=== PATIENT | female | born 1945 | race Caucasian/White ===

== ENCOUNTER → 2017-11-01 | Outpatient (CLI) | payer OTHER, SELFPAY ==
[~2017-11-01] MED LIST: ASPIRIN325 PO; CARBIDOPA-LEVO1 EAC3 PO; CARVEDILOL25 MG PO; DIABETA 5MG TABL5 MG PO; DIOVAN PO; DIOVAN40 MG PO; FLEXERIL PO; FUROSEMIDE 20 M20 M1 PO; GLUMETZA500 PO; GLYBURIDE 2.52.5 M1 PO; GLYBURIDE PO; HYDROCHLOROTHIA25 M1 PO; HYDROCODONE-AP1 EAC6 PO; JANUVIA25 MG PO; LIPITOR20 MG PO; OSTEO BI-FLEX1 EAC1 PO; POTASSIUM CHLO10 ME1 PO; PREDNISONE 2.52.5 M1 PO; PREDNISONE 20 M20 M1 PO; PREMARIN0.3 MG PO; PRILOSEC 20 MG20 MG PO; TRAMADOL 50 MG50 MG PO; TYLENOL EX-STR500 M2 PO; ULTRAM 50MG TAB50 MG PO
== END ==
LOC: M.RAD 09:48
DX: M47.894 Other spondylosis, thoracic region (principal); M47.896 Other spondylosis, lumbar region; M47.892 Other spondylosis, cervical region; M41.86 Other forms of scoliosis, lumbar region; M94.0 Chondrocostal junction syndrome [Tietze]

== ENCOUNTER → 2017-12-03 | Outpatient (CLI) | payer OTHER, SELFPAY ==
[2017-12-03 08:05] LABS: CREATININE 0.6 mg/dL (0.6-1.3)
== END ==
LOC: M.CT 07:40 → M.LAB 08:00 → M.CT 09:00
PROVIDERS: Family Medicine
DX: Z12.31 Encounter for screening mammogram for malignant neoplasm of breast (principal); K57.30 Diverticulosis of large intestine without perforation or abscess without bleeding; K44.9 Diaphragmatic hernia without obstruction or gangrene; M47.896 Other spondylosis, lumbar region

== ENCOUNTER → 2018-01-02 | Outpatient (CLI) | payer OTHER, SELFPAY | LOC: M.RAD 09:08 | DX: S80.02XA Contusion of left knee, initial encounter (principal); M17.12 Unilateral primary osteoarthritis, left knee; M19.072 Primary osteoarthritis, left ankle and foot; M25.462 Effusion, left knee; Z91.81 History of falling; X58.XXXA Exposure to other specified factors, initial encounter; Y93.89 Activity, other specified; Y92.89 Other specified places as the place of occurrence of the external cause; Y99.8 Other external cause status ==

== ENCOUNTER → 2018-04-14 | Outpatient (CLI) | payer OTHER, SELFPAY | LOC: M.CT 08:27 | DX: J32.0 Chronic maxillary sinusitis (principal) ==

== ENCOUNTER → 2018-06-11 | Outpatient (CLI) | payer OTHER, SELFPAY | LOC: M.MRI 06-02 11:03 | DX: S83.207A Unspecified tear of unspecified meniscus, current injury, left knee, initial encounter (principal); M71.22 Synovial cyst of popliteal space [Baker], left knee; M25.462 Effusion, left knee; M48.02 Spinal stenosis, cervical region; M50.323 Other cervical disc degeneration at C6-C7 level; X58.XXXA Exposure to other specified factors, initial encounter; Y93.89 Activity, other specified; Y92.89 Other specified places as the place of occurrence of the external cause; Y99.8 Other external cause status ==

== ENCOUNTER → 2019-02-11 | Outpatient (CLI) | payer OTHER ==
[~2019-02-11] MED LIST changes: +ESTRADIOL 1 MG T1 M1 PO; +PROTONIX 20 MG20 M1 PO
[2019-02-11 11:17] LABS: ABSOLUTE LYMPHOCYTES 1.8 thou/uL (0.8-5.3); ABSOLUTE MONOCYTES 0.6 thou/uL (0.0-1.2); ABSOLUTE NEUTROPHILS 4.3 thou/uL (1.6-8.1); BASOPHILS 0.7 %; EOSINOPHILS 0.4 %; HEMATOCRIT 32.3 % (37.0-47.0); HEMOGLOBIN 9.8 gm/dL (12.0-15.0); LYMPHOCYTES 26.8 %; MCH 20.2 pg (26.0-34.0); MCHC 30.4 g/dL (28.0-37.0); MCV 66.6 fL (80.0-100.0); MONOCYTES 8.2 %; MPV 8.6 fl. (7.2-11.1); NUCLEATED RBCS 0 /100WBC; PLATELET COUNT* 295 thou/uL (150-400); POLYS 63.9 %; RBC 4.85 mil/uL (4.20-5.00); WBC 6.7 thou/uL (4.0-11.0)
[2019-02-11 11:45] LABS: ALBUMIN 3.5 g/dL (3.4-5.0); CALCIUM 9.5 mg/dL (8.5-10.1); CREATININE 0.4 mg/dL (0.6-1.3); POTASSIUM 3.9 mmol/L (3.5-5.1); TOTAL BILIRUBIN 0.4 mg/dL (<0.1-1.0); TOTAL PROTEIN 6.7 g/dL (6.4-8.2)
[2019-02-11 11:56] LABS: HYPOCHROMASIA 2+
[2019-02-11 11:57] LABS: MICROCYTES 2+
[2019-02-11 11:58] LABS: ANISOCYTOSIS 2+
[2019-02-11 11:59] LABS: PLATELET ESTIMATE ADEQUATE
[2019-02-12 09:08] LABS: GLYCOHEMOGLOBIN (HGB A1C) 7.9 % (4.8-5.6)
== END ==
LOC: M.LAB 10:58
PROVIDERS: Nurse Practitioner Family
DX: I10 Essential (primary) hypertension (principal); E11.9 Type 2 diabetes mellitus without complications

== ENCOUNTER 2019-02-17 09:16 | Emergency (ER) | payer OTHER ==
[~2019-02-17] VITALS: Ht 162.6 cm; Wt 73.5 kg
[~2019-02-17 09:16] MED LIST changes: -DIABETA 5MG TABL5 MG PO; -ESTRADIOL 1 MG T1 M1 PO; +GLYBURIDE 3 MG M3 MG PO; -PROTONIX 20 MG20 M1 PO
[2019-02-17] MEDS ORDERED: TRAMADOL 50 MG50 MG PO (09:30)
[2019-02-17] MEDS ORDERED: PROTONIX 20 MG20 M1 PO (09:30)
[2019-02-17] MEDS ORDERED: ESTRADIOL 1 MG T1 M1 PO (09:31)
[2019-02-17 09:44] LABS: ABSOLUTE LYMPHOCYTES 1.3 thou/uL (0.8-5.3); ABSOLUTE MONOCYTES 0.6 thou/uL (0.0-1.2); ABSOLUTE NEUTROPHILS 3.2 thou/uL (1.6-8.1); BASOPHILS 0.7 %; EOSINOPHILS 0.4 %; HEMATOCRIT 29.7 % (37.0-47.0); HEMOGLOBIN 9.1 gm/dL (12.0-15.0); LYMPHOCYTES 25.3 %; MCH 20.4 pg (26.0-34.0); MCHC 30.5 g/dL (28.0-37.0); MCV 66.7 fL (80.0-100.0); MONOCYTES 11.5 %; MPV 7.7 fl. (7.2-11.1); NUCLEATED RBCS 0 /100WBC; PLATELET COUNT* 229 thou/uL (150-400); POLYS 62.1 %; RBC 4.45 mil/uL (4.20-5.00); RDW-CV 18.9 % (10.5-14.5); WBC 5.1 thou/uL (4.0-11.0)
[2019-02-17 09:54] LABS: CREATININE 0.5 mg/dL (0.6-1.3); POTASSIUM 3.7 mmol/L (3.5-5.1); PROTIME 10.7 Seconds (9.20-11.50)
[2019-02-17 09:59] LABS: ALBUMIN 3.2 g/dL (3.4-5.0); TOTAL BILIRUBIN 0.4 mg/dL (<0.1-1.0); TOTAL PROTEIN 6.5 g/dL (6.4-8.2)
[2019-02-17 10:50] VITALS: BP 151/54
[2019-02-17 11:08] LABS: HYPOCHROMASIA 2+
[2019-02-17 11:09] LABS: ANISOCYTOSIS 2+; MICROCYTES 1+
--- NOTE | 2019-02-17 16:27 | EKG ---
[place] [address] ELECTROCARDIOGRAM REPORT Name: KIERRA SHARP [id number] Admission: 02/17/19 Attend Phys: Discharge: 02/17/19 Date of : 47 Report #: [id number] THIS REPORT FOR: //name// [facility] ED Test Date: 2019-02-17 Test Time: 09:43:27 Pat Name: KIERRA SHARP Department: Room: Gender: F Side Guider: : 1945 Requested By: Hadley Houston Order Number: [id number] MD: Hugh Dempsey Measurements Intervals [place] Rate: 98 P: 54 FL: 135 QRS: -5 QRSD: 90 T: 104 QT: 345 QTc: 441 Interpretive Statements Sinus rhythm Ventricular premature complex Nonspecific repol abnormality, lateral leads Borderline ST elevation, anterior leads Compared to ECG 11/29/2016 11:43:53 Ventricular premature complex(es) now present Early repolarization now present ST (T wave) deviation now present Electronically Signed On 02-17-2019 16:27:00 CDT by Hugh Dempsey [email or web address] <ELECTRONICALLY SIGNED> By: Hugh Dempsey MD, [facility] 02/17/19 1627 0943 0943 Hugh Dempsey MD, [facility] /EPI
== END 2019-02-17 10:50 | disposition home or self-care (01) ==
LOC: M.ERS 09:16
PROVIDERS: Family Medicine
DX: R53.1 Weakness (principal); E11.9 Type 2 diabetes mellitus without complications; I10 Essential (primary) hypertension; M06.9 Rheumatoid arthritis, unspecified; Z90.710 Acquired absence of both cervix and uterus; Z98.890 Other specified postprocedural states; Z88.5 Allergy status to narcotic agent

== ENCOUNTER 2019-02-20 11:27 | Inpatient (IN) | payer OTHER ==
[~2019-02-20] VITALS: Ht 162.6 cm; Wt 73.5 kg
[~2019-02-20 11:27] MED LIST changes: +ESTRADIOL 1 MG T1 M1 PO; +PROTONIX 20 MG20 M1 PO
[2019-02-20 11:44] VITALS: BP 179/76
[2019-02-20 11:59] LABS: ABSOLUTE LYMPHOCYTES 1.9 thou/uL (0.8-5.3); ABSOLUTE MONOCYTES 0.7 thou/uL (0.0-1.2); ABSOLUTE NEUTROPHILS 3.4 thou/uL (1.6-8.1); BASOPHILS 0.5 %; EOSINOPHILS 0.4 %; HEMATOCRIT 31.2 % (37.0-47.0); HEMOGLOBIN 9.6 gm/dL (12.0-15.0); LYMPHOCYTES 30.9 %; MCH 20.6 pg (26.0-34.0); MCHC 30.8 g/dL (28.0-37.0); MCV 66.9 fL (80.0-100.0); MPV 8.8 fl. (7.2-11.1); NUCLEATED RBCS 0 /100WBC; PLATELET COUNT* 250 thou/uL (150-400); POLYS 56.2 %; RBC 4.66 mil/uL (4.20-5.00); RDW-CV 19.2 % (10.5-14.5); WBC 6.1 thou/uL (4.0-11.0)
[2019-02-20 12:04] LABS: CALCIUM 9.8 mg/dL (8.5-10.1); CREATININE 0.4 mg/dL (0.6-1.3); POTASSIUM 3.8 mmol/L (3.5-5.1)
[2019-02-20 12:09] LABS: ALBUMIN 3.5 g/dL (3.4-5.0); TOTAL BILIRUBIN 0.4 mg/dL (<0.1-1.0); TOTAL PROTEIN 7.1 g/dL (6.4-8.2)
[2019-02-20 12:30] LABS: PROTIME 10.6 Seconds (9.20-11.50)
[2019-02-20 12:52] LABS: PLATELET ESTIMATE ADEQUATE
[2019-02-20 12:53] LABS: HYPOCHROMASIA 1+; LARGE PLATELETS OCCASIONAL; MICROCYTES 2+
[2019-02-20 12:54] LABS: ANISOCYTOSIS 1+; POIKILOCYTOSIS 2+
[2019-02-20 14:14] LABS: URINE BILIRUBIN NEGATIVE (Negative); URINE BLOOD NEGATIVE (Negative); URINE CLARITY CLEAR; URINE COLOR YELLOW; URINE GLUCOSE-RANDOM NEGATIVE (Negative); URINE KETONES NEGATIVE (Negative); URINE LEUKOCYTES-REFLEX NEGATIVE (Negative); URINE NITRITE-REFLEX NEGATIVE (Negative); URINE PROTEIN NEGATIVE (Negative); URINE UROBILINOGEN 0.2 E.U./dl (0.2-1.0)
[2019-02-20] MEDS ORDERED: ADULT LOW DOSE81 MG PO (14:35)
[2019-02-20 16:28] VITALS: BP 138/59
--- NOTE | 2019-02-20 16:49 | EKG ---
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 : 1945 Requested By: Shelby Frederick Order Number: [id number] MD: Hugh Dempsey Measurements Intervals [place] Rate: 103 P: 45 MO: 139 QRS: 2 QRSD: 84 T: 83 QT: 342 QTc: 448 Interpretive Statements Sinus tachycardia Ventricular premature complex Borderline ST elevation, anterior leads Compared to ECG 02/17/2019 09:43:27 Sinus rhythm no longer present Early repolarization no longer present ST (T wave) deviation still present Electronically Signed On 02-20-2019 16:49:43 CDT by Hugh Dempsey [email or web address] <ELECTRONICALLY SIGNED> By: Hugh Dempsey MD, [facility] 02/20/19 1649 1147 1147 Hugh Dempsey MD, [facility] /EPI
[2019-02-20 17:00] VITALS: BP 141/62
[2019-02-20 20:00] VITALS: BP 160/61
[2019-02-21] VITALS (8 sets, daily range): BP systolic 89–162; BP diastolic 51–77
[2019-02-21 04:59] LABS: HEMATOCRIT 29.2 % (37.0-47.0); HEMOGLOBIN 8.7 gm/dL (12.0-15.0); MCH 20.1 pg (26.0-34.0); MPV 8.8 fl. (7.2-11.1); RBC 4.35 mil/uL (4.20-5.00); RDW-CV 19.5 % (10.5-14.5); WBC 5.4 thou/uL (4.0-11.0)
[2019-02-21 05:22] LABS: ALBUMIN 3.1 g/dL (3.4-5.0); ALKALINE PHOSPHATASE 86 U/L (46-116); ANION GAP 11 mmol/L (7-16); BUN 10 mg/dL (7-18); CALCIUM 9.4 mg/dL (8.5-10.1); CHLORIDE 110 mmol/L (98-107); CO2 24 mmol/L (21-32); CREATININE 0.3 mg/dL (0.6-1.3); GLUCOSE 121 mg/dL (70-99); SGOT 14 U/L (15-37); SGPT 24 U/L (30-65); SODIUM 145 mmol/L (136-145); TOTAL BILIRUBIN 0.4 mg/dL (<0.1-1.0); TOTAL PROTEIN 5.8 g/dL (6.4-8.2); TROPONIN-I LEVEL <0.06 ng/mL (<0.06)
[2019-02-22] VITALS (8 sets, daily range): BP systolic 144–171; BP diastolic 56–78
[2019-02-22 02:09] LABS: GLYCOHEMOGLOBIN (HGB A1C) 7.7 % (4.8-5.6)
[2019-02-22 05:28] LABS: CHOLESTEROL 89 mg/dL (<200); HDL CHOLESTEROL 34 mg/dL (>40); LDL CHOLESTEROL 39 mg/dL (<100); TC:HDL 2.6 Ratio (Not establshd); TRIGLYCERIDE 80 mg/dL (<150); VLDL 16 mg/dL (<40)
[2019-02-22 05:35] LABS: SERUM ASSESSMENT CLEAR
[2019-02-23] VITALS (8 sets, daily range): BP systolic 142–174; BP diastolic 58–74
[2019-02-23 04:22] LABS: ABSOLUTE EOSINOPHILS 0.1 thou/uL (0.0-0.7); ABSOLUTE LYMPHOCYTES 1.9 thou/uL (0.8-5.3); ABSOLUTE MONOCYTES 0.6 thou/uL (0.0-1.2); ABSOLUTE NEUTROPHILS 2.6 thou/uL (1.6-8.1); BASOPHILS 0.6 %; HEMATOCRIT 28.1 % (37.0-47.0); HEMOGLOBIN 8.5 gm/dL (12.0-15.0); LYMPHOCYTES 36.1 %; MCH 20.3 pg (26.0-34.0); MCHC 30.2 g/dL (28.0-37.0); MCV 67.2 fL (80.0-100.0); MPV 8.7 fl. (7.2-11.1); NUCLEATED RBCS 0 /100WBC; PLATELET COUNT* 194 thou/uL (150-400); POLYS 50.3 %; RBC 4.19 mil/uL (4.20-5.00); RDW-CV 19.2 % (10.5-14.5); WBC 5.2 thou/uL (4.0-11.0)
[2019-02-23 04:35] LABS: CALCIUM 9.5 mg/dL (8.5-10.1); CREATININE 0.3 mg/dL (0.6-1.3); POTASSIUM 3.8 mmol/L (3.5-5.1)
[2019-02-23 06:34] LABS: ANISOCYTOSIS 1+; HYPOCHROMASIA 2+; MICROCYTES 2+
[2019-02-23 06:35] LABS: PLATELET ESTIMATE ADEQUATE
[2019-02-23] MEDS ORDERED: COZAAR 25 MG TA25 M2 PO (10:06)
[2019-02-23] MEDS ORDERED: PLAVIX 75 MG TA75 M1 PO (10:07)
--- NOTE | 2019-02-23 12:29 | CON ---
[address] [address] CONSULTATION Name: KIERRA SHARP Room: [address] ADM IN M.R.#: [id number] Admission: 02/20/19 Attend Phys: Leander Snider, Discharge: Date of : 47 Report #: [id number] THIS REPORT FOR: //name// CC: Kaitlin Snider DATE OF SERVICE: 02/20/2019 DICTATED BY: Dr. Eckert. HISTORY OF PRESENT ILLNESS: This is a 73-year-old female patient who was discussed with Dr. Mckeon from Emergency Room multiple times today. I talked to the patient and I talked to the patient's daughter twice on the phone and then talked to the patient niece, they had multiple questions, which I discussed with them as good as I could discuss. The history is poorly defined. She indicates the symptoms started about 6 weeks ago. It was mostly in the right upper extremity then, the symptoms have progressed. It is not clear how much she has progressed. She was here 3 days ago. She was seen and apparently she had some weakness and she was told that she had some pinched nerve in the neck. It was noticed that time that she had some speech difficulty. Since then, she has become worse; when did she become worse is not clear. She thinks it was about 3 days ago. She had an MRI from the Emergency Room and I reviewed those films. I called Dr. Griffin who read that MRI and I discussed with him it is clearly showing up on the T2 weighted images and he agreed it is stroke of a few days' duration. The worrisome feature is the patient has unintentional weight loss and that is an excessive weight lost in the last few months. She does not know why she is losing her weight. She has a history of laminectomy, kidney infection, diabetes, hypertension. This was a relevant 14-point review of systems. PAST MEDICAL HISTORY: Positive for weight loss, which is recent. Past medical history is negative for stroke. FAMILY HISTORY: Unremarkable. SOCIAL HISTORY: She has multiple family members here and I discussed the situation with them in great detail as well as the patient in great detail. PHYSICAL EXAMINATION: Indicates she is markedly dysarthric and dysphasic. She can still understand, but she has a lot of time expressing herself. She has paraphasia. Cranial nerve examination 2-12 indicate right facial weakness as well as right upper extremity and right lower extremity weakness. There is no meningeal sign. I could not look at the patient's fundus. Cardiac examinations appear unremarkable. No respiratory difficulty was noticed. Blood pressure is 138/59, respirations 15, pulse [place] 107[place] [address] CONSULTATION Name: KIERRA SHARP Room: [address] IN M.R.#: [id number] Admission: 02/20/19 Attend Phys: Leander Snider, Discharge: Date of : 47 Report #: [id number] LABORATORY DATA: Indicates a white count of 6.1. I reviewed the MRI and they are summarized as above. 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 She does may have a thrombus there. There is nothing which can be done about it, the best I can tell. The history is very unclear and very difficult to be certain about it. She said she became worse at least 3 days ago, but she became worse even this morning. I think the worsening may be because the left middle cerebral artery is getting blocked further. I cannot rule out tumor, especially because of such profound weight loss. I discussed all the options with the patient. I discussed the situation with the radiologist. I discussed their options with her. I discussed with them one of the option is to do CT stroke protocol that will give us an angiogram and further evaluate how much stenosis is there. I will also go ahead and do perfusion at the same time to make sure the tissue is and not salvageable, that is just to make sure. I discussed with them that the complication can occur with a CT angiogram. I discussed all of them including allergic reaction, kidney failure extravasation of the dye and they understood all those. She wanted to proceed with CT stroke protocol. Dr. Griffin from Radiology recommended the same thing and it will also tell us whether the tissue is enhancing is not. That is what the patient's family and the patient wanted to do and we will set it up and see what it shows. Thank you very much for this referral and I have spent about 50 minutes taking care of this patient and I will review the CT angio. More than half of that time was spent counseling and coordinating the care of this patient. For some reason, the patient is also anemic and that also may have to be worked up, especially in light of the fact that she has pretty significant weight loss recently. This patient also has spinal stenosis that also needs to be addressed and I will discuss the MRI with neuroradiologist later on. <ELECTRONICALLY SIGNED> By: Sandro Luo MD 02/23/19 1229 1835 0532Sandro Luo MD /nt
--- NOTE | 2019-02-23 14:24 | 2DMMODE ---
[place] [address] 2 D/M-MODE ECHOCARDIOGRAM Name: KIERRA SHARP Room: [address] ADM IN M.R.#: [id number] Admission: 02/20/19 Attend Phys: Leander Rosario Discharge: Date of : 47 Date of Service: 02/23/19 1424 Report #: [id number] THIS REPORT FOR: //name// APPROVED REPORT Study performed: 02/23/2019 10:01:20 EXAM: Comprehensive 2D, Doppler, and color-flow Echocardiogram Patient Location: Bedside BSA: 1.77 HR: 158 bpm BP: 154/58 mmHg Other Information Study Quality: Good Indications CVA/TIA Echo Enhancing Agent Indication: Rule out Shunt Agent(s) / Amount(s) Used: Agitated Saline cc 2D Dimensions IVSd: 10.04 (7-11mm) LVOT Diam: 16.50 (18-24mm) LVDd: 48.59 mm PWd: 10.45 (7-11mm) Ascending Ao: 26.97 (22-36mm) LVDs: 28.27 (25-40mm) Aortic Root: 25.17 mm Volumes Left Atrial Volume (Systole) LA ESV Index: 30.60 mL/m2 Aortic Valve AoV Peak Roc.: 2.46 m/s AO Peak Gr.: 24.30 mmHg LVOT Max P.59 mmHg AO Mean Gr.: 12.87 mmHg LVOT Mean P.95 mmHg LVOT Max V: 1.28 m/s AO V2 VTI: 47.50 cm LVOT Mean V: 0.78 m/s BUZZ (VTI): 1.02 cm2 LVOT V1 VTI: 22.61 cm Mitral Valve E/A Ratio: 0.88 [place] [address] 2 D/M-MODE ECHOCARDIOGRAM Name: KIERRA SHARP Room: [address] IN .R.#: [id number] Admission: 02/20/19 Attend Phys: Leander Rosario Discharge: Date of : 47 Date of Service: 02/23/19 1424 Report #: [id number] MV Decel. Time: 337.73 ms MV E Max Roc.: 1.20 m/s MV PHT: 97.94 ms MVA (PHT): 2.25 cm2 TDI E/Lateral E': 13.33 E/Medial E': 12.00 Medial E' Roc.: 0.10 m/s Lateral E' Roc.: 0.09 m/s Pulmonary Valve PV Peak Roc.: 1.64 m/s PV Peak Gr.: 10.74 mmHg Tricuspid Valve RAP Estimate: 5.00 mmHg TR Peak Gr.: 47.52 mmHg RVSP: 52.52 mmHg PA Pressure: 52.52 mmHg Left Ventricle The left ventricle is normal size. There is normal LV segmental wall motion. There is normal left ventricular wall thickness. Left ventricular systolic function is normal. The left ventricular ejection fraction is within the normal range. LVEF is 60-65%. Grade I - abnormal relaxation pattern. Right Ventricle The right ventricle is normal size. The right ventricular systolic function is normal. Atria The left atrium size is normal. Injection of bubbles documented no interatrial shunt. The right atrium size is normal. Aortic Valve The Aortic valve is sclerotic. No aortic regurgitation is present. Mild aortic stenosis. Mitral Valve There is mitral annular calcification. Trace mitral regurgitation. No evidence of mitral valve stenosis. Tricuspid Valve The tricuspid valve is normal in structure. Trace tricuspid regurgitation[place] [address] 2 D/M-MODE ECHOCARDIOGRAM Name: KIERRA SHARP Room: [address] IN [facility]#: [id number] Admission: 02/20/19 Attend Phys: Leander Rosario Discharge: Date of : 47 Date of Service: 02/23/19 1424 Report #: [id number] The pulmonary valve is normal in structure. There is no pulmonic valvular regurgitation. Great Vessels The aortic root is normal in size. IVC is normal in size and collapses >50% with inspiration. Pericardium There is no pericardial effusion. <Conclusion> The left ventricle is normal size. There is normal left ventricular wall thickness. Left ventricular systolic function is normal. The left ventricular ejection fraction is within the normal range. LVEF is 60-65%. Grade I - abnormal relaxation pattern. The right ventricle is normal size. The left atrium size is normal. The Aortic valve is sclerotic. No aortic regurgitation is present. Mild aortic stenosis. There is mitral annular calcification. Trace mitral regurgitation. No evidence of mitral valve stenosis. The tricuspid valve is normal in structure. IVC is normal in size and collapses >50% with inspiration. There is normal LV segmental wall motion. Injection of bubbles documented no interatrial shunt. <ELECTRONICALLY SIGNED> By: Fermin Hoover MD, FACC 02/23/19 1424 1424 1424 Fermin Hoover MD, FACC /INF
== END 2019-02-23 16:45 | disposition home health service (06) | DRG 65 ==
LOC: M.ERS 11:27 → M.TBA-ER 15:38 → M.2W 15:38
PROVIDERS: Emergency Medicine; Internal Medicine; Physician Assistant; ADMIT Family Medicine
DX: I63.9 Cerebral infarction, unspecified (principal); E44.1 Mild protein-calorie malnutrition; E11.9 Type 2 diabetes mellitus without complications; I10 Essential (primary) hypertension; M19.90 Unspecified osteoarthritis, unspecified site; R29.704 NIHSS score 4; Z85.820 Personal history of malignant melanoma of skin; Z90.710 Acquired absence of both cervix and uterus; Z79.1 Long term (current) use of non-steroidal anti-inflammatories (NSAID); Z79.899 Other long term (current) drug therapy; Z88.0 Allergy status to penicillin; Z88.6 Allergy status to analgesic agent; Z88.8 Allergy status to other drugs, medicaments and biological substances; Z68.27 Body mass index [BMI] 27.0-27.9, adult

== ENCOUNTER 2019-03-12 19:05 | Inpatient (IN) | payer OTHER ==
[~2019-03-12] VITALS: Ht 165.1 cm; Wt 69.4 kg
[2019-03-12 19:05] VITALS: BP 149/68
[~2019-03-12 19:05] MED LIST changes: +ADULT LOW DOSE81 MG PO; +COZAAR 25 MG TA25 M2 PO; +PLAVIX 75 MG TA75 M1 PO
[2019-03-12] MEDS ORDERED: AMARYL2 MG PO (19:43)
[2019-03-12] MEDS ORDERED: KLOR-CON 1010 MEQ PO (19:43)
[2019-03-12] MEDS ORDERED: JANUVIA50 MG PO (19:43)
[2019-03-12] MEDS ORDERED: ULTRAM 50MG TAB50 MG PO (19:44)
[2019-03-12] MEDS ORDERED: PROTONIX40 M1 PO (19:44)
[2019-03-12 19:51] LABS: ABSOLUTE BASOPHILS 0.1 thou/uL (0.0-0.2); ABSOLUTE LYMPHOCYTES 2.3 thou/uL (0.8-5.3); ABSOLUTE MONOCYTES 0.9 thou/uL (0.0-1.2); ABSOLUTE NEUTROPHILS 4.6 thou/uL (1.6-8.1); BASOPHILS 1.5 %; EOSINOPHILS 0.5 %; HEMATOCRIT 29.5 % (37.0-47.0); HEMOGLOBIN 9.1 gm/dL (12.0-15.0); LYMPHOCYTES 29.3 %; MCH 20.5 pg (26.0-34.0); MCHC 30.9 g/dL (28.0-37.0); MCV 66.4 fL (80.0-100.0); MONOCYTES 10.8 %; MPV 8.9 fl. (7.2-11.1); NUCLEATED RBCS 0 /100WBC; PLATELET COUNT* 248 thou/uL (150-400); POLYS 57.9 %; RBC 4.43 mil/uL (4.20-5.00); WBC 7.9 thou/uL (4.0-11.0)
[2019-03-12 20:05] LABS: PROTIME 10.5 Seconds (9.20-11.50)
[2019-03-12 20:10] LABS: PLATELET ESTIMATE INCREASED
[2019-03-12 20:11] LABS: ANION GAP 8 mmol/L (7-16); BUN 10 mg/dL (7-18); CALCIUM 9.8 mg/dL (8.5-10.1); CHLORIDE 104 mmol/L (98-107); CO2 25 mmol/L (21-32); CREATININE 0.4 mg/dL (0.6-1.3); GLUCOSE 129 mg/dL (70-99); POTASSIUM 3.7 mmol/L (3.5-5.1); SODIUM 137 mmol/L (136-145)
[2019-03-12 20:21] LABS: ALBUMIN 3.2 g/dL (3.4-5.0); ALKALINE PHOSPHATASE 90 U/L (46-116); SGOT 15 U/L (15-37); SGPT 24 U/L (30-65); TOTAL BILIRUBIN 0.4 mg/dL (<0.1-1.0); TOTAL PROTEIN 6.8 g/dL (6.4-8.2); TROPONIN-I LEVEL <0.06 ng/mL (<0.06)
[2019-03-12 21:47] LABS: URINE BILIRUBIN NEGATIVE (Negative); URINE BLOOD NEGATIVE (Negative); URINE CLARITY CLEAR; URINE COLOR YELLOW; URINE GLUCOSE-RANDOM NEGATIVE (Negative); URINE KETONES NEGATIVE (Negative); URINE LEUKOCYTES-REFLEX NEGATIVE (Negative); URINE NITRITE-REFLEX NEGATIVE (Negative); URINE PROTEIN NEGATIVE (Negative); URINE SPECIFIC GRAVITY <= 1.005 (1.005-1.030); URINE UROBILINOGEN 0.2 E.U./dl (0.2-1.0)
[2019-03-12 22:17] VITALS: BP 147/95
[2019-03-13 04:20] VITALS: BP 139/62
--- NOTE | 2019-03-13 06:00 | NUR ---
PT ARRIVED TOP UNIT APROX 2230. A+O. ABLE TO RESPOND TO QUESTIONS APPROPRIATELY BUT HAS PARTIAL APHASIA @ TIMES. PT IS ABLE TO FINALLY SAY THE WORD SHE IS THINKING BUT STRUGGLES @ TIMES. SPEECH IS MORE CLEAR THIS AM. AMBULATES WITH STEADY GAIT. RIGHT ARM WEAKNESS- PT REPORTS THIS HAS BEEN GOING ON SINCE HER ADMISSION 10 DAYS AGO WITH A STROKE AND THAT SHE HAS NOT YET STARTED PT/OT FOR HER ARM. CAN LIFT HER ARM BUT UNABLE TO USE HER RIGHT HAND. NO PAIN OR DISCOMFORT REPORTED OR OBSERVED. CALL LIGHT IN REACH. HOURLY ROUNDING FOR SAFETY.
[2019-03-13 07:30] VITALS: BP 129/56
[2019-03-13 11:46] VITALS: BP 137/56
--- NOTE | 2019-03-13 14:08 | NUR ---
MET WITH PT, SON AND GF TO DISCUSS HOME SITUATION/DC PLANNING. PT LIVES WITH SON, HIS GF, NIECE AND GRANDCHILDREN. PT USES NO EQUIPMENT. HAD RECENT CVA AND IS CURRENTLY ON SERVICE WITH [facility]. WOULD LIKE TO CONTINUE WITH THEIR SERVICES AT [place]. CONTACTED [facility], FAXED CLINICAL. THEY WILL NEED CALLED AND ORDERS FAXED AT [place]. WILL FOLLOW [facility] [phone] FAX [phone]
[2019-03-13 14:10] VITALS: BP 137/56
[2019-03-13 16:00] VITALS: BP 147/55
--- NOTE | 2019-03-13 16:41 | EKG ---
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: MED STUDENT : 1945 Requested By: Enriqueta Holbrook Order Number: [id number] Reading MD: Fermin Hoover Measurements Intervals [place] Rate: 100 P: 59 ID: [id number] QRS: -3 QRSD: 91 T: 86 QT: 343 QTc: 443 Interpretive Statements Sinus tachycardia Probable left atrial enlargement Possible anteroseptal infarct old Compared to ECG 02/20/2019 11:47:29 Myocardial infarct finding now present Ventricular premature complex(es) no longer present ST (T wave) deviation no longer present Electronically Signed On 03-13-2019 16:41:33 CDT by Fermin Hoover [email or web address] <ELECTRONICALLY SIGNED> By: Fermin Hoover MD, FAC 03/13/19 1641 52 52 Fermin Hoover MD, FAC /EPI
--- NOTE | 2019-03-13 16:52 | NUR ---
VSS, ASSUMED CARE IN THE AM, ASSESSMENT PERFORMED AND CHARTED, FALL PRECAUTIONS IN PLACE AND CALL LIGHT IN REACH, PT IS A&O4 AND UP AD ECHO, PT IS TRACING SR ON THE MONITOR, SHE HAS WEAKNEES IN RIGHT HAND, PT STATS PAIN IN HER BACK, HE GOAL IS TO COMPLETE MRI AND TO WORK WITH PT/OT/SP, AT THIS TIME GOALS HAVE BEEN MET, WILL FOLLOW WITH PLAN OF CARE AND HOURLY ROUNDS,
[2019-03-14] VITALS: BP 131/63
[2019-03-14 04:30] VITALS: BP 165/65
[2019-03-14 05:15] LABS: HEMATOCRIT 26.6 % (37.0-47.0); HEMOGLOBIN 8.3 gm/dL (12.0-15.0); MCH 20.9 pg (26.0-34.0); MCHC 31.3 g/dL (28.0-37.0); MCV 66.9 fL (80.0-100.0); MPV 8.8 fl. (7.2-11.1); RBC 3.98 mil/uL (4.20-5.00); RDW-CV 18.7 % (10.5-14.5); WBC 4.9 thou/uL (4.0-11.0)
--- NOTE | 2019-03-14 07:05 | NUR ---
CHANGE OF SHIFT, BEDSIDE REPORT GIVEN PATIENT SEEN AT BEDSIDE, IN BED ASLEEP ASSUMED PATIENT CARE
[2019-03-14 08:00] VITALS: BP 143/54
[2019-03-14 11:50] VITALS: BP 136/57
--- NOTE | 2019-03-14 14:40 | CON ---
[address] [address] CONSULTATION Name: KIERRA SHARP Room: [address] ADM IN M.R.#: [id number] Admission: 03/12/19 Attend Phys: Calixto Ring MD Discharge: Date of : 47 Report #: [id number] THIS REPORT FOR: //name// CC: Alex Ring DATE OF SERVICE: 03/13/2019 HISTORY OF PRESENT ILLNESS: This is a 73-year-old female patient who was here for right-sided weakness and aphasia. According to the family, she became worse. She was recommended to go to rehab, but neither the patient's family nor the patient wanted to go to rehab and she went home. She was supposed to have a 30-day event monitor. I do not think it was ever put in. According to the family, the symptoms became worse and she came to the hospital again. REVIEW OF SYSTEMS: I had seen this patient in the past. This patient had a stroke in the left middle cerebral artery distribution. She came to Emergency Room and Dr. Holbrook worked her up with a CT angiogram and perfusion. She subsequently called me and I discussed the patient with her. She is on combination of aspirin and Plavix. She is on statin and she still had aggravation of the deficit. A 14-point review of system was carried out and is positive for the stroke. The patient had seen pain management in the past. The patient does have her own pretty firm ideas about the rehab, etc. and she really wanted to go home. She has a recent history of weight loss. There is some question of pain in the neck area. There was a relevant 14-point review of system. PAST MEDICAL HISTORY: Positive for stroke, which happened recently. FAMILY HISTORY: Negative for early age strokes. SOCIAL HISTORY: She has a pretty extended family and they are involved with the patient's care. PHYSICAL EXAMINATION: GENERAL: Indicates she is alert. She is responsive. NEUROLOGICAL: Her speech does look worse, but she is still able to express herself, but with difficulty. She can follow commands. Cranial nerve examination 2-12 was attempted, the best I can tell, it would appear noncontributory. She moves all 4 extremities. There is no meningeal sign. CARDIAC AND RESPIRATORY: Appears noncontributory. IMPRESSION: The patient may have extended the stroke. Limited thing can be done. She is already on dual antiplatelet therapy. She is already on statin. I have again reminded her that she needs a 30-day event monitor to look for atrial fibrillation. Rest of the workup was done. We will restart the PT, [place] [address] CONSULTATION Name: SHARPKIERRA Room: [address] IN M.R.#: [id number] Admission: 03/12/19 Attend Phys: Calixto Ring MD Discharge: Date of : 47 Report #: [id number] and I would like to do an MRI to see if she has extended her stroke and I ordered that and Dr. Wagoner will follow up this patient with you from tomorrow. <ELECTRONICALLY SIGNED> By: Sandro Luo MD 03/14/19 1440 1440 2219Sandro Luo MD /nt
--- NOTE | 2019-03-14 14:40 | EEG ---
[address] [address] EEG STUDY REPORT Name: KIERRA SHARP Room: [address] IN M.R.#: [id number] Admission: 03/12/19 Attend Phys: Calixto Ring MD Discharge: Date of : 47 Report #: [id number] THIS REPORT FOR: //name// CC: Alex Ring DATE OF SERVICE: 03/14/2019 This patient is admitted with weakness on the right side. EEG was done by placing the electrode by standard 10-20 system of electrode placement. Both referential and sequential montages were used for recording. Background activity in this patient's EEG is about 9 Hz and 30 microvolt. It is intermixed with theta range slowing on both sides. The patient became drowsy that is associated with bilateral slowing and vertex sharp waves. Throughout the record, no active epileptiform activity was noticed. IMPRESSION: This patient's EEG is slow on the left side. That may be consistent with the left-sided stroke. EEG is also slow in generalized fashion. There is a nonspecific abnormality, which could occur with dementia, encephalopathy, effect of psychotropic medication, etc. Clinical correlation is recommended. <ELECTRONICALLY SIGNED> By: Sandro Luo MD 03/14/19 1440 1426 1434Prafael Luo MD /nt
[2019-03-14 16:11] VITALS: BP 149/58
[2019-03-14 20:00] VITALS: BP 146/47
[2019-03-15 00:40] VITALS: BP 154/59
[2019-03-15 04:00] VITALS: BP 158/70
--- NOTE | 2019-03-15 07:15 | NUR ---
CHANGE OF SHIFT, BEDSIDE REPORT GIVEN PATIENT SEEN AT BEDSIDE, IN BED RESTING ASSUMED PATIENT CARE
[2019-03-15 08:00] VITALS: BP 150/48
[2019-03-15 12:23] VITALS: BP 154/57
[2019-03-15 15:47] VITALS: BP 145/60
[2019-03-15 20:00] VITALS: BP 158/78
[2019-03-16] VITALS: BP 159/62
--- NOTE | 2019-03-16 00:34 | NUR ---
TRANSFER OF CARE GIVEN TO MICHAELA LÓPEZ. ALLOWED FOR QUESTIONS.
--- NOTE | 2019-03-16 00:35 | NUR ---
PT SLEEPING QUIETLY, TELE MONITOR SR. NO S/SX OF DISTRESS NOTED. WILL CONTINUE TO MONITOR AND PROVIDE CARES NEEDED. CALL LITE IN EASY REACH.
[2019-03-16 04:00] VITALS: BP 158/59
--- NOTE | 2019-03-16 05:37 | NUR ---
PT HAS SLEPT WELL SINCE I ASSUMED CARE. UP WITH STEADY GAIT TO BR TO VOID. R HAND WEAKNESS. AOX4. RAC SL. NO LABS DRAWN THIS MORNING. ABLE TO USE CALL LITE AND MAKE NEEDS KNOWN. TELE SR. POSSIBLE DC TO REHAB TODAY.
[2019-03-16 07:50] VITALS: BP 146/52
[2019-03-16] MEDS ORDERED: HYDROCHLOROTH12.5 M1 PO (09:14)
[2019-03-16] MEDS ORDERED: COZAAR 25 MG TA25 M1 PO (09:14)
[2019-03-16] MEDS ORDERED: LIPITOR40 MG PO (09:41)
--- NOTE | 2019-03-16 10:47 | NUR ---
ASSUMED CARE OF PT AT 0730. PT RESTING IN CHAIR WAITING FOR BREAKFAST. PT A&0X4, EXPRESSIVE APHASIA NOTED. PT COMPLAINS OF GENERALIZED PAIN FROM ARTHRITIS. TREATED WITH PRN TYLENOL WITH RELIEF. PT TRACING SR ON THE SUPPLIER QUALITY SPECIALIST. ON RA SAT UPPER 90'S. PT UP WITH SBA TO BATHROOM. RIGHT UPPER EXTREMITY WEAKNESS, MOSTLY TO PT HAND NOTED. NIH COMPLETED. REFER TO CHARTING. REHAB CONSULT IN PLACE. PT GOAL FOR TODAY IS WORK WITH PT, OT AND ST AND DISCAHRGE TO REHAB VS HOME. AM ASSESSMENT CHARTED. MEDICATIONS PER OCT. PT REPOSITIONS SELF. HOURLY ROUNDING OBSERVED. BED IN LOW POSITION. CALL LIGHT WITHIN REACH. WILL CONTINUE PLAN OF CARE.
[2019-03-16 12:08] VITALS: BP 149/78
--- NOTE | 2019-03-16 13:01 | NUR ---
INDUSTRIAL ARTS TEACHER: MET WITH PATIEN TODAY REGARDING STROKE EXTENSION. WAITING FOR AUTHORIZATION FOR REHAB. NO QUESTIONS THIS TIME.
--- NOTE | 2019-03-16 13:36 | NUR ---
CONTINUE TO FOLLOW, ORDERS NOTED FOR DC TO INPT REHAB. MET WITH PT AND UPDATED SON/BEAU BY PHONE. AWAIT INSURANCE AUTH
[2019-03-16 15:40] VITALS: BP 144/57
[2019-03-16 16:10] VITALS: BP 133/49
--- NOTE | 2019-03-16 18:49 | NUR ---
NO ACUTE CHANGES THROUGHOUT SHIFT. REFER TO CHARTING. PT WORKED WITH PT, OT AND ST TODAY-TOLERATED WELL. AWAITING INSURANCE AUTH FOR REHAB DISCHARGE. PT COMPLAINED OF HEADACHE THIS AFTERNOON, TREATED WITH PRN TYLENOL WITH RELIEF. PT PROGRESSING TOWARDS GOALS. CONTINUES TO HAVE EXPRESSIVE APHASIA, CONTINUES TO TRACE SR/ ST ON THE MANAGER DATABASE. PT UP WITH 1 ASSIST AND WALKER TO BATHROOM. MEDICATIONS PER MAR. PT REPOSITIONS SELF. HOURLY ROUNDING OBSERVED. BED IN LOW POSITION. CALL LIGHT WITHIN REACH. WILL CONTINUE PLAN OF CARE.
[2019-03-17 00:49] VITALS: BP 144/59
[2019-03-17 04:00] VITALS: BP 157/47
--- NOTE | 2019-03-17 06:11 | NUR ---
PATIENT SLEPT MOST OF THE NIGHT. IV REMAINS SALINE LOCKED. PATIENT REMAINS SR-STACH ON THE MONITOR. PATIENT HAD NO COMPLAINTS OF PAIN. WILL CONTINUE TO MONITOR.
[2019-03-17 07:40] VITALS: BP 150/66
--- NOTE | 2019-03-17 09:22 | NUR ---
ASSUMED CARE OF PT AT 0730. PT RESTING IN CHAIR WAITING FOR BREAKFAST. PT A&0X4, EXPRESSIVE APHASIA NOTED. PT COMPLAINS OF GENERALIZED PAIN-TREATED WITH PRN TYLENOL WITH RELIEF. PT TRACING ST ON THE SMOKE EATER. RATE IN THE 110'S AT TIMES. PT ON RA SAT UPPER 90'S. PT UP SBA TO BATHROOM. RIGHT UPPER EXTREMITY WEAKNESS NOTED. NIH COMPLETED. NO CHANGES. REFER TO CHARTING. PT GOAL FOR TODAY IS AWAIT INSURANCE AUTH FOR REHAB DISCHARGE VS DISCHARGE HOME. AM ASSESSMENT CHARTED. MEDICATIONS PER MAR. PT REPOSITIONS SELF. HOURLY ROUNDING OBSERVED. BED IN LOW POSITION. CALL LIGHT WITHIN REACH. WILL CONTINUE PLAN OF CARE.
--- NOTE | 2019-03-17 14:45 | NUR ---
HEARD BACK FROM [facility], INS REQUESTED MORE INFO AND PT IS MOD I AND SUPERVISION TODAY. PER [facility], DOESN'T QUALIFY FOR INPT REHAB NOW. UPDATED DR PATEL. OK TO DC HOME WITH HH. MET WITH PT AND SPOKE WITH SON/BEAU OVER THE PHONE. IN AGREEMENT WITH DC HOME WITH HH, TO CONTINUE WITH [facility]. CALLED AND FAXED ORDERS TO [facility]. SON'S GF TO PICK PT UP AROUND 345PM, NURSE AWARE
--- NOTE | 2019-03-17 15:44 | 2DMMODE ---
[place] [address] 2 D/M-MODE ECHOCARDIOGRAM Name: KIERRA SHARP Room: [address] IN [facility]#: [id number] Admission: 03/12/19 Attend Phys: Calixto Ring, Discharge: Date of : 47 Date of Service: 03/17/19 1544 Report #: [id number] THIS REPORT FOR: //name// ADDENDUM APPROVED REPORT Study performed: 03/17/2019 10:33:16 EXAM: Comprehensive 2D, Doppler, and color-flow Echocardiogram Patient Location: In-Patient Room #: [facility] Status: routine BSA: 1.74 HR: 107 bpm BP: 150/66 mmHg Rhythm: NSR Other Information Study Quality: Good Indications CVA/TIA Echo Enhancing Agent Indication: Rule out Shunt Agent(s) / Amount(s) Used: Agitated Saline 10 cc 2D Dimensions IVSd: 10.29 (7-11mm) LVOT Diam: 19.95 (18-24mm) LVDd: 37.32 mm PWd: 10.73 (7-11mm) Ascending Ao: 25.61 (22-36mm) LVDs: 27.10 (25-40mm) Aortic Root: 28.87 mm Volumes Left Atrial Volume (Systole) LA ESV Index: 57.60 mL/m2 Aortic Valve AoV Peak Roc.: 2.86 m/s AO Peak Gr.: 32.79 mmHg LVOT Max P.43 mmHg AO Mean Gr.: 18.10 mmHg LVOT Mean P.93 mmHg LVOT Max V: 1.54 m/s AO V2 VTI: 44.76 cm LVOT Mean V: 1.03 m/s BUZZ (VTI): 1.75 cm2 LVOT V1 VTI: 25.07 [place] [address] 2 D/M-MODE ECHOCARDIOGRAM Name: KIERRA SHARP Room: [address] .R.#: [id number] Admission: 03/12/19 Attend Phys: Calixto Ring, Discharge: Date of : 47 Date of Service: 03/17/19 1544 Report #: [id number] Mitral Valve E/A Ratio: 0.66 MV Decel. Time: 159.54 ms MV E Max Roc.: 1.17 m/s MV PHT: 46.27 ms MVA (PHT): 4.76 cm2 TDI E/Lateral E': 11.70 E/Medial E': 14.63 Medial E' Roc.: 0.08 m/s Lateral E' Roc.: 0.10 m/s Pulmonary Valve PV Peak Roc.: 1.96 m/s PV Peak Gr.: 15.39 mmHg Tricuspid Valve RAP Estimate: 5.00 mmHg TR Peak Gr.: 34.42 mmHg RVSP: 39.00 mmHg PA Pressure: 39.00 mmHg Left Ventricle The left ventricle is normal size. There is normal LV segmental wall motion. There is normal left ventricular wall thickness. Left ventricular systolic function is normal. LVEF is 60-65%. Grade I - abnormal relaxation pattern. Right Ventricle The right ventricle is normal size. The right ventricular systolic function is normal. Atria Left atrium is severely dilated. Interatrial septum is intact without evidence of ASD or PFO. The right atrium size is normal. Aortic Valve Moderate aortic valve sclerosis. Trace aortic regurgitation. Mild aortic stenosis. Mitral Valve There is mitral annular calcification. Trace mitral regurgitation. No evidence of mitral valve stenosis. Tricuspid Valve The tricuspid valve is normal in structure. Mild tricuspid regurgitation. The RVSP is 35-[place] [address] 2 D/M-MODE ECHOCARDIOGRAM Name: KIERRA SHARP Room: [address] IN [facility]#: [id number] Admission: 03/12/19 Attend Phys: Calixto Ring, Discharge: Date of : 47 Date of Service: 03/17/19 1544 Report #: [id number] Pulmonic Valve The pulmonary valve is normal in structure. There is no pulmonic valvular regurgitation. Great Vessels The aortic root is normal in size. IVC is normal in size and collapses >50% with inspiration. Pericardium There is no pericardial effusion. <Conclusion> The left ventricle is normal size. There is normal left ventricular wall thickness. Left ventricular systolic function is normal. LVEF is 60-65%. There is normal LV segmental wall motion. Grade I - abnormal relaxation pattern. Moderate aortic valve sclerosis. Trace aortic regurgitation. Mild aortic stenosis. There is mitral annular calcification. Trace mitral regurgitation. Mild tricuspid regurgitation. IVC is normal in size and collapses >50% with inspiration. <ELECTRONICALLY SIGNED> By: Jabier Combs MD, FACC 03/17/19 1544 1544 1544 Jabier Combs MD, FACC /INF
--- NOTE | 2019-03-17 15:59 | NUR ---
DISCHARGE ORDERS RECEIVED FOR PT TO DISCHARGE HOME. DISCHARGE INSTRUCTIONS, CARE NOTES AND FOLLOW UP APPTS GIVEN TO PT. PT COMMUNICATES UNDERSTANDING OF DISCHARGE TEACHING. IV AND AUTOMOTIVE DESIGN DRAFTER REMOVED. LIPITOR CALLED TO PT PHARMACY. PT DISCHARGED WITH ALL BELONGINGS AND PAPERWORK VIA WHEELCHAIR WITH NURSING STAFF TO CHILD'S OWN PERSONAL VEHICLE.
== END 2019-03-17 16:12 | disposition home health service (06) | DRG 65 ==
LOC: M.ERS 19:05 → M.2W 21:29 → M.TBA-ER 21:29 → M.2W 22:25
PROVIDERS: Internal Medicine; Personal Emergency Response Attendant; ADMIT Internal Medicine
DX: I63.9 Cerebral infarction, unspecified (principal); E44.1 Mild protein-calorie malnutrition; I65.22 Occlusion and stenosis of left carotid artery; R47.01 Aphasia; G83.21 Monoplegia of upper limb affecting right dominant side; I65.01 Occlusion and stenosis of right vertebral artery; E11.9 Type 2 diabetes mellitus without complications; M06.9 Rheumatoid arthritis, unspecified; K21.9 Gastro-esophageal reflux disease without esophagitis; I35.0 Nonrheumatic aortic (valve) stenosis; I10 Essential (primary) hypertension; Z88.0 Allergy status to penicillin; Z88.8 Allergy status to other drugs, medicaments and biological substances; Z79.899 Other long term (current) drug therapy; Z68.25 Body mass index [BMI] 25.0-25.9, adult; Z79.82 Long term (current) use of aspirin; Z90.710 Acquired absence of both cervix and uterus; Z84.89 Family history of other specified conditions

== ENCOUNTER → 2019-04-30 | Outpatient (CLI) | payer OTHER ==
[~2019-04-30] MED LIST changes: +AMARYL2 MG PO; +COZAAR 25 MG TA25 M1 PO; +HYDROCHLOROTH12.5 M1 PO; +HYDROCODON-ACE1 EAC7 PO; +JANUVIA50 MG PO; +KLOR-CON 1010 MEQ PO; +LIPITOR40 MG PO; +LOSARTAN-HCTZ1 EACH PO; +MEDROLDOSEPACK PO; +PROTONIX40 M1 PO
--- NOTE | 2019-05-04 11:25 | PAINCON ---
[address] [address] PAIN MANAGEMENT CONSULTATION Name: ARONKIERRA CISNEROSS Room: [facility] B[facility] Rogers#: [id number] Admission: 04/30/19 Attend Phys: Rizwan Velazquez MD Discharge: Date of : 47 Report #: [id number] THIS REPORT FOR: //name// CC: Alex Velazquez DATE OF SERVICE: 04/30/2019 CHIEF COMPLAINT: Back and leg pain. HISTORY: The patient is a 73-year-old female who has been seen in the pain clinic in the past because of arthritis and chronic pain. She suffered a cerebrovascular accident and has been experiencing some weakness on the right side. She has lost the ability to write her name with her right hand. She is still able to use it. States that there is a numb feeling associated with it. The cerebrovascular incident was 03/17/2019. She has a history of polyarthritis as well as rheumatoid arthritis. She has a history of diabetes and has had some problems with ulcers in the past. She has noticed a recurrence of pain in her low back with pain in the sciatic area. She has come to the pain clinic with a desire to undergo treatment. She has a family history of malignant hyperthermia. She has lost some weight since November. She has lost about 30 pounds. Rates her pain as a 5 with movement. Has used hydrocodone in the past and found that medication helpful. Feels that the sciatic irritation and low back pain resulted as a result of prolonged bed rest while hospitalized at [facility]. She has returned today with desire for pain medications and possibility of an epidural injection to help control her pain. ALLERGIES: FLU VACCINE, PENICILLIN, NATHAN INHIBITORS. History of malignant hyperthermia. CURRENT MEDICATIONS: Tylenol Extra Strength 500 mg, aspirin 325 mg, Lasix 20 mg, glyburide 5 mg, hydrocodone 5/325 t.i.d., omeprazole 20 mg, potassium 10 mEq. PAIN CLINIC ASSESSMENT AND PQRS: 1. History of osteoarthritis. The patient has some arthritic changes to her hands. She has been treated for rheumatoid arthritis. 2. Height 5 feet 4 inches, weight 149 pounds, BMI is 25.6. 3. Vital Signs: Blood pressure 140/63, heart rate 106, respiratory rate 20, room air saturation 96%, temperature is 98.1. 4. Pain intensity 5/10. 5. Fall history: The patient has not fallen since, but has almost fallen. She associates it with trying to walk too rapidly. 6. Blood thinner. The patient is on a medication of Plavix. 7. Hypertension. The patient is [place] [address] PAIN MANAGEMENT CONSULTATION Name: ARONKIERRA CISNEROSS [id number] Admission: 04/30/19 Attend Phys: Rizwan Velazquez MD Discharge: Date of : 47 Report #: [id number] 8. Opioids greater than 6 weeks. 9. Low for opioid use. 10. Functional assessment tool. 11. Recreational drug use. The patient denies use of tobacco at this juncture. 12. Alcohol. The patient denies frequent use of alcoholic beverages. PHYSICAL EXAMINATION: GENERAL: The patient is a well-developed white female, appears her stated age. She is alert and oriented x 3. Her affect is appropriate. Speech is somewhat choppy. She is able to find her words, but does have somewhat of stuttering james. HEENT: The patient is wearing glasses. NECK: With bilateral bruits heard on the left and right side. The patient without adenopathy. HEART: Regular rate. ABDOMEN: Nontender. Bowel sounds are present. EXTREMITIES: Upper extremity muscle strength judged to be 4-/5 left and right side. The patient has somewhat of a kyphotic upper thoracic area without significant evidence of scoliosis. The patient has a well-healed scar in the lower portion of her back from previous surgery at L4-L5. Lower extremity muscle strength judged to be 4+/5 for the major muscle groups in the lower extremity. Right arm and left arm +2 deep tendon reflexes. The patient has a perception of numbness and tingling in the right arm. She is unable to close and make a tight fist with her right fingers. The fingers are not able to touch the palm of her hand. IMPRESSION: 1. Stroke, 03/17/2019 with right-sided weakness, some effect on the speech. 2. Polyarthritis. 3. Increased back pain with sciatica after prolonged bed rest during her hospitalization for the stroke. 4. Rheumatoid arthritis. 5. Hypertension. 6. Diabetes. 7. History of ulcers. RECOMMENDATIONS: We discussed treatment options with the patient. At this time, we will have the patient try a Medrol Dosepak. Hopefully, she will find that this medication would be enough to decrease the pain and discomfort that she is experiencing. Should her pain continue, we will consider an epidural injection. The risks and benefits of these were discussed with the patient. She will also try hydrocodone 5 mg 1 p.o. b.i.d. The patient finds that most of her pain and discomfort are primarily as the day wears on. [place] [address] [place] [address] PAIN MANAGEMENT CONSULTATION Name: KIERRA SHARP Room: [facility]#: [id number] Admission: 04/30/19 Attend Phys: Rizwan Velazquez MD Discharge: Date of : 47 Report #: [id number] We would like to thank you for letting us participate in her care. We hope she continues to improve. <ELECTRONICALLY SIGNED> By: Rizwan Velazquez MD 05/04/19 1125 1026 1213N. Simón Velazquez MD /nt
== END ==
LOC: M.PC 05:14
DX: M54.9 Dorsalgia, unspecified (principal); M79.606 Pain in leg, unspecified; I63.9 Cerebral infarction, unspecified; M13.0 Polyarthritis, unspecified; M06.9 Rheumatoid arthritis, unspecified; I10 Essential (primary) hypertension; E11.9 Type 2 diabetes mellitus without complications; Z88.8 Allergy status to other drugs, medicaments and biological substances; Z88.0 Allergy status to penicillin; Z79.899 Other long term (current) drug therapy; Z79.82 Long term (current) use of aspirin

== ENCOUNTER → 2019-05-26 | Outpatient (CLI) | payer OTHER ==
[~2019-05-26] MED LIST changes: +LOSARTAN POTASS50 MG PO
--- NOTE | 2019-06-17 09:09 | PAINCON ---
[address] [address] PAIN MANAGEMENT CONSULTATION Name: ARONKIERRA DAVID Room: [facility] BEREKET McgovernJosuéVivienneJosué#: [id number] Admission: 05/26/19 Attend Phys: Rizwan Velazquez MD Discharge: Date of : 47 Report #: [id number] THIS REPORT FOR: //name// CC: Alex Velazquez DATE OF SERVICE: 05/26/2019 CHIEF COMPLAINT: Pain in the right hand with weakness and pain in the right hip joint. HISTORY: The patient is a 73-year-old female who has been referred to the pain clinic for evaluation. The patient is having pain and discomfort in 2 areas. She is having pain and discomfort in her right hand with weakness. She is unable to make a concise fist with fingers touch in the palm of her hand. They remain somewhat open. She is unable to write with her right hand. She is a right-handed person. States that she did have some conversation with an occupational therapist. He did not provide much direction. She has had a cerebrovascular incident, this was on 03/17/2019. She continues to have some effects from the stroke. Speech is very intelligible, but she sometimes has to find the words. She has pain in her right hip. Left and right movement of her right foot while sitting can increase pain and discomfort and notes some pain in the hip area. This is noted in the area of her groin. Also, has some pain that radiates down the lateral portion of her leg. She has some pain in the upper back area and the back muscles. She is still taking her Plavix medication. She was using hydrocodone. She feels that tramadol 3 times daily has been providing the same amount of pain relief as she received from the hydrocodone. She would like to continue with that. She also takes Tylenol p.r.n. She had used gabapentin, but this did cause some dizziness. Notes that pain increases with activity and can be sometimes problematic, particularly in the morning and has some perception of some weakness in her right leg. ALLERGIES: FLU VACCINE, PENICILLIN, NATHAN INHIBITORS. PAST MEDICAL HISTORY: History of malignant hyperthermia. CURRENT MEDICATIONS: Tylenol Extra Strength, aspirin 325 mg, Lasix, glyburide, hydrocodone 5/325, omeprazole 20 mg, potassium 10 mEq. PAIN CLINIC ASSESSMENT/PQRS: 1. History of osteoarthritis. The patient has some arthritic changes in her hands. She has been treated for rheumatoid arthritis. 2. Height 5 feet 4 inches, weight 145 pounds, BMI is 25. 3. Vital Signs: Blood pressure 148/68, heart rate 112, respiratory rate 16, room air saturation 98%, temperature 98.3. 4. Pain intensity 6/10. [place] [address] PAIN MANAGEMENT CONSULTATION Name: KIERRA SHARP Room: [facility]#: [id number] Admission: 05/26/19 Attend Phys: Rizwan Velazquez MD Discharge: Date of : 47 Report #: [id number] 5. Fall history: The patient has not fallen, but does have some perceptions of weakness involving her right leg. 6. Blood thinner. The patient is on a blood thinning medication Plavix. 7. Hypertension. The patient is being treated for hypertension. 8. Opioids greater than 6 weeks. 9. Functional assessment low for opioid use. 10. Functional assessment tool. 11. Recreational drug use. The patient denies use of tobacco at this juncture. 12. Alcohol. The patient denies frequent use of alcoholic beverages. PHYSICAL EXAMINATION: GENERAL: The patient is a well-developed, well-nourished white female. Appears her stated age. She is alert and oriented x 3. Her affect is appropriate. Speech is somewhat choppy. She has some difficulty sometimes finding the appropriate word and slight amount of stuttering with her james. HEAD, EYES, EARS, NOSE, AND THROAT: The patient is wearing glasses. NECK: Without adenopathy or JVD. HEART: Regular rate. ABDOMEN: Nontender. Bowel sounds present. EXTREMITIES: Upper extremity muscle strength judged to be 4-/5 in the right hand and the patient has decreased barge master strength. She has some difficulty making of fist and squeezing her fist tight enough to have the fingertips touch the palm. The patient has somewhat kyphotic in the upper thoracic area without significant evidence of scoliosis. The patient has a well-healed scar in the lower portion of her back from previous surgery at the L4-L5 level. Lower extremity muscle strength judged to be 4+/5 for the major muscle groups in the lower extremity. The patient has some pain and discomfort in the right hip. Internal and external rotation of the right leg causes some increased pain in the hip as well as some pain in the groin area. IMPRESSION: 1. Stroke on 03/17/2019 with right-sided weakness and some effect on the speech. 2. Polyarthritis. 3. Increased back pain and sciatica after prolonged bedrest during her hospitalization from the stroke. 4. Rheumatoid arthritis. 5. Hypertension. 6. Diabetes. 7. History of ulcers. RECOMMENDATIONS: We discussed treatment options with the patient. At this juncture, we will have the patient try to increase her coordination with her hand. She has been given a script to go to a physical therapist for occupational therapy and training. She has also decided to undergo an injection in her right hip. It appears that there is most of her pain is radiating from [facility] [address] [place] [address] PAIN MANAGEMENT CONSULTATION Name: KIERRA SHARP Room: [facility]#: [id number] Admission: 05/26/19 Attend Phys: Rizwan Velazquez MD Discharge: Date of : 47 Report #: [id number] the hip socket itself. We will proceed with an injection with local anesthetic and steroid. After the patient stopped taking her Plavix for about 7 days. She will return to the Pain Clinic after the cessation of the Plavix. A script for Ultram for pain control, 120 tablets 1 p.o. t.i.d. 1 tablet a.m., one tablet midday and 2 tablets at bedtime have been written. We would like to thank you for letting us to participate in her care. We hope she continues to improve. <ELECTRONICALLY SIGNED> By: Rizwan Velazquez MD 06/17/19 0909 1402 1622N. Simón Velazquez MD /TYREE
== END ==
LOC: M.PC 04:48
DX: I63.9 Cerebral infarction, unspecified (principal); M13.0 Polyarthritis, unspecified; I10 Essential (primary) hypertension; E11.9 Type 2 diabetes mellitus without complications; M06.9 Rheumatoid arthritis, unspecified; Z88.0 Allergy status to penicillin; Z88.8 Allergy status to other drugs, medicaments and biological substances; Z79.899 Other long term (current) drug therapy

== ENCOUNTER → 2019-06-04 | Outpatient (CLI) | payer OTHER ==
--- NOTE | 2019-06-17 09:09 | PAINCON ---
[address] [address] PAIN MANAGEMENT CONSULTATION Name: KIERRA SHARP Room: [facility] BEREKET McgovernIam#: [id number] Admission: 06/04/19 Attend Phys: Rizwan Velazquez MD Discharge: Date of : 47 Report #: [id number] THIS REPORT FOR: //name// CC: Alex Velazquez DATE OF SERVICE: 06/04/2019 CHIEF COMPLAINT: Pain in the right hip. HISTORY: The patient is a 73-year-old female who has been followed in the pain clinic because of right hip pain. She had some pain in her right hand as well. The patient was provided a script to go to physical therapy regarding her right hand. I think helped by an occupational therapist might prove beneficial given that she is still having some weakness and difficulty using her hand since her stroke. The patient continues to have pain and discomfort involving the right leg and movement of the right leg and hip cause pain to radiate into the hip area. She has tried tramadol. She feels that this medication provided some benefit, but her pain still is quite problematic and rates it as a 7-8. She has some difficulty walking. States that when she walks down the steps, there is some weakness in her right leg. Feels that is giving way. She is continuing to have some problem selecting the words she would like to use. She states that she set off an insect balm in the house. There was a problem with fleas. She accidentally sprayed some into her face. She feels that that has been somewhat of a problem and that she is having some problems finding the correct word she would like to use. She has stopped taking her Plavix. She has returned to the pain clinic today with the hopes of undergoing an injection of the right hip. ALLERGIES: FLU VACCINE, PENICILLIN, AND NATHAN INHIBITORS. CURRENT MEDICATIONS: Tylenol Extra Strength, aspirin 325 mg, Lasix, glyburide, hydrocodone 5/325, omeprazole 20 mg, and potassium 10 mEq. PAIN CLINIC ASSESSMENT AND PQRS: 1. History of osteoarthritis. The patient has some osteoarthritic changes in her hand. She also has some problems with rheumatoid arthritis. 2. Height 5 feet 4 inches, weight 146 pounds, BMI is 25. 3. Vital signs: Blood pressure 147/53, heart rate 104, respiratory rate 16, room air saturation 97% and temperature is 98.1. 4. Pain intensity 7-8/10. 5. Fall history: The patient has not fallen in the last 3 months. Does have some perception of weakness in her right thigh. 6. Blood thinner. The patient is not on a blood thinning medication. She has stopped taking the Plavix and restarted after the injection. 7. History of hypertension. The patient is being treated for hypertension. 8. Opioids greater than 6 [place] [address] PAIN MANAGEMENT CONSULTATION Name: KIERRA SHARP Room: [facility] Rogers#: [id number] Admission: 06/04/19 Attend Phys: Rizwan Velazquez MD Discharge: Date of : 47 Report #: [id number] 9. Functional assessment tool, low for opioid use. 10. Functional assessment tool. 11. Recreational drug use. The patient denies use of recreational drugs. 12. Alcohol. The patient denies frequent use of alcoholic beverages. PHYSICAL EXAMINATION: GENERAL: The patient is a well-developed, well-nourished white female. Appears her stated age. She is alert and oriented x 3. She is having some difficulty with speech. It is intelligible, but somewhat choppy. She is having some difficulty finding the exact word she would like to use. HEENT: Normocephalic, atraumatic. Extraocular eye muscles intact. Sclerae nonicteric. Mucous membranes are moist. The patient is wearing glasses. NECK: Without adenopathy or JVD. HEART: Regular rate, somewhat tachypneic at 112. ABDOMEN: Nontender. Bowel sounds present. EXTREMITIES: Upper extremity muscle strength judged to be 4-/5 for the right upper extremity. 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 Has some difficulty making a tight fist. She is unable to touch her fingertips to her palm when she squeezes to make a fist. Has some kyphotic characteristics in her upper thoracic area without significant evidence of scoliosis. The patient has a well-healed scar in the lower portion of her back from previous surgery at the L4-L5 level. Lower extremity muscle strength judged to be 4+/5 for the major muscle groups. The patient has some pain and discomfort in the right hip. Inversion and eversion of the hip cause some increased pain in the hip area and into the groin with some pain that she states goes down into the lower portion of her buttocks area. IMPRESSION: 1. History of stroke, on 03/17/2019 with right-sided weakness and some effect on the speech. 2. Polyarteritis. 3. Increased back pain and sciatica after prolonged bed rest during her hospitalization from a stroke. 4. Rheumatoid arthritis. 5. Hypertension. 6. Diabetes. 7. History of ulcers. RECOMMENDATIONS: We discussed treatment options with the patient. At this juncture, she has returned to the pain clinic with the desire to undergo a right hip injection. Risks and benefits of the procedure were discussed. They include but are not limited to infection, worsening of pain, no improvement in pain, bleeding, nerve damage, muscle soreness and the patient elects to proceed. PROCEDURE NOTE: The patient was taken to the procedure area. She was then assisted in getting on the examination table. [place] [address] PAIN MANAGEMENT CONSULTATION Name: KIERRA SHARP Room: [facility]#: [id number] Admission: 06/04/19 Attend Phys: Rizwan Velazquez MD Discharge: Date of : 47 Report #: [id number] sterilely prepped with a Betadine solution. This was allowed to dry. Fluoroscopy using anterior, posterior as well as lateral viewing were implemented. A 25-gauge needle was then used to anesthetize the area over the right hip. After anesthetizing this area, a 20-gauge spinal needle was then advanced into the area of the hip socket/joint. Aspiration was negative. A total of 40 mg Depo-Medrol was injected. This was followed by 5 mL of 0.5% bupivacaine. The patient tolerated the procedure well. There were no complications. Her pain decreased to 0 at the time of discharge. She will follow up in the future as needed. We would like to thank you for letting us participate in her care. We hope she continues to improve. <ELECTRONICALLY SIGNED> By: Rizwan Velazquez MD 06/17/19 0909 1458 1723N. Simón Velazquez MD /petra
== END | disposition home or self-care (01) ==
LOC: M.PC 06:02
DX: M25.551 Pain in right hip (principal); M54.41 Lumbago with sciatica, right side; I10 Essential (primary) hypertension; E11.9 Type 2 diabetes mellitus without complications; M06.9 Rheumatoid arthritis, unspecified; M30.0 Polyarteritis nodosa; Z86.73 Personal history of transient ischemic attack (TIA), and cerebral infarction without residual deficits; Z98.890 Other specified postprocedural states; Z79.891 Long term (current) use of opiate analgesic; Z79.899 Other long term (current) drug therapy; Z88.0 Allergy status to penicillin; Z87.19 Personal history of other diseases of the digestive system; Z88.8 Allergy status to other drugs, medicaments and biological substances; Z79.82 Long term (current) use of aspirin

== ENCOUNTER → 2019-07-03 | Outpatient (CLI) | payer OTHER | LOC: M.RAD 09:49 | DX: M17.12 Unilateral primary osteoarthritis, left knee (principal); M85.88 Other specified disorders of bone density and structure, other site ==

== ENCOUNTER 2019-07-27 12:23 | Inpatient (IN) | payer OTHER ==
[~2019-07-27] VITALS: Ht 162.6 cm; Wt 63.4 kg
[~2019-07-27 12:23] MED LIST changes: -TYLENOL EX-STR500 M2 PO; +TYLENOL EXTRA500 MG PO
[2019-07-27 12:49] VITALS: BP 165/75
[2019-07-27 13:20] LABS: HEMATOCRIT 32.4 % (37.0-47.0); HEMOGLOBIN 10.2 gm/dL (12.0-15.0); MCH 22.1 pg (26.0-34.0); MCHC 31.7 g/dL (28.0-37.0); MCV 69.7 fL (80.0-100.0); MPV 7.9 fl. (7.2-11.1); NUCLEATED RBCS 0 /100WBC; PLATELET COUNT* 270 thou/uL (150-400); RBC 4.64 mil/uL (4.20-5.00); RDW-CV 19.9 % (10.5-14.5); WBC 5.2 thou/uL (4.0-11.0)
[2019-07-27 13:28] LABS: CALCIUM 8.8 mg/dL (8.5-10.1); CREATININE 0.5 mg/dL (0.6-1.3); POTASSIUM 3.7 mmol/L (3.5-5.1)
[2019-07-27 13:29] LABS: PROTIME 10.7 Seconds (9.20-11.50)
[2019-07-27 13:33] LABS: ALBUMIN 3.5 g/dL (3.4-5.0); TOTAL BILIRUBIN 0.3 mg/dL (<0.1-1.0); TOTAL PROTEIN 6.9 g/dL (6.4-8.2)
[2019-07-27 13:46] LABS: ABSOLUTE EOSINOPHILS 0.1 thou/uL (0.0-0.7); ABSOLUTE LYMPHOCYTES 1.9 thou/uL (0.8-5.3); ABSOLUTE MONOCYTES 0.5 thou/uL (0.0-1.2); ABSOLUTE NEUTROPHILS 2.7 thou/uL (1.6-8.1); ANISOCYTOSIS 2+; HYPOCHROMASIA 1+; PLATELET ESTIMATE ADEQUATE; POLYCHROMASIA Occasional
[2019-07-27 14:53] LABS: URINE BILIRUBIN NEGATIVE (Negative); URINE BLOOD NEGATIVE (Negative); URINE CLARITY CLEAR; URINE COLOR YELLOW; URINE GLUCOSE-RANDOM NEGATIVE (Negative); URINE KETONES NEGATIVE (Negative); URINE LEUKOCYTES-REFLEX NEGATIVE (Negative); URINE NITRITE-REFLEX NEGATIVE (Negative); URINE PROTEIN NEGATIVE (Negative); URINE SPECIFIC GRAVITY <= 1.005 (1.005-1.030); URINE UROBILINOGEN 0.2 E.U./dl (0.2-1.0)
[2019-07-27 19:50] VITALS: BP 130/68
[2019-07-27 20:14] VITALS: BP 124/61
[2019-07-27 20:45] VITALS: BP 130/68
[2019-07-28] VITALS: BP 143/83
[2019-07-28 04:00] VITALS: BP 136/48
[2019-07-28 06:11] LABS: ABSOLUTE EOSINOPHILS 0.1 thou/uL (0.0-0.7); ABSOLUTE LYMPHOCYTES 1.9 thou/uL (0.8-5.3); ABSOLUTE MONOCYTES 0.6 thou/uL (0.0-1.2); ABSOLUTE NEUTROPHILS 2.4 thou/uL (1.6-8.1); BASOPHILS 0.7 %; EOSINOPHILS 1.9 %; HEMATOCRIT 29.4 % (37.0-47.0); HEMOGLOBIN 9.4 gm/dL (12.0-15.0); LYMPHOCYTES 37.1 %; MCH 22.1 pg (26.0-34.0); MCHC 31.9 g/dL (28.0-37.0); MCV 69.4 fL (80.0-100.0); MONOCYTES 11.9 %; MPV 8.2 fl. (7.2-11.1); NUCLEATED RBCS 0 /100WBC; PLATELET COUNT* 229 thou/uL (150-400); POLYS 48.4 %; RBC 4.24 mil/uL (4.20-5.00); RDW-CV 19.5 % (10.5-14.5)
[2019-07-28 06:19] LABS: CHOLESTEROL 82 mg/dL (<200); HDL CHOLESTEROL 36 mg/dL (>40); LDL CHOLESTEROL 29 mg/dL (<100); TC:HDL 2.3 Ratio (Not establshd); TRIGLYCERIDE 88 mg/dL (<150); VLDL 18 mg/dL (<40)
[2019-07-28 06:22] LABS: ALBUMIN 2.9 g/dL (3.4-5.0); CREATININE 0.3 mg/dL (0.6-1.3); POTASSIUM 3.3 mmol/L (3.5-5.1); SERUM ASSESSMENT Clear; TOTAL BILIRUBIN 0.4 mg/dL (<0.1-1.0); TOTAL PROTEIN 5.8 g/dL (6.4-8.2)
[2019-07-28 07:12] LABS: GLYCOHEMOGLOBIN (HGB A1C) 6.6 % (4.8-5.6)
[2019-07-28 07:46] LABS: ESR (SEDRATE) 8 mm/hr (0-30)
[2019-07-28 08:00] VITALS: BP 125/39
[2019-07-28] MEDS ORDERED: CARVEDILOL12.5 MG PO (08:25)
--- NOTE | 2019-07-28 10:58 | EKG ---
[place] [address] ELECTROCARDIOGRAM REPORT Name: KIERRA SHARP Room: [address] ADM IN M.R.#: [id number] Admission: 07/27/19 Attend Phys: Calixto Ring MD Discharge: Date of : 47 Report #: [id number] THIS REPORT FOR: //name// [facility] ED Test Date: 2019-07-27 Test Time: 13:23:47 Pat Name: KIERRA SHARP Department: Room: [facility] Gender: F Penciller: YOSHI : 1945 Requested By: Vic Wells Order Number: [id number] MD: Jabier Combs Measurements Intervals [place] Rate: 91 P: 29 AL: 117 QRS: 7 QRSD: 91 T: 83 QT: 370 QTc: 456 Interpretive Statements Sinus rhythm Borderline short AL interval Minimal ST depression, lateral leads Borderline ST elevation, anterior leads Compared to ECG 03/12/2019 19:53:23 ST (T wave) deviation now present Sinus tachycardia no longer present Myocardial infarct finding no longer present Electronically Signed On 07-28-2019 10:58:39 [employer] by Jabier Combs [email or web address] <ELECTRONICALLY SIGNED> By: Jabeir Combs MD, FACC 07/28/19 1058 1323 1323 Jabier Combs MD, FAC /EPI
[2019-07-28 12:43] VITALS: BP 118/57
[2019-07-28 19:41] VITALS: BP 153/91
[2019-07-28 20:38] VITALS: BP 144/63
[2019-07-29] VITALS: BP 113/44
[2019-07-29 04:28] VITALS: BP 115/45
[2019-07-29 08:00] VITALS: BP 146/49
[2019-07-29 17:43] VITALS: BP 145/62
[2019-07-29 20:00] VITALS: BP 144/112
[2019-07-29 21:07] LABS: CALCIUM 9.6 mg/dL (8.5-10.1); CREATININE 0.4 mg/dL (0.6-1.3); MAGNESIUM 1.9 mg/dL (1.8-2.4); POTASSIUM 3.6 mmol/L (3.5-5.1)
[2019-07-30] VITALS: BP 135/60
[2019-07-30 04:00] VITALS: BP 126/45
[2019-07-30 08:00] VITALS: BP 133/48
[2019-07-30 12:00] VITALS: BP 129/34
[2019-07-30] MEDS ORDERED: FLECAINIDE ACET50 M1 PO (13:41)
[2019-07-30] MEDS ORDERED: ELIQUIS5 MG PO (13:43)
[2019-07-30 13:50] VITALS: BP 129/34
--- NOTE | 2019-07-30 15:51 | EKG ---
[place] [address] ELECTROCARDIOGRAM REPORT Name: KIERRA SHARP Room: [address] ADM IN M.R.#: [id number] Admission: 07/27/19 Attend Phys: Calixto Ring MD Discharge: Date of : 47 Report #: [id number] THIS REPORT FOR: //name// [facility] Test Date: 2019-07-29 Test Time: 20:21:16 Pat Name: KIERRA SHARP Department: Room: [address] Gender: F Training Facilitator: THEA : 1945 Requested By: Calixto Ring Order Number: [id number] Reading MD: Fermin Hoover Measurements Intervals [place] Rate: 190 P: 0 [place]: QRS: -11 QRSD: 90 T: 146 QT: 258 QTc: 459 Interpretive Statements Supraventricular tachycardia Probable LVH with secondary repol abnrm ST depression, probably rate related Baseline wander in lead(s) II,III,aVF Compared to ECG 07/27/2019 13:23:47 Sinus rhythm no longer present ST (T wave) deviation still present Electronically Signed On 07-30-2019 15:51:27 TRAILHEAD 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
--- NOTE | 2019-07-30 15:52 | EKG ---
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: THEA : 1945 Requested By: Calixto Ring Order Number: [id number] Reading MD: Fermin Hoover Measurements Intervals [place] Rate: 191 P: 0 [place]: QRS: -9 QRSD: 91 T: 144 QT: 258 QTc: 460 Interpretive Statements Supraventricular tachycardia Probable LVH with secondary repol abnrm Anterior Q waves, possibly due to LVH ST depression, probably rate related Compared to ECG 07/27/2019 13:23:47 Left ventricular hypertrophy now present Q waves now present Sinus rhythm no longer present ST (T wave) deviation still present Electronically Signed On 07-30-2019 15:52:00 CERTIFIED FIRST ASSISTANT by Fermin Hoover [email or web address] <ELECTRONICALLY SIGNED> By: Fermin Hoover MD, FACC 07/30/19 1552 21 21 Fermin Hoover MD, FAC /EPI
--- NOTE | 2019-07-30 15:54 | EKG ---
[place] [address] ELECTROCARDIOGRAM REPORT Name: KIERRA SHARP JOANN Room: [address] ADM IN M.R.#: [id number] Admission: 07/27/19 Attend Phys: Calixto Ring MD Discharge: Date of : 47 Report #: [id number] THIS REPORT FOR: //name// [facility] Test Date: 2019-07-29 Test Time: 21:02:52 Pat Name: KIERRA SHARP Department: Room: [address] Gender: F Radiology Transporter: [facility] : 1945 Requested By: Calixto Ring Order Number: [id number] Sonia MD: Fermin Hoover Measurements Intervals [place] Rate: 116 P: 17 [place]: 138 QRS: 7 QRSD: 90 T: 90 QT: 320 QTc: 445 Interpretive Statements Sinus tachycardia Minimal ST depression, anterolateral leads Compared to ECG 07/29/2019 svt is not longer noted Electronically Signed On 07-30-2019 15:54:36 LAW EXAMINER by Fermin Hoover [email or web address] <ELECTRONICALLY SIGNED> By: Fermni Hoover MD, [facility] 07/30/19 1554 01 01 Fermin Hoover MD, FAC /EPI
--- NOTE | 2019-07-31 13:36 | EEG ---
[address] [address] EEG STUDY REPORT Name: KIERRA SHARP Room: [address] IN M.R.#: [id number] Admission: 07/27/19 Attend Phys: Calixto Ring MD Discharge: 07/30/19 Date of : 47 Report #: [id number] THIS REPORT FOR: //name// CC: Ahlast Ring DATE OF SERVICE: 07/29/2019 This patient is being evaluated for altered mental status. EEG was done by placing the electrodes by standard 10-20 system of electrode placement. Both referential and sequential montages were used for recording. Background activity is asymmetrical. On the right side, it is about 8-9 Hz, but the left side, it is slow. Photic stimulation is unremarkable. The patient went to sleep and that is associated with bilateral slowing and vertex sharp waves. IMPRESSION: This is an abnormal EEG because it is asymmetrical. That may be consistent with the patient's history of stroke, but no epileptiform activity was noticed during this record. Thank you very much for this referral. <ELECTRONICALLY SIGNED> By: Sandro Luo MD 07/31/19 1336 190 14Paremanuel Luo MD /nt
--- NOTE | 2019-07-31 13:36 | CON ---
[address] [address] CONSULTATION Name: KIERRA SHARP Room: [address] IN M.R.#: [id number] Admission: 07/27/19 Attend Phys: Calixto Ring MD Discharge: 07/30/19 Date of : 47 Report #: [id number] THIS REPORT FOR: //name// CC: Alex Ring DATE OF SERVICE: 07/27/2019 HISTORY OF PRESENT ILLNESS: This is a 73-year-old female patient who was seen by me for a very unusual history. She said she is not feeling well for 2-3 weeks. She has speech difficulty. Family thinks it is worst. How long it is going on is not clear. It is definitely going on for several days. Her history is complicated. I had seen this patient in the past and she definitely had a stroke. Family declined rehab and went home. Now part of the time, she is by herself. She takes her medication by herself. It is not clear whether she is doing that properly or not. I am especially concerned with the pain medication. She does have a disease intracranially and she is on a combination of aspirin and Plavix. She is also on statin. REVIEW OF SYSTEMS: Positive for multiple problems they include prior laminectomy, history of osteo or rheumatoid arthritis, history of cerebrovascular accident, malignant hyperthermia, aortic stenosis, diastolic dysfunction, melanoma of the face long time ago, carpal tunnel syndrome, stapedectomy, hypertension, hysterectomy, tonsillectomy. This was her relevant 14-point review of system. PAST MEDICAL HISTORY: Positive for stroke and I had seen this patient for that in the past. FAMILY HISTORY: Negative for early age stroke. SOCIAL HISTORY: She has a very supportive family. She does not use any tobacco. PHYSICAL EXAMINATION: GENERAL: Her exam indicates she is alert. She is responsive. NEUROLOGIC: She can follow simple commands, but her speech is altered. She gets stuck on words. When I asked her what hospital she is in, she could not tell. When I asked her who the president is, she took a while, but finally able to figure the name out. She was unable to tell me what month it is. Cranial nerve examination IS 2-12. Neuromuscular examination as checked for strength, sensation, reflexes and tone is slightly asymmetrical, but that is actually better than the last time. There is no meningeal sign. There is no carotid bruit. I could not look at the patient's fundus. CARDIAC: Examination is positive [place] [address] CONSULTATION Name: ARONKIERRA DAVID Room: [address]#: [id number] Admission: 07/27/19 Attend Phys: Calixto Ring MD Discharge: 07/30/19 Date of : 47 Report #: [id number] LUNGS: No respiratory difficulty or rhonchi. EXTREMITIES: No edema, cyanosis or jaundice. VITAL SIGNS: Blood pressure is 141/63, respirations are 16, and pulse is 94. LABORATORY DATA: White count is 5.2 and GFR is 121. CT scan demonstrated old changes, but no new changes. IMPRESSION: Most likely, this patient is not taking her medications properly. That is most likely the etiology of the patient's altered mental status. However, she had strokes in the past and we would like to exclude any other pathology and I think it is reasonable to do an MRI and EEG, especially because she is on tramadol and that is a potentially epileptiform medication. We will await that workup and see if anything needs to be done differently. She may need a different living arrangement, but the patient has been very reluctant for that, but at least, the family should manage her medication by putting her on a pill box. They said they will do that. Thank you very much for this referral, and if you have any question, please feel free to contact me. <ELECTRONICALLY SIGNED> By: Sandro Luo MD 07/31/19 1336 1645 2316Sandro Luo MD /nt
== END 2019-07-30 16:30 | disposition home health service (06) | DRG 64 ==
LOC: M.ERS 12:23 → M.TBA-ER 14:51 → M.2W 14:51
PROVIDERS: Emergency Medicine Emergency Medical Services; Internal Medicine; ADMIT Internal Medicine
DX: I63.9 Cerebral infarction, unspecified (principal); G93.41 Metabolic encephalopathy; I47.1 Supraventricular tachycardia; E11.9 Type 2 diabetes mellitus without complications; I10 Essential (primary) hypertension; M06.9 Rheumatoid arthritis, unspecified; K21.9 Gastro-esophageal reflux disease without esophagitis; G89.29 Other chronic pain; R47.01 Aphasia; R47.1 Dysarthria and anarthria; E78.5 Hyperlipidemia, unspecified; I35.0 Nonrheumatic aortic (valve) stenosis; Z88.0 Allergy status to penicillin; Z88.8 Allergy status to other drugs, medicaments and biological substances; Z79.899 Other long term (current) drug therapy; Z79.82 Long term (current) use of aspirin; Z90.710 Acquired absence of both cervix and uterus; Z85.820 Personal history of malignant melanoma of skin; Z84.89 Family history of other specified conditions

== ENCOUNTER 2020-02-10 17:03 | Inpatient (IN) | payer OTHER ==
[~2020-02-10] VITALS: Ht 167.6 cm; Wt 76.2 kg
[~2020-02-10 17:03] MED LIST changes: +CARVEDILOL12.5 MG PO; +ELIQUIS5 MG PO; +FLECAINIDE ACET50 M1 PO
[2020-02-10 17:09] VITALS: BP 132/68
[2020-02-10 17:26] LABS: ABSOLUTE LYMPHOCYTES 1.9 thou/uL (0.8-5.3); ABSOLUTE MONOCYTES 2.4 thou/uL (0.0-1.2); ABSOLUTE NEUTROPHILS 12.2 thou/uL (1.6-8.1); BASOPHILS 0.2 %; HEMATOCRIT 28.6 % (37.0-47.0); HEMOGLOBIN 8.7 gm/dL (12.0-15.0); LYMPHOCYTES 11.6 %; MCH 21.3 pg (26.0-34.0); MCHC 30.6 g/dL (28.0-37.0); MCV 69.6 fL (80.0-100.0); MONOCYTES 14.5 %; NUCLEATED RBCS 0 /100WBC; PLATELET COUNT* 313 thou/uL (150-400); POLYS 73.7 %; RDW-CV 20.8 % (10.5-14.5); WBC 16.6 thou/uL (4.0-11.0)
[2020-02-10 17:40] LABS: APTT 27.3 Seconds (25.0-31.3); CALCIUM 8.5 mg/dL (8.5-10.1); CREATININE 0.9 mg/dL (0.6-1.3); INR 1.8; POTASSIUM 4.1 mmol/L (3.5-5.1); PROTIME 17.6 Seconds (9.20-11.50)
[2020-02-10 17:53] LABS: ALBUMIN 3.1 g/dL (3.4-5.0); CK-MB MASS 1.5 ng/mL (<0.5-3.6); MAGNESIUM 2.1 mg/dL (1.8-2.4); TOTAL BILIRUBIN 2.2 mg/dL (<0.1-1.0); TOTAL PROTEIN 6.4 g/dL (6.4-8.2)
[2020-02-10 18:40] LABS: POLYCHROMASIA 1+
[2020-02-10 18:41] LABS: ANISOCYTOSIS 2+; LARGE PLATELETS OCCASIONAL; OVALOCYTES Occasional; PLATELET ESTIMATE ADEQUATE
[2020-02-10] MEDS ORDERED: HYDROCHLOROTHIA25 M2 PO (18:41)
[2020-02-10] MEDS ORDERED: COZAAR 25 MG TA25 M1 PO (18:41)
[2020-02-10 18:42] LABS: HYPOCHROMASIA 1+; MICROCYTES 2+
--- NOTE | 2020-02-10 19:52 | NUR ---
AND ARLYN SWANSON AT BEDSIDE CRASH CART AND EKG MACHINE N PT. ADENOSINE PUSHED CONTINUOS EKG CAPTURED NO CHANGES NOTED. HR 152
[2020-02-10 20:20] LABS: BE -5.3 mmol/L (-2 to +3); PCO2 28.8 mmHg (35.0-45.0); PO2 118.8 mmHg (75.0-100.0); pH 7.421 (7.340-7.450)
[2020-02-10 23:30] VITALS: BP 128/68
[2020-02-11] VITALS (11 sets, daily range): BP systolic 117–138; BP diastolic 61–73
--- NOTE | 2020-02-11 08:00 | NUR ---
ASSUMED CARE OF PT FROM NIGHT NURSE. PT IS CONFUSED AND SPEECH IS DISORGANIZED. PT DID PICK AT RIGHT AC SL AND THIS WAS REPLACED. SHE WAS EDUCATED ON POC, FALL SAFETY AND USING THE CALL LIGHT FOR ASSISTANCE. BED IN LOWEST POSITION AND CALL LIGHT IN REACH. BED ALARM IS ON , WILL CONTINUE TO MONITOR.
--- NOTE | 2020-02-11 10:17 | EKG ---
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 : 1945 Requested By: Hadley Houston Order Number: [id number] MD: King Morales Measurements Intervals [place] Rate: 162 P: 33 [place]: 100 QRS: 5 QRSD: 80 T: -55 QT: 268 QTc: 441 Interpretive Statements Supraventricular tachycardia Probable anterior infarct, age indeterminate Compared to ECG 07/29/2019 21:02:52 Sinus tachycardia no longer present Electronically Signed On 02-11-2020 10:16:37 CDT by King Morales [email or web address] <ELECTRONICALLY SIGNED> By: King Morales MD, FACC 02/11/20 1016 1709 1709 King Morales MD, [facility] /EPI
--- NOTE | 2020-02-11 10:20 | EKG ---
[place] [address] ELECTROCARDIOGRAM REPORT Name: ARONKIERRA DAVID Room: [address] ADM IN M.R.#: [id number] Admission: 02/10/20 Attend Phys: Meche Marie, Discharge: Date of : 47 Date of Service: 02/10/202319 Report #: [id number] THIS REPORT FOR: //name// [facility] Test Date: 2020-02-10 Test Time: 23:20:28 Pat Name: KIERRA SHARP Department: Room: [address] Gender: F Machine Crater: UNKNOWN : 1945 Requested By: Meche Marie Order Number: [id number] Sonia MD: King Morales Measurements Intervals [place] Rate: 155 P: 98 [place]: 86 QRS: 3 QRSD: 109 T: -80 QT: 338 QTc: 543 Interpretive Statements Supraventricular tachycardia Probable anteroseptal infarct Baseline wander in lead(s) I,II,aVR,V1 Electronically Signed On 02-11-2020 10:19:55 CDT by King Morales [email or web address] <ELECTRONICALLY SIGNED> By: King Morales MD, FAC 02/11/20 1019 2320 2320 King Morales MD, [facility] /EPI
[2020-02-11 12:21] LABS: ABSOLUTE BASOPHILS 0.1 thou/uL (0.0-0.2); ABSOLUTE LYMPHOCYTES 1.3 thou/uL (0.8-5.3); ABSOLUTE MONOCYTES 2.1 thou/uL (0.0-1.2); BASOPHILS 0.6 %; EOSINOPHILS 0.1 %; HEMOGLOBIN 8.3 gm/dL (12.0-15.0); LYMPHOCYTES 11.2 %; MCH 21.3 pg (26.0-34.0); MCHC 29.4 g/dL (28.0-37.0); MCV 72.2 fL (80.0-100.0); MONOCYTES 18.1 %; MPV 9.5 fl. (7.2-11.1); NUCLEATED RBCS 1 /100WBC; PLATELET COUNT* 240 thou/uL (150-400); RBC 3.88 mil/uL (4.20-5.00); RDW-CV 20.9 % (10.5-14.5); WBC 11.5 thou/uL (4.0-11.0)
[2020-02-11 12:29] LABS: CREATININE 0.7 mg/dL (0.6-1.3); TOTAL BILIRUBIN 1.9 mg/dL (<0.1-1.0); TOTAL PROTEIN 5.5 g/dL (6.4-8.2)
[2020-02-11 13:06] LABS: HYPOCHROMASIA 2+; PLATELET ESTIMATE ADEQUATE
[2020-02-11 13:07] LABS: MICROCYTES 2+; OVALOCYTES Occasional
[2020-02-11 13:08] LABS: MACROCYTES Occasional
[2020-02-11 13:10] LABS: BURR CELLS 1+; POLYCHROMASIA Occasional
[2020-02-11 13:11] LABS: ANISOCYTOSIS 3+
--- NOTE | 2020-02-11 15:53 | EKG ---
[place] [address] ELECTROCARDIOGRAM REPORT Name: ARONKIERRA DAVID Room: [address] ADM IN M.R.#: [id number] Admission: 02/10/20 Attend Phys: Meche Marie, Discharge: Date of : 47 Date of Service: 02/10/201945 Report #: [id number] THIS REPORT FOR: //name// [facility] ED Test Date: 2020-02-10 Test Time: 19:46:09 Pat Name: KIERRA SHARP Department: Room: [address] Gender: F Semi Driver: UNKNOWN : 1945 Requested By: Meche Marie Order Number: [id number] Reading MD: King Morales Measurements Intervals [place] Rate: 153 P: -15 ID: 141 QRS: 7 QRSD: 97 T: -66 QT: 281 QTc: 449 Interpretive Statements Supraventricular tachycardia Abnormal R-wave progression, late transition Repolarization abnormality, prob rate related Baseline wander in lead(s) II,aVR Compared to ECG 02/10/2020 17:09:00 no change Electronically Signed On 02-11-2020 15:52:12 CDT by King Morales [email or web address] <ELECTRONICALLY SIGNED> By: King Morales MD, FAC 02/11/20 1552 45 45 King Morales MD, FAC /EPI
--- NOTE | 2020-02-11 15:54 | EKG ---
[place] [address] ELECTROCARDIOGRAM REPORT Name: SHARPKIERRA JOANN Room: [address] ADM IN M.R.#: [id number] Admission: 02/10/20 Attend Phys: Meche Marie, Discharge: Date of : 47 Date of Service: 02/10/201953 Report #: [id number] THIS REPORT FOR: //name// [facility] ED Test Date: 2020-02-10 Test Time: 19:54:46 Pat Name: KIERRA SHARP Department: Room: [address] Gender: F Cloud Developer: UNKNOWN : 1945 Requested By: Meche Marie Order Number: [id number] Reading MD: King Morales Measurements Intervals [place] Rate: 153 P: 105 [place]: 43 QRS: 1 QRSD: 134 T: -63 QT: 290 QTc: 463 Interpretive Statements supraventricular tachycardia poor r wave progression Nonspecific intraventricular conduction delay Compared to ECG 02/10/2020 17:09:00 no change Electronically Signed On 02-11-2020 15:53:08 CDT by King Morales [email or web address] <ELECTRONICALLY SIGNED> By: King Morales MD, FAC 02/11/20 1553 53 53 King Morales MD, [facility] /EPI
--- NOTE | 2020-02-11 16:58 | CON ---
[address] [address] CONSULTATION Name: KIERRA SHARP Room: [address] ADM IN M.R.#: [id number] Admission: 02/10/20 Attend Phys: Meche Marie MD Discharge: Date of : 47 Report #: [id number] THIS REPORT FOR: //name// cc: Alex Lainez Ahmad W. DO ~ THIS REPORT FOR: //name// CC: Alex Marie DATE OF SERVICE: 02/11/2020 CARDIOLOGY CONSULTATION HISTORY OF PRESENT ILLNESS: The patient is a 74-year-old white female, who I was asked to see in the hospital today after she was noted to have a narrow complex tachycardia. There are no family members available at this time. The patient is confused at this time. She was actually seen by my partner, Dr. Combs, back in 2009 for chest pain. She has a long history of diabetes. He performed a cardiac catheterization in 2009 that showed normal coronary arteries and normal left ventricular function. She has had several hospitalizations since that time. She was discharged in 02/2019 with a stroke. She had right arm weakness. She has a long history of arthritis with multiple visits to the [facility] in the past. She was actually seen by my nurse practitioner, Vivian Callahan, last July. She was found to have a recurrent stroke last July. She was brought to the Emergency Room yesterday by family members complaining of abdominal pain, diarrhea, nausea, vomiting and poor appetite. She was noted to be in a narrow complex tachycardia. She was started on intravenous diltiazem, but the tachycardia persisted. I was asked to see her for further evaluation and treatment. PAST MEDICAL HISTORY: She has had previous hysterectomy, tonsillectomy, carpal tunnel surgery, removal of melanoma, back surgery, previous stroke, hypertension, mild aortic stenosis. MEDICATIONS: On admission included tramadol, flecainide, Eliquis, Lipitor, Protonix, glimepiride, carvedilol, losartan, hydrochlorothiazide. ALLERGIES: SHE HAS ALLERGY TO CODEINE AND PENICILLIN. SOCIAL HISTORY: No smoking or alcohol abuse. PHYSICAL EXAMINATION: GENERAL: Revealed an elderly female lying in bed. She appeared in no distress. VITAL SIGNS: Blood pressure 130/70; pulse of 140 and regular; she was afebrile; [place] [address] CONSULTATION Name: KIERRA SHARP Room: [address]#: [id number] Admission: 02/10/20 Attend Phys: Meche Marie MD Discharge: Date of : 47 Report #: [id number] HEENT: She is anicteric. Conjunctivae are pink. Mucous membranes appear dry. NECK: Veins do not appear distended. CHEST: Clear to auscultation. CARDIAC: Regular, tachycardia. ABDOMEN: Soft. EXTREMITIES: Had no edema. SKIN: Cool and dry. RADIOLOGICAL DATA: Her ECG on admission showed a narrow complex tachycardia, suggestive of paroxysmal supraventricular tachycardia; nonspecific T-wave changes. Her last echocardiogram a year ago in 02/2019 showed ejection fraction of 60%; there was evidence of mild aortic stenosis with a peak gradient across the aortic valve of 33 mmHg. Her x-rays, she had a portable chest x-ray that showed cardiomegaly, mild vascular congestion, small effusions. She had a CT scan of the abdomen because of abdominal pain that showed no evidence of bowel obstruction. CT scan of the chest using a PE protocol showed no pulmonary embolus, small effusions. CT scan of the head without contrast showed evidence of previous infarction, no acute abnormalities. Previous MRA of the carotids done last summer showed no high-grade stenosis. LABORATORY DATA: Revealed sodium 132, potassium 4.1, creatinine 0.9, glucose 263. SGOT 214, SGPT 297, bilirubin 2.2, alkaline phosphate is 119. Troponin 0.06. BNP 6308. Her white blood cell count 16.6, hematocrit 28.6, which is unchanged from a year ago. IMPRESSION AND RECOMMENDATIONS: 1. Paroxysmal supraventricular tachycardia. The patient previously on flecainide. Unresponsive to adenosine. Suspect cardioversion. I would recommend starting amiodarone. 2. Previous stroke. The patient on Eliquis. 3. Hypertension. 4. Diabetes. 5. Anemia. No history of bleeding. <ELECTRONICALLY SIGNED> By: King Morales MD, [facility] 02/11/20 1658 0804 1042David Enma Morales MD, FAC /nt
--- NOTE | 2020-02-11 16:58 | CARD ---
[address] [address] CARDIAC CATH REPORT Name: KIERRA SHARP Room: [address] IN M.R.#: [id number] Admission: 02/10/20 Attend Phys: Meche Marie MD Discharge: Date of : 47 Report #: [id number] THIS REPORT FOR: //name// cc: Alex Lainez Ahmad W. DO ~ CC: Alex Marie DATE OF SERVICE: 02/11/2020 TITLE OF PROCEDURE: Direct current cardioversion. INDICATIONS: Direct current cardioversion was requested in this patient with a history of atrial fibrillation. The patient had been on Eliquis at the time procedure. PROCEDURE: Informed consent was discussed indications, alternatives, risks of the procedure with the patient and she agreed to proceed. The procedure was also discussed with the patient's son by telephone after he was called by the nurse. The patient was brought to the cardiac catheterization lab holding area in a fasting state. Hands free patches were applied in anterior and posterior location. Moderate sedation was accomplished by administering a Versed 2 mg and fentanyl 25 mg intravenously in divided doses. After achieving moderate sedation, the patient was cardioverted from what appeared to represent atrial flutter to normal sinus rhythm. The patient tolerated the procedure well. IMPRESSION: Successful direct current cardioversion of atrial flutter to normal sinus rhythm. <ELECTRONICALLY SIGNED> By: King Morales MD, [facility] 02/11/20 1658 1242 1419David Enma Morales MD, [facility] /nt
--- NOTE | 2020-02-11 17:15 | NUR ---
SPOKE WITH PT. SHE WAS ALERT. HAS SPEECH DIFFICULTY. HARD TO UNDERSTAND AT TIMES. CM CALLED SON,BEAU TO CONFIRM HER ANSWERS AND THEY WERE APPROPRIATE. SHE LIVES WITH BEAU AND HIS GIRLFRIEND. HAS MOTHER IN LAW QUARTERS BUT SHE HAS FREE REIGN OF THE HOUSE DURING THE DAY WHILE THEY ARE AT WORK. SHE IS INDEPENDENT. CAN FIX HER SELF BREAKFAST AND LUNCH. IS ABLE TO BE LEFT ALONE,SAFELY. BEAU FIXES SUPPER. SHE BATHES AND DRESSES BY HERSELF. HAS HAD [facility] IN THE PAST FOR ST AND PT. NO DME EXCEPT FOR SHOWER CHAIR. CM WILL FOLLOW.
[2020-02-12] VITALS: BP 99/59
[2020-02-12 04:00] VITALS: BP 107/55
[2020-02-12 05:34] LABS: ABSOLUTE LYMPHOCYTES 1.8 thou/uL (0.8-5.3); ABSOLUTE MONOCYTES 1.7 thou/uL (0.0-1.2); ABSOLUTE NEUTROPHILS 8.2 thou/uL (1.6-8.1); BASOPHILS 0.2 %; EOSINOPHILS 0.1 %; HEMATOCRIT 25.4 % (37.0-47.0); HEMOGLOBIN 7.6 gm/dL (12.0-15.0); LYMPHOCYTES 15.6 %; MCH 21.1 pg (26.0-34.0); MCHC 29.9 g/dL (28.0-37.0); MCV 70.8 fL (80.0-100.0); MONOCYTES 14.2 %; MPV 8.6 fl. (7.2-11.1); NUCLEATED RBCS 0 /100WBC; PLATELET COUNT* 179 thou/uL (150-400); POLYS 69.9 %; RBC 3.58 mil/uL (4.20-5.00); WBC 11.7 thou/uL (4.0-11.0)
--- NOTE | 2020-02-12 05:41 | NUR ---
PATIENT PROGRESSING TOWARDS GOALS: PATIENT IS MORE ALERT AND SPEECH MORE INTELLIGLE, ALTHOUGH PATIENT REMAINS WITH EXPRESSIVE APHASIA. PATIENT DENIES PAIN AND DISCOMFORT THROUGHOUT SHIFT. HR CONTROLLED <120 MAJORITY OF SHIFT, HAD ONE SHORT EPISODE OF SVT RESOLVED WITHOUT INTERVENTION. CALL LIGHT WITHIN REACH
[2020-02-12 05:51] LABS: ALBUMIN 2.3 g/dL (3.4-5.0); CREATININE 0.7 mg/dL (0.6-1.3); POTASSIUM 3.5 mmol/L (3.5-5.1); TOTAL BILIRUBIN 1.3 mg/dL (<0.1-1.0)
[2020-02-12 07:29] LABS: PLATELET ESTIMATE ADEQUATE
[2020-02-12 07:30] LABS: ANISOCYTOSIS 2+; HYPOCHROMASIA 2+; MICROCYTES 2+; OVALOCYTES 1+; POIKILOCYTOSIS 1+
--- NOTE | 2020-02-12 10:26 | EKG ---
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: : 1945 Requested By: King Morales Order Number: [id number] Sonia MD: King Morales Measurements Intervals [place] Rate: 102 P: 58 [place]: 144 QRS: 5 QRSD: 97 T: 176 QT: 386 QTc: 503 Interpretive Statements Sinus tachycardia poor r wave progression Low voltage, extremity leads Nonspecific T abnormalities, lateral leads Prolonged QT interval Compared to ECG 02/10/2020 23:20:28 Low QRS voltage now present Prolonged QT interval now present Supraventricular tachycardia no longer present Electronically Signed On 02-12-2020 10:25:15 CDT by King Morales [email or web address] <ELECTRONICALLY SIGNED> By: King Morales MD, [facility] 02/12/20 1025 King Morales MD, FAC /EPI
[2020-02-12 13:22] VITALS: BP 96/42
[2020-02-12 17:39] VITALS: BP 120/73
--- NOTE | 2020-02-12 18:30 | NUR ---
RECEIVED REPORT AND PT. ARRIVED FROM ER AT APPROX. 1610. PT. IS A/OX4, VSS, MONITOR PLACED TRACING SR. PT. DENIES CURRENT PAIN/NAUSEA/SOB. FULL ASSESSMENT AND ADMISSION PROCESS COMPLETED, REFER TO CHARTING. PT. DAUGHTER AT BEDSIDE AND REPORTS THAT HER MOTHER WAS SLURRING HER WORDS THIS MORNING LIKE SHE HAD "A FAT TONGUE". CURRENTLY PT. AND DAUGHTER BOTH AGREE PT. IS BACK TO BASELINE. NIH 0. PT. ORIENTED TO ROOM/PROCEDURE. CALL LIGHT IN REACH, WILL CONTINUE WITH PLAN OF CARE.
[2020-02-12 19:40] VITALS: BP 118/49
[2020-02-13] VITALS: BP 91/52
[2020-02-13 04:00] VITALS: BP 100/52
--- NOTE | 2020-02-13 05:49 | NUR ---
PATIENT PROGRESSING TOWARDS GOALS: NO N/V THIS SHIFT. PATIENT HAD ONE INCONTINENT EPISODE OF DIARRHEA, IN WHICH PATIENT GOT VERY FRUSTRATED THAT SHE COULD NOT CONTROL HER BOWELS. REASSURED PATIENT AND PROVIDED EILEEN CARE. DENIES PAIN AND DISCOMFORT. PATIENT NPO THIS MORNING FOR ABDOMINAL ULTRASOUND. MOUTH SWABS PROVIDED. CARDIAC RHYTHM REMAINS SR/ST, NO EPISODES OF SVT NOTED. CALL LIGHT WITHIN REACH
[2020-02-13 05:51] LABS: ABSOLUTE LYMPHOCYTES 1.3 thou/uL (0.8-5.3); ABSOLUTE MONOCYTES 1.4 thou/uL (0.0-1.2); BASOPHILS 0.4 %; EOSINOPHILS 0.2 %; HEMATOCRIT 26.1 % (37.0-47.0); HEMOGLOBIN 8.1 gm/dL (12.0-15.0); LYMPHOCYTES 13.6 %; MCH 21.8 pg (26.0-34.0); MCHC 31.1 g/dL (28.0-37.0); MCV 69.9 fL (80.0-100.0); MONOCYTES 14.1 %; MPV 8.6 fl. (7.2-11.1); NUCLEATED RBCS 0 /100WBC; PLATELET COUNT* 171 thou/uL (150-400); POLYS 71.7 %; RBC 3.73 mil/uL (4.20-5.00); RDW-CV 20.8 % (10.5-14.5); WBC 9.8 thou/uL (4.0-11.0)
[2020-02-13 06:02] LABS: ALBUMIN 2.3 g/dL (3.4-5.0); CALCIUM 7.8 mg/dL (8.5-10.1); CREATININE 0.6 mg/dL (0.6-1.3); POTASSIUM 3.1 mmol/L (3.5-5.1); TOTAL PROTEIN 4.9 g/dL (6.4-8.2)
[2020-02-13 07:04] LABS: PLATELET ESTIMATE ADEQUATE
[2020-02-13 07:51] LABS: ESR (SEDRATE) 9 mm/hr (0-30)
[2020-02-13 08:35] VITALS: BP 120/47
[2020-02-13 12:00] VITALS: BP 106/52
[2020-02-13 15:48] VITALS: BP 114/63
--- NOTE | 2020-02-13 19:44 | NUR ---
ASSUMED PT CARE AT 0730, FULL ASSESSMENT DONE CHARTED. PT A/O X4, IS QAWALANGIN AND HAS EXPRESSIVE APHASIA. PATIENT SR ON THE HEART MONITOR. UP WITH 1 ASSIST, TO RECLINER TODAY. SHE HAD 2 EPISODES OF LOOSE WATERY STOOL THIS EVENING AND WAS UPSET BY THIS. BOWEL PREP STARTED BUT SHE WAS UNABLE TO DRINK ALL MAG CITRATE. THIS WAS COMMUNICATED TO DR YEPEZ. PATIENT CALLS APPROPRIALTY FOR NEEDS. FALL PRECAUTIONS IN PLACE. REPORT GIVEN TO NADEEM LÓPEZ.
[2020-02-13 20:00] VITALS: BP 133/58
[2020-02-14] VITALS: BP 115/65
[2020-02-14 00:57] LABS: URINE BILIRUBIN NEGATIVE (Negative); URINE BLOOD TRACE (Negative); URINE CLARITY CLEAR; URINE COLOR YELLOW; URINE GLUCOSE-RANDOM NEGATIVE (Negative); URINE KETONES NEGATIVE (Negative); URINE LEUKOCYTES NEGATIVE (Negative); URINE NITRITE NEGATIVE (Negative); URINE PROTEIN NEGATIVE (Negative); URINE SPECIFIC GRAVITY <= 1.005 (1.005-1.030); URINE UROBILINOGEN 0.2 E.U./dl (0.2-1.0)
[2020-02-14 03:06] LABS: HEPATITIS B SURFACE AG Negative (Negative)
--- NOTE | 2020-02-14 03:06 | NUR ---
PT ALERT ORIENTATION IS DIFFICULT TO TELL. PT WITH SOME INAPPROPRIATE BEHAVIOUR. WHEN ATTEMPTING TO GIVE INSULIN EXPLAINED WHAT I WAS DOING. PT GRABED HAND WHEN GIVING INSULIN. EXPRESIVE APHASIA. ABLE TO UNDERSTAND WHAT PT WANTS WITH MANY QUESTIONS BACK AND FORTH. TELEMETRY SHOWS SR. TURN Q 2 HRS. ISIDRO WITH YELLOW. LIQUID STOOLS. WCTM
[2020-02-14 04:00] VITALS: BP 129/60
[2020-02-14 06:00] LABS: ABSOLUTE BASOPHILS 0.1 thou/uL (0.0-0.2); ABSOLUTE LYMPHOCYTES 1.2 thou/uL (0.8-5.3); ABSOLUTE MONOCYTES 1.3 thou/uL (0.0-1.2); ABSOLUTE NEUTROPHILS 5.9 thou/uL (1.6-8.1); BASOPHILS 0.7 %; EOSINOPHILS 0.2 %; HEMATOCRIT 26.2 % (37.0-47.0); LYMPHOCYTES 14.5 %; MCH 21.4 pg (26.0-34.0); MCHC 30.6 g/dL (28.0-37.0); MCV 69.8 fL (80.0-100.0); MONOCYTES 15.3 %; MPV 8.6 fl. (7.2-11.1); NUCLEATED RBCS 0 /100WBC; PLATELET COUNT* 166 thou/uL (150-400); POLYS 69.3 %; RBC 3.76 mil/uL (4.20-5.00); RDW-CV 20.6 % (10.5-14.5); WBC 8.5 thou/uL (4.0-11.0)
[2020-02-14 06:25] LABS: ALBUMIN 2.4 g/dL (3.4-5.0); CALCIUM 7.9 mg/dL (8.5-10.1); CREATININE 0.4 mg/dL (0.6-1.3); POTASSIUM 3.3 mmol/L (3.5-5.1); TOTAL BILIRUBIN 0.9 mg/dL (<0.1-1.0); TOTAL PROTEIN 5.1 g/dL (6.4-8.2)
[2020-02-14 07:46] LABS: PLATELET ESTIMATE ADEQUATE
[2020-02-14 07:47] LABS: OVALOCYTES 1+; TEARDROPS Occasional
[2020-02-14 07:48] LABS: ANISOCYTOSIS 2+; MICROCYTES 3+
[2020-02-14 07:49] LABS: HYPOCHROMASIA 1+
[2020-02-14 08:30] VITALS: BP 121/48
[2020-02-14 13:47] VITALS: BP 118/48
[2020-02-14 17:34] VITALS: BP 120/48
[2020-02-14 20:00] VITALS: BP 135/71
--- NOTE | 2020-02-14 20:12 | NUR ---
ASSUMED PT CARE AT 0730, FULL ASSESSMENT DONE CHARTED. PT A/O X4, FORGETFUL AT TIMES, HAS EXPRESSIVE EPHAGIA MAKING IT HARD TO COMMUNITCATE, WHITE BOARD USED. PT FRUSTRAIATED WITH HAVING SO MANY LOOSE STOOLS. SHE IS ON CLEAR LIQUID DIET AND DOES NOT EAT MUCH. IS DRINKING WATER. ISIDRO IN PLACE DRAINING YELLOW URNINE. EILEEN AREA RED FROM ALL THE STOOLS. BARRIER CREAM APPLIED. RIGHT ARM 2+ EDEMA THIS AFTERNOON, IV REMOVED, NEW IV STARTED IN LEFT AC. VSS, SR ON THE MONITOR. FALL PRECAUTONS IN PLACE, PT USES CALL LIGHT AT TIMES. ROOM ACROSS FROM THE NURSES STATION, CHECKED ON FREQUENTLY. REPORT GIVEN TO NADEEM LÓPEZ.
[2020-02-15 00:11] VITALS: BP 125/57
--- NOTE | 2020-02-15 02:15 | NUR ---
PT ALERT ORIENTED TO SELF AND WHAT SHE WANTS. EXPRESIVE APHASIA. LIQUID STOOL BROWN. NPO AT MN. FOELY WITH CLEAR YELLOW. TELEMETRY SHOWS SR.
[2020-02-15 04:00] VITALS: BP 132/63
[2020-02-15 05:16] LABS: ABSOLUTE LYMPHOCYTES 1.2 thou/uL (0.8-5.3); ABSOLUTE MONOCYTES 1.2 thou/uL (0.0-1.2); ABSOLUTE NEUTROPHILS 5.2 thou/uL (1.6-8.1); BASOPHILS 0.5 %; EOSINOPHILS 0.3 %; HEMATOCRIT 25.3 % (37.0-47.0); HEMOGLOBIN 7.9 gm/dL (12.0-15.0); LYMPHOCYTES 15.9 %; MCH 21.6 pg (26.0-34.0); MCHC 31.1 g/dL (28.0-37.0); MCV 69.3 fL (80.0-100.0); MONOCYTES 15.4 %; MPV 8.7 fl. (7.2-11.1); NUCLEATED RBCS 0 /100WBC; PLATELET COUNT* 163 thou/uL (150-400); POLYS 67.9 %; RBC 3.65 mil/uL (4.20-5.00); RDW-CV 20.8 % (10.5-14.5); WBC 7.6 thou/uL (4.0-11.0)
[2020-02-15 05:32] LABS: ALBUMIN 2.3 g/dL (3.4-5.0); CREATININE 0.4 mg/dL (0.6-1.3); POTASSIUM 3.3 mmol/L (3.5-5.1); TOTAL PROTEIN 4.8 g/dL (6.4-8.2)
[2020-02-15 06:48] LABS: ANISOCYTOSIS 2+; HYPOCHROMASIA 2+; MICROCYTES 3+
[2020-02-15 06:49] LABS: PLATELET ESTIMATE ADEQUATE
[2020-02-15 08:00] VITALS: BP 150/67
[2020-02-15 11:30] VITALS: BP 129/53
--- NOTE | 2020-02-15 15:42 | EKG ---
[place] [address] ELECTROCARDIOGRAM REPORT Name: KIERRA SHARP Room: [address] ADM IN M.R.#: [id number] Admission: 02/10/20 Attend Phys: Meche Marie, Discharge: Date of : 47 Date of Service: 02/15/20 1410 Report #: [id number] THIS REPORT FOR: //name// [facility] Test Date: 2020-02-15 Test Time: 14:10:26 Pat Name: KIERRA SHARP Department: Room: [address] Gender: F Measurer Machine: : 1945 Requested By: Jacques Toth Order Number: [id number] Sonia MD: Fermin Hoover Measurements Intervals [place] Rate: 87 P: 10 WV: 173 QRS: 3 QRSD: 111 T: -25 QT: 394 QTc: 474 Interpretive Statements Sinus rhythm Probable left atrial enlargement Anterior infarct, old Compared to ECG 02/12/2020 08:28:39 Myocardial infarct finding now present Sinus tachycardia no longer present T-wave abnormality no longer present Prolonged QT interval no longer present Electronically Signed On 02-15-2020 15:41:52 CDT by Fermin Hoover [email or web address] <ELECTRONICALLY SIGNED> By: Fermin Hoover MD, [facility] 02/15/20 1541 1410 1410 Fermin Hoover MD, [facility] /EPI
--- NOTE | 2020-02-15 15:52 | NUR ---
PT.WAS OFF THE FLOOR THIS AFTERNOON FOR EGD AND COLONOSCOPY. WILL F/U AFTER NEXT P.T. SESSION TO DETERMINE IF PT.WILL BE ABLE TO RETURN HOME AT DISCHARGE WITH HH OR NEED SNF.
[2020-02-15 16:00] VITALS: BP 116/61
[2020-02-15 19:30] VITALS: BP 134/61
[2020-02-16 00:26] VITALS: BP 133/67
[2020-02-16 04:00] VITALS: BP 122/60
[2020-02-16 05:27] LABS: ABSOLUTE EOSINOPHILS 0.1 thou/uL (0.0-0.7); ABSOLUTE LYMPHOCYTES 1.5 thou/uL (0.8-5.3); ABSOLUTE MONOCYTES 1.2 thou/uL (0.0-1.2); ABSOLUTE NEUTROPHILS 4.7 thou/uL (1.6-8.1); BASOPHILS 0.4 %; EOSINOPHILS 0.8 %; HEMATOCRIT 25.5 % (37.0-47.0); HEMOGLOBIN 7.8 gm/dL (12.0-15.0); LYMPHOCYTES 19.8 %; MCH 21.1 pg (26.0-34.0); MCHC 30.6 g/dL (28.0-37.0); MCV 68.8 fL (80.0-100.0); MONOCYTES 16.2 %; MPV 8.8 fl. (7.2-11.1); NUCLEATED RBCS 0 /100WBC; PLATELET COUNT* 160 thou/uL (150-400); POLYS 62.8 %; RDW-CV 21.1 % (10.5-14.5); WBC 7.5 thou/uL (4.0-11.0)
[2020-02-16 05:51] LABS: PREALBUMIN 6.8 mg/dL (18.0-35.7)
--- NOTE | 2020-02-16 05:56 | NUR ---
PT SLEPT WELL THIS SHIFT. PT WAS INCONTINENT OF BOWEL X2 THIS SHIFT. PT HAD 2 LOOSE STOOLS. EXPRESSIVE APHASIA. ISIDRO IN PLACE. LAC IV SL. FALL PRECAUTION IN PLACE. MEDS GIVEN PER EMAR. CALL LIGHT WITHIN REACH. HOURLY ROUNDINGS MADE. WILL CONTINUE TO MONITOR.
[2020-02-16 05:58] LABS: ALBUMIN 2.3 g/dL (3.4-5.0); CALCIUM 7.7 mg/dL (8.5-10.1); CREATININE 0.4 mg/dL (0.6-1.3); POTASSIUM 3.4 mmol/L (3.5-5.1); TOTAL BILIRUBIN 0.8 mg/dL (<0.1-1.0); TOTAL PROTEIN 4.8 g/dL (6.4-8.2)
[2020-02-16 08:00] VITALS: BP 132/62
[2020-02-16 09:06] VITALS: BP 132/62
[2020-02-16] MEDS ORDERED: TAPAZOLE10 MG PO (10:09)
[2020-02-16] MEDS ORDERED: COREG6.25 MG PO (10:09)
[2020-02-16] MEDS ORDERED: COZAAR 25 MG TA25 M1 PO (10:09)
[2020-02-16] MEDS ORDERED: IRON325 PO (10:09)
[2020-02-16] MEDS ORDERED: FLECAINIDE ACET50 M1 PO (10:09)
--- NOTE | 2020-02-16 11:30 | NUR ---
PT TO ROOM 226 VIA CART. PT DENIES PAIN. REPORTS IMPROVED SOA.MOTHER AT BS
--- NOTE | 2020-02-16 15:00 | NUR ---
PT.TO DISCHARGE TODAY WITH HOME HEALTH. SHE HAD USED [facility] PREVIOUSLY AND WANTED TO USE THEM AGAIN. FAXED ORDERS TO HOME HEALTH AT [phone]. SON'S GIRLFRIEND TO BE HERE ABOUT 3-4 TO PICK PT.UP PER RN. DETERMINED AT THIS ITME THAT PT.WOULD NEED A FRONT WHEEL WALKER PER THERAPYS RECOMMENDATIONS. HAD TO ORDER THROUGH [facility] PTS INSURANCE CONTRACTS WITH THEM. ORDER OBTAINED. FAXED NEEDED INFORMATION AND ORDER TO [facility]. SHE SAID WALKER COULD NOT BE DELIVERED TO HOSPITAL UNTIL ABOUT 4:30. PTS SON,BEAU CALLED CM AND SAID THEY WOULD GO BUY ONE AT DRUG STORE INSTEAD OF WAITING ON WALKER. CM CANCELLED ORDER THROUGH [facility]. SON THEN CALLED STATING THEY COULD NOT FIND ONE WITH FRONT WHEELS AT DRUG STORE. HE FELT THEY COULD ASSIST PT.WALK WITHOUT RECEIVING WALKER UNTIL AM. HE SAID GF WAS GOING TO BE HOME WITH PT. TOMORROW. REORDERED THROUGH [facility].
--- NOTE | 2020-02-16 16:00 | NUR ---
PT SITTING IN CHAIR THIS AFTERNOON. FOLLOWS COMMANDS. PARTICIPATES IN ALL THERAPIES. VOIDING WELL SINCE ISIDRO DC. AWAITING DC THIS PM
--- NOTE | 2020-02-16 19:07 | PATH ---
[address] [address] PATHOLOGY RPT PROCEDURE Name: MELODY SHARP Room: [address] IN M.R.#: [id number] Admission: 02/10/20 Date of : 47 Discharge: 02/16/20 Report #: [id number] Path Case #: [id number] [facility] Accession Number: [id number] . 01 Material submitted: . PART A: small bowel - SMALL BOWEL BIOPSY TO R/O IRON DEF ANEMIA PART B: rectum - RECTAL POLYP . 01 Clinician provided ICD-10: A41.9 J96.00 . 02 Diagnosis: A. "Small bowel biopsy to R/O iron def anemia", biopsy: - Small bowel mucosa with mild reactive changes; no evidence of celiac sprue. - Scant admixed benign squamous mucosa. (See comment). . B. "Rectal polyp", biopsy: - Tubular adenoma; no high grade dysplasia. . (CLW:jaxson; 02/16/2020) [facility] 02/16/2020 1418 Local . 02 Comment: The scant benign admixed squamous mucosa may represent esophageal and/or oral carryover. Clinical and endoscopic correlation is recommended. . (CLW:jaxson; 02/16/2020) . 02 Electronically signed: . Hannah Jolley MD, Pathologist NPI- [id number] . 01 Gross description: . . A. The specimen is received in formalin labeled "Melody Sharp, small bowel biopsy to rule out iron deficiency anemia" and consists of multiple fragments of hines tissue measuring 0.8 x 0.4 x 0.2 cm in aggregate which are entirely submitted in A1. . B. The specimen is received in formalin labeled "Melody Sharp, rectal polyp" and consists of multiple fragments of hines tissue measuring 0.6 x 0.2 x 0.1 cm in aggregate which are entirely submitted in B1. ([facility]; 02/15/2020) JFQ/DEBI 02/15/2020 [facility] [place] Local . 02 Pathologist provided ICD-10: [place] [address] PATHOLOGY RPT PROCEDURE Name: MELODY SHARP Room: [address] IN M.R.#: [id number] Admission: 02/10/20 Date of : 47 Discharge: 02/16/20 Report #: [id number] Path Case #: [id number] D12.8, A41.9, J96.00 . 02 CPT . [id number], [id number] Specimen Comment: A courtesy copy of this report has been sent to [phone] Specimen Comment: [phone], Specimen Comment: Report sent to ,DR TRACEY / DR ALEJO Performed at: [address] [facility] [address], [place], [place] [address] MD Ghulam Kay MD Phone: [phone] Performed at: 02 [facility] [place] [address] [address], [place], [place] [id number] MD Juan Carlos Harper MD Phone: [phone]
--- NOTE | 2020-02-17 15:12 | NUR ---
CALL FROM ANA LAURA/[facility] STATING SHE RECEIVED CALL FROM PTS SONS GIRLFRIEND, STATING THEY ARE HAVING DIFFICULTY TAKING CARE OF PT. CALLED ALISSA/[phone]. SHE SAID PT.IS HAVING QUITE A BIT OF TROUBLE/DIFFICULTY AMBULATING. SHE IS HAVING TO ALMOST CARRY HER TO THE BATHROOM. SHE IS REQUESTING PT.GO TO SNF FOR SHORT TIME. DISCUSSED FACILITIES THAT TAKE PTS INS. [facility] TAKS HER INS AND IS CLOSE TO WHERE THEY LIVE. SHE AND PTS SON WOOULD LIKE REFERRAL MADE THERE. FAXED INFORMATIOM TO [facility] [phone] AND LEFT MESSAGE FO [phone]
--- NOTE | 2020-02-22 11:06 | CON ---
[address] [address] CONSULTATION Name: KIERRA SHARP Room: [address] IN M.R.#: [id number] Admission: 02/10/20 Attend Phys: Meche Marie MD Discharge: 02/16/20 Date of : 47 Report #: [id number] THIS REPORT FOR: //name// cc: Alex Lainez Ahmad W. DO ~ THIS REPORT FOR: //name// CC: Alex Schneider MD [facility] Meche Marie MD DATE OF SERVICE: 02/12/2020 REFERRING PHYSICIAN: Meche Marie MD. REASON FOR CONSULTATION: Anemia. IMPRESSION: 1. Iron deficiency anemia. 2. Lower abdominal pain of uncertain significance. 3. Abnormal CAT scan suggestive of bowel wall thickening within the cecum. 4. Hypothyroidism, currently under treatment and newly diagnosed. 5. Paroxysmal supraventricular tachycardia secondary to #1, treated with cardioversion. 6. History of multiple strokes, requiring chronic Eliquis. RECOMMENDATIONS: 1. We will proceed with upper and lower endoscopy on Saturday and have the patient hold her Eliquis starting tomorrow. 2. We will give the patient a bowel preparation over 2 days to make it easier on her. 3. We will avoid all iron supplements at this time to begin until after her upper and lower endoscopies have been performed. 4. Contact the patient's son, Kareem by phone, these recommendations with both he and his mother are agreeable to the same. 5. In addition to these issues, the patient had elevated LFTs, it is likely related to shock liver with her paroxysmal supraventricular tachycardia, but we will schedule the patient for an abdominal ultrasound. Depending on the results of the same, the patient may need to have an MRI of the liver or triple phase CT of the liver due to evaluate suspected liver lesions. HISTORY OF PRESENT ILLNESS: The patient is a very pleasant 74-year-old white female with severe expressive aphasia secondary to previous strokes in the past, who presented to the hospital with complaints of severe [place] [address] CONSULTATION Name: ARONKIERRA JOANN Room: [address]#: [id number] Admission: 02/10/20 Attend Phys: Meche Marie MD Discharge: 02/16/20 Date of : 47 Report #: [id number] breath. She came in on the because of problems with nausea, vomiting as well as loose stools. She has just been losing weight. She is found to have hyperthyroidism and thyrotoxicosis and developed PSVT, for which she undergo cardioversion. She did have some hypotension. She denies any major complaints, referable to upper or lower GI tract other than tendency towards constipation. She has undergone endoscopic studies of her GI tract in the past, but it has been a number of years. She is admitted to the hospital for further evaluation and treatment. ALLERGIES: CODEINE, PENICILLIN, PREGABALIN. CURRENT MEDICATIONS: Tramadol, Tambocor, Eliquis, Lipitor. PAST MEDICAL HISTORY: Remarkable for hypertension, hyperlipidemia, chronic atrial fibrillation. She had previous strokes with expressive aphasia. She has history of malignant hyperthermia, mild aortic stenosis, diastolic dysfunction, history of melanoma many years ago, carpal tunnel surgery, hysterectomy, tonsillectomy, stapedectomy. SOCIAL HISTORY: The patient does not smoke or drink. FAMILY HISTORY: Negative. PHYSICAL EXAMINATION: GENERAL: Revealed a 74-year-old white female who has got severe expressive aphasia. She is awake and alert. CARDIOPULMONARY: Revealed a regular rate and rhythm. LUNGS: Clear. ABDOMEN: Soft and nontender. No rebound or guarding noted. LABORATORY DATA: Laboratory tests from the revealed a white count of 11.7, hemoglobin 7.6, platelet count of 179,000, MCV is 70.8 and RDW 21.0. In 07/2019, her white count was 5.4, hemoglobin 9.4, platelet count 229,000 with an MCV of 69.4 and RDW of 19.5. Here in further back in 2016, her white count was 12.1, hemoglobin 10.9, platelet count 269,000, MCV was 73.7, RDW is 24.1. Her sodium 134, potassium 3.5, chloride 100, bicarbonate is 27, BUN 24, creatinine 0.7, total bilirubin is 1.3. Alkaline phosphatase 94, AST is 124, ALT 289. In 07/2019, her bilirubin was 0.4, alkaline phosphatase 91, AST 15, ALT 22. Her free T4 is 3.78 and her TSH is less than 0.007. Ferritin is 24. CT scan of the abdomen and pelvis from 02/10/2020 revealed suboptimal visualization of the liver secondary to ____. There was some questionable masses that was not clear, circumferential wall thickening suspected to the cecum. She has 3.5 stable left adrenal mass. DISCUSSION: At the present time, the patient has anemia[place] [address] CONSULTATION Name: KIERRA SHARP Room: [address] IN .R.#: [id number] Admission: 02/10/20 Attend Phys: Meche Marie MD Discharge: 02/16/20 Date of : 47 Report #: [id number] upper and lower endoscopy in a couple of days' time and hold her Eliquis. I have discussed the plans with the patient and will likely just give her Dulcolax tabs for prep depending upon what she can tolerate. <ELECTRONICALLY SIGNED> By: Tello Hughes DO 02/22/20 1106 1339 [id number] Hughes DO /nt
== END 2020-02-16 17:15 | disposition home health service (06) | DRG 871 ==
LOC: M.ERS 17:03 → M.2W 18:52 → M.TBA-ER 18:52 → M.2W 23:40
PROVIDERS: Emergency Medicine; Family Medicine; Internal Medicine; Internal Medicine Gastroenterology; ADMIT Internal Medicine; ATTEND Internal Medicine
PROC: 5A2204Z Restoration of Cardiac Rhythm, Single (ICD-10-PCS; 2020-02-11)
PROC: 0DBP8ZZ Excision of Rectum, Via Natural or Artificial Opening Endoscopic (ICD-10-PCS; principal; 2020-02-15)
PROC: 0DB88ZX Excision of Small Intestine, Via Natural or Artificial Opening Endoscopic, Diagnostic (ICD-10-PCS; principal; 2020-02-15)
DX: A41.9 Sepsis, unspecified organism (principal); J96.00 Acute respiratory failure, unspecified whether with hypoxia or hypercapnia; I50.33 Acute on chronic diastolic (congestive) heart failure; I47.1 Supraventricular tachycardia; I69.351 Hemiplegia and hemiparesis following cerebral infarction affecting right dominant side; E44.0 Moderate protein-calorie malnutrition; R47.01 Aphasia; I48.92 Unspecified atrial flutter; K52.9 Noninfective gastroenteritis and colitis, unspecified; E11.9 Type 2 diabetes mellitus without complications; K21.9 Gastro-esophageal reflux disease without esophagitis; M06.9 Rheumatoid arthritis, unspecified; E05.90 Thyrotoxicosis, unspecified without thyrotoxic crisis or storm; R16.0 Hepatomegaly, not elsewhere classified; D50.9 Iron deficiency anemia, unspecified; I11.0 Hypertensive heart disease with heart failure; K44.9 Diaphragmatic hernia without obstruction or gangrene; K57.30 Diverticulosis of large intestine without perforation or abscess without bleeding; K64.4 Residual hemorrhoidal skin tags; K62.1 Rectal polyp; Z90.710 Acquired absence of both cervix and uterus; Z88.6 Allergy status to analgesic agent; Z88.0 Allergy status to penicillin; Z88.8 Allergy status to other drugs, medicaments and biological substances; Z68.27 Body mass index [BMI] 27.0-27.9, adult; Z79.899 Other long term (current) drug therapy

== ENCOUNTER 2020-04-01 19:16 | Inpatient (IN) | payer OTHER ==
[~2020-04-01] VITALS: Ht 165.1 cm; Wt 65.3 kg
[~2020-04-01 19:16] MED LIST changes: +COREG6.25 MG PO; +HYDROCHLOROTHIA25 M2 PO; +IRON325 PO; +TAPAZOLE10 MG PO
[2020-04-01 19:25] VITALS: BP 177/100
[2020-04-01 19:49] LABS: ABSOLUTE BASOPHILS 0.1 thou/uL (0.0-0.2); ABSOLUTE LYMPHOCYTES 1.1 thou/uL (0.8-5.3); ABSOLUTE MONOCYTES 0.5 thou/uL (0.0-1.2); BASOPHILS 0.7 %; EOSINOPHILS 0.2 %; HEMATOCRIT 35.5 % (37.0-47.0); HEMOGLOBIN 11.2 gm/dL (12.0-15.0); LYMPHOCYTES 11.1 %; MCHC 31.5 g/dL (28.0-37.0); MCV 85.9 fL (80.0-100.0); MONOCYTES 5.6 %; MPV 8.2 fl. (7.2-11.1); NUCLEATED RBCS 0 /100WBC; PLATELET COUNT* 221 thou/uL (150-400); POLYS 82.4 %; RBC 4.13 mil/uL (4.20-5.00); RDW-CV 29.2 % (10.5-14.5); WBC 9.7 thou/uL (4.0-11.0)
[2020-04-01 20:01] LABS: CALCIUM 8.4 mg/dL (8.5-10.1); CREATININE 0.8 mg/dL (0.6-1.3)
[2020-04-01 20:03] LABS: APTT 26.5 Seconds (25.0-31.3); INR 1.2
[2020-04-01 20:12] LABS: ALBUMIN 3.2 g/dL (3.4-5.0); TOTAL BILIRUBIN 1.7 mg/dL (<0.1-1.0); TOTAL PROTEIN 6.9 g/dL (6.4-8.2)
[2020-04-01 20:21] LABS: PLATELET ESTIMATE ADEQUATE
[2020-04-01 20:22] LABS: ANISOCYTOSIS 3+; POIKILOCYTOSIS 2+; POLYCHROMASIA Occasional
[2020-04-01 21:16] LABS: URINE BILIRUBIN NEGATIVE (Negative); URINE BLOOD TRACE (Negative); URINE CLARITY SL CLOUDY; URINE COLOR YELLOW; URINE GLUCOSE-RANDOM 2+ (Negative); URINE KETONES NEGATIVE (Negative); URINE LEUKOCYTES-REFLEX NEGATIVE (Negative); URINE PROTEIN 1+ (Negative); URINE SPECIFIC GRAVITY >= 1.030 (1.005-1.030); URINE UROBILINOGEN 0.2 E.U./dl (0.2-1.0)
[2020-04-01 21:17] LABS: URINE NITRITE-REFLEX POSITIVE (Negative)
[2020-04-01 21:27] LABS: BACTERIA-REFLEX >30 Many /HPF (None Seen); CASTS None Seen /LPF (None Seen); CRYSTALS None Seen /LPF (None Seen); SQUAMOUS 0-3 Few /LPF (0-3); URINE RBC 3-10 Few /HPF (0-2); URINE WBC-REFLEX >25 Many /HPF (0-5)
[2020-04-02 02:33] VITALS: BP 150/84
[2020-04-02 06:28] VITALS: BP 144/99
[2020-04-02 11:02] VITALS: BP 127/71
[2020-04-02 11:30] VITALS: BP 139/71
--- NOTE | 2020-04-02 13:38 | EKG ---
[place] [address] ELECTROCARDIOGRAM REPORT Name: KIERRA SHARP Room: [address] ADM IN M.R.#: [id number] Admission: 04/01/20 Attend Phys: Samuel Wang, Discharge: Date of : 47 Date of Service: 04/01/201921 Report #: [id number] THIS REPORT FOR: //name// [facility] ED Test Date: 2020-04-01 Test Time: 19:22:13 Pat Name: KIERRA SHARP Department: Room: [facility] Gender: F Dolly Driver: KIARA : 1945 Requested By: Hadley Houston Order Number: [id number] MD: King Morales Measurements Intervals [place] Rate: 137 P: 42 [place]: 138 QRS: 15 QRSD: 93 T: 119 QT: 288 QTc: 435 Interpretive Statements Sinus tachycardia Probable left atrial enlargement Anterior infarct, old Repolarization abnormality, prob rate related Baseline wander in lead(s) I,II,III,aVL,aVF,V1,V2,V4,V5 Compared to ECG 02/15/2020 14:10:26 Sinus rhythm no longer present Myocardial infarct finding still present Electronically Signed On 04-02-2020 13:38:03 CDT by King Morales [email or web address] <ELECTRONICALLY SIGNED> By: King Morales MD, [facility] 04/02/20 1338 21 21 King Morales MD, [facility] /EPI
--- NOTE | 2020-04-02 13:47 | NUR ---
PT ADMITTED TO ROOM 221 FROM ED WITH CHF EXACERBATION, UTI AND DYSPNEA. PT HAS SEVERE EXPRESSIVE APHASIA AND WILL REQUIRE HX REVIEW WITH SON. PT IS OX4. O2 SAT 97% ON 3L NC. PT DOES NOT WEAR O2 AT HOME. ST ON MONITOR. PT ORIENTED TO ROOM, EDUCATED TO TREATMENTS, PLAN OF CARE AND FALL PRECAUTIONS. CLWR.
[2020-04-02] MEDS ORDERED: CARVEDILOL12.5 MG PO (14:17)
[2020-04-02] MEDS ORDERED: COZAAR 25 MG TA25 M1 PO (14:19)
[2020-04-02] MEDS ORDERED: CALCIUM500 MG PO (14:20)
[2020-04-02] MEDS ORDERED: KLOR-CON M2020 MEQ PO (14:20)
[2020-04-02 17:29] VITALS: BP 121/79
[2020-04-02 19:50] VITALS: BP 129/67
[2020-04-03] VITALS: BP 130/61
[2020-04-03 04:00] VITALS: BP 104/56
[2020-04-03 04:57] LABS: HEMATOCRIT 33.4 % (37.0-47.0); HEMOGLOBIN 10.5 gm/dL (12.0-15.0); MCHC 31.5 g/dL (28.0-37.0); MCV 85.8 fL (80.0-100.0); MPV 8.3 fl. (7.2-11.1); RBC 3.89 mil/uL (4.20-5.00); RDW-CV 28.9 % (10.5-14.5); WBC 8.2 thou/uL (4.0-11.0)
[2020-04-03 05:23] LABS: ALBUMIN 2.8 g/dL (3.4-5.0); CALCIUM 8.7 mg/dL (8.5-10.1); CREATININE 0.6 mg/dL (0.6-1.3); MAGNESIUM 1.9 mg/dL (1.8-2.4); TOTAL BILIRUBIN 1.2 mg/dL (<0.1-1.0); TOTAL PROTEIN 6.2 g/dL (6.4-8.2)
[2020-04-03 05:25] LABS: POTASSIUM 2.8 mmol/L (3.5-5.1)
--- NOTE | 2020-04-03 06:57 | NUR ---
PT ALERT AND ORIENTED. PT CAN GET EASILY FRUSTRATED DUE TO EXPRESSIVE APHASIA. PT SLEPT WELL THIS SHIFT. VSS ON 2L. PT STB TO VSC. PT DENIES PAIN THIS SHIFT. WILL CONTINUE TO MONITOR.
[2020-04-03 12:00] VITALS: BP 106/50
[2020-04-03 16:12] VITALS: BP 105/51
--- NOTE | 2020-04-03 19:05 | NUR ---
PT HAS RESTED T/O DAY WITHOUT COMPLAINTS. PT TO BE NPO AFTER 0000 FOR ABD US. MAY DC TOMORROW. CLWR
[2020-04-03 20:00] VITALS: BP 117/70
[2020-04-04] VITALS: BP 107/62
[2020-04-04 04:00] VITALS: BP 114/73
[2020-04-04 04:50] LABS: HEMATOCRIT 34.3 % (37.0-47.0); HEMOGLOBIN 10.9 gm/dL (12.0-15.0); MCH 27.3 pg (26.0-34.0); MCHC 31.8 g/dL (28.0-37.0); MCV 86.1 fL (80.0-100.0); MPV 8.5 fl. (7.2-11.1); RBC 3.98 mil/uL (4.20-5.00); RDW-CV 28.4 % (10.5-14.5); WBC 8.8 thou/uL (4.0-11.0)
[2020-04-04 05:13] LABS: ALBUMIN 2.9 g/dL (3.4-5.0); CALCIUM 8.7 mg/dL (8.5-10.1); CREATININE 0.5 mg/dL (0.6-1.3); POTASSIUM 4.1 mmol/L (3.5-5.1); TOTAL PROTEIN 6.4 g/dL (6.4-8.2)
--- NOTE | 2020-04-04 05:19 | NUR ---
ASSUMED PATIENT CARE AT 1900. ASSESSMENT COMPLETED CHARTED. CARDIAC MONITORING IN PLACE. HOURLY ROUNDING IN PLACE FOR PATIENT SAFETY. FALL PRECAUTIONS IN PLACE FOR PATIENT SAFETY. BED LOCKED AND IN LOWEST POSITION. CLWR.
[2020-04-04 08:00] VITALS: BP 133/64
[2020-04-04 12:37] VITALS: BP 125/77
--- NOTE | 2020-04-04 14:20 | NUR ---
CM SPOKE TO THE PT TO DISCUSS HER HOME SITUATION, DISCHARGE PLANNING, AND TO INFORM OF THE ROLE OF CM. PT HAS EXPRESSIVE APHASIA, AND IS EASILY FRUSTRATED WITH WORD FINDING DIFFICULY. PT ACCEPTS CM OFFER TO SPEAK TO HER SON TO COMPLETE CM ASSESSMENT. PT'S SON INFORMS THAT THE PT IS NORMALLY A&O. PRIOR RO ADMIT PT INDEPENDENT WITH ADL'S. PT USES A WALKER FOR MOBILITY. PT RESIDES AT HOME WITH HER SON AND HIS SIGNIFICANT OTHER. PT CURRENTLY ON-SERVICE WITH [facility]. PT HAD RECENTLY D/C FROM SNF AT [facility]. PT'S PCP IS JERILYN ALEJO. PT'S SON REQUEST THAT [facility]. CM WILL REMAIN AVAILABLE TO ASSIST AND FOLLOW NEEDED. [facility] PHONE: [phone] FAX: [phone]
--- NOTE | 2020-04-04 15:01 | 2DMMODE ---
[place] [address] 2 D/M-MODE ECHOCARDIOGRAM Name: ARONKIERRA DAVID Room: [address] IN .Vivienne.#: [id number] Admission: 04/01/20 Attend Phys: Samuel Wang, Discharge: Date of : 47 Date of Service: 04/04/20 1500 Report #: [id number] THIS REPORT FOR: cc: FAM - No family physician/PCP FAM - No family physician/PCP King Morales MD [facility] ~ APPROVED REPORT Study performed: 04/04/2020 10:05:20 EXAM: Comprehensive 2D, Doppler, and color-flow Echocardiogram Patient Location: In-Patient Room #: 228 Status: routine BSA: 1.72 HR: 99 bpm BP: 114/73 mmHg Rhythm: NSR Other Information Study Quality: Good Indications Abnormal ECG Congestive Heart Failure Dyspnea 2D Dimensions IVSd: 10.05 (7-11mm) LVOT Diam: 20.37 (18-24mm) LVDd: 44.11 mm PWd: 9.62 (7-11mm) Ascending Ao: 27.16 (22-36mm) LVDs: 38.28 (25-40mm) Aortic Root: 29.32 mm Volumes Left Atrial Volume (Systole) LA ESV Index: 73.30 mL/m2 Aortic Valve AoV Peak Roc.: 2.01 m/s AO Peak Gr.: 16.20 mmHg LVOT Max P.84 mmHg AO Mean Gr.: 10.24 mmHg LVOT Mean P.95 mmHg LVOT Max V: 0.68 m/s AO V2 VTI: 32.39 cm LVOT Mean V: 0.45 m/[place] [address] 2 D/M-MODE ECHOCARDIOGRAM Name: KIERRA SHARP Room: [address] IN ..#: [id number] Admission: 04/01/20 Attend Phys: Samuel Wang, Discharge: Date of : 47 Date of Service: 04/04/20 1500 Report #: [id number] BUZZ (VTI): 1.10 cm2 LVOT V1 VTI: 10.95 cm AI Archer: 3.51 m/s2 AI PHT: 285.87 ms Mitral Valve MV Mean Gr.: 3.57 mmHg E/A Ratio: 4.50 MV Decel. Time: 127.45 ms MV E Max Roc.: 1.60 m/s MV PHT: 36.96 ms MVA (PHT): 5.95 cm2 TDI E/Lateral E': 14.55 E/Medial E': 26.67 Medial E' Roc.: 0.06 m/s Lateral E' Roc.: 0.11 m/s Pulmonary Valve PV Peak Roc.: 0.86 m/s PV Peak Gr.: 2.95 mmHg Tricuspid Valve RAP Estimate: 5.00 mmHg TR Peak Gr.: 40.55 mmHg RVSP: 45.00 mmHg PA Pressure: 45.00 mmHg Left Ventricle The left ventricle is normal size. There is global hypokinesis of the left ventricle. There is normal left ventricular wall thickness. Left ventricular systolic function is severely decreased. LVEF is 20-25%. Grade IV - fixed restrictive diastolic dysfunction. Right Ventricle The right ventricle is normal size. The right ventricular systolic function is normal. Atria Left atrium is severely dilated. The right atrium size is normal. Aortic Valve Aortic valve is calcified. Mild aortic regurgitation. Mild aortic stenosis. Mitral Valve There is mitral annular calcification. The mitral valve is normal in structure. Moderate mitral regurgitation. [place] [address] 2 D/M-MODE ECHOCARDIOGRAM Name: KIERRA SHARP Room: [address] IN [facility]#: [id number] Admission: 04/01/20 Attend Phys: Samuel Wang, Discharge: Date of : 47 Date of Service: 04/04/20 1500 Report #: [id number] Tricuspid Valve The tricuspid valve is normal in structure. Moderate tricuspid regurgitation. estimated pa pressure 50 mm Hg Pulmonic Valve The pulmonary valve is normal in structure. Mild pulmonic regurgitation. Great Vessels The aortic root is normal in size. IVC is normal in size and collapses >50% with inspiration. Pericardium There is no pericardial effusion. <Conclusion> Left ventricular systolic function is severely decreased. LVEF is 20-25%. Left atrium is severely dilated. Mild aortic stenosis. Mild aortic regurgitation. Moderate mitral regurgitation. Moderate tricuspid regurgitation. estimated pa pressure 50 mm Hg <ELECTRONICALLY SIGNED> By: King Morales MD, FACC 04/04/201499 1500 99 King Morales MD, FACC /INF
[2020-04-04 16:46] VITALS: BP 106/72
--- NOTE | 2020-04-04 19:02 | NUR ---
PT A&OX4, VSS. PT SON UPDATED BY PHONE THIS AM, SPOKE W/CASE MGMNT WELL. PT HAS EXPRESSIVE APHASIA R/T PREVIOUS STROKE. PT ABLE TO MAKE NEEDS KNOWN. PT REMAINS CONTINENT OF B/B. UP TO BS, GAIT STEADY. IV TO RFA PATENT, DRSSING C/D/I. PT ON 2L BY NASAL CANNULA. PT SINUS/SINUS TACH ON MONITOR. PT IS ACCUCHECK, INSULIN ADMINISTERED INDICATED. PT NPO FOR BREAKFAST FOR SCHEDULED TESTS. ECHO AND ABD U/S THIS SHIFT. PT RESTING IN BED WITH CALL LIGHT IN REACH. WILL CONTINUE TO MONITOR.
[2020-04-04 20:00] VITALS: BP 106/60
--- NOTE | 2020-04-04 20:00 | NUR ---
RECEIVED REPORT AND ASSUMED CARE OF PT, ASSESSMENT COMPLETED. PT HAVING EXPRESSIVE APHASIA BUT ABLE TO UNDERSTAND WHAT SHE IS TRYING TO COMMUNICATE. INDEPENDENT TO BSC, VOIDING WITHOUT DIFFICULTY. TELEMETRY ON SHOWING SR WITH OCC PAC.
[2020-04-05] VITALS: BP 105/55
[2020-04-05 04:20] VITALS: BP 109/69
--- NOTE | 2020-04-05 07:30 | NUR ---
SLEPT WELL TONIGHT. UP TO BSC WITH STEADY GAIT. NO CHANGE IN ASSESSMENT OR COMPLAINTS VOICED. GOALS OF REST AND SAFETY ACHIEVED. HOURLY ROUNDING OBSERVED.
[2020-04-05 08:30] VITALS: BP 130/86
[2020-04-05 12:45] VITALS: BP 120/75
--- NOTE | 2020-04-05 14:44 | CON ---
[address] [address] CONSULTATION Name: ARONKIERRA DAVID Room: [address] ADM IN M.R.#: [id number] Admission: 04/01/20 Attend Phys: Samuel Wang MD Discharge: Date of : 47 Report #: [id number] THIS REPORT FOR: //name// cc: STEFANO Morse family physician/PCP STEFANO - Mini family physician/PCP ~ THIS REPORT FOR: //name// CC: Alex Lainez DO [facility] physician/PCP Samuel Wang DATE OF SERVICE: 04/02/2020 CARDIOLOGY CONSULTATION HISTORY OF PRESENT ILLNESS: The patient is a 74-year-old single white female who I was asked to see in the hospital today after she complained of being short of breath. The patient has an extensive and complicated past medical history. She has had a previous stroke in the past with residual aphasia. Previous echocardiogram showed normal ejection fraction, mild aortic stenosis, but no intracardiac shunt. She was placed on Plavix. I actually saw her in Cardiology Clinic a year ago. She was admitted here in January with a narrow complex tachycardia and had to be cardioverted. She was then placed on flecainide and Eliquis. She was found to have a liver mass. She was eventually discharged. She was brought back to the Emergency Room yesterday after being discharged from rehabilitation. She complained of being short of breath. However, she apparently had learned yesterday that her sister been placed on hospice and she became very upset. When she came to the Emergency Room, she was noted to be tachycardic. She is admitted for further evaluation and treatment. She did notice a cough, but denied chest pain, syncope. PAST MEDICAL HISTORY: Otherwise, significant for hysterectomy, tonsillectomy, carpal tunnel surgery, removal of melanoma, back surgery, previous stroke, hypertension, mild aortic stenosis. MEDICATIONS: Include flecainide, Eliquis, Lipitor, Protonix, glimepiride, carvedilol, losartan, hydrochlorothiazide. ALLERGIES: SHE HAS AN ALLERGY TO PENICILLIN. SOCIAL HISTORY: No smoking or alcohol abuse. REVIEW OF SYSTEMS: She has had a previous stroke. No history of asthma, liver disease, kidney disease, cancer, psychiatric illness. PHYSICAL EXAMINATION: [place] [address] CONSULTATION Name: KIERRA SHARP Room: [address]#: [id number] Admission: 04/01/20 Attend Phys: Samuel Wang MD Discharge: Date of : 47 Report #: [id number] VITAL SIGNS: On admission, her blood pressure of 120/70, pulse is 100. She is afebrile. HEENT: She is anicteric. Conjunctivae pink. Mucous membranes dry. NECK: Veins do not appear distended. CHEST: Clear to auscultation. CARDIOVASCULAR: Regular rate and rhythm. ABDOMEN: Soft. EXTREMITIES: Had trace edema. SKIN: Cool and dry. NEUROLOGIC: Nonfocal. DIAGNOSTIC STUDIES: Her ECG on admission showed a sinus tachycardia, nonspecific T-wave changes. Her echocardiogram a year ago showed ejection fraction 60%. There was trace mitral regurgitation noted. There was calcified aortic valve, peak gradient across the aortic valve was 30 mmHg consistent with mild aortic stenosis. Her workup in the Emergency Room yesterday showed cardiomegaly, mild vascular congestion. CT scan of the chest using a PE protocol showed no pulmonary embolus, pulmonary edema, cardiomegaly, small effusions. CT scan of the head showed no acute abnormality. Previous infarction. LABORATORY DATA: Sodium 136, BUN 14, creatinine 0.8. Liver function studies were normal. Her T4 1.3. Her white blood cell count 9.7, hematocrit 35.3. IMPRESSION AND RECOMMENDATIONS: 1. History of supraventricular tachycardia. The patient is currently on flecainide. 2. Previous stroke. The patient is on Eliquis. 3. Hyperlipidemia. 4. Hypertension. The patient is on a beta jacque. 5. Diastolic heart failure. Recommend Lasix. 6. Mild aortic stenosis. <ELECTRONICALLY SIGNED> By: King Morales MD, FACC 04/05/20 1444 1219 [id number] Morales MD, FACC /nt
[2020-04-05 15:12] LABS: ABSOLUTE BASOPHILS 0.1 thou/uL (0.0-0.2); ABSOLUTE LYMPHOCYTES 1.3 thou/uL (0.8-5.3); ABSOLUTE MONOCYTES 0.7 thou/uL (0.0-1.2); ABSOLUTE NEUTROPHILS 5.2 thou/uL (1.6-8.1); BASOPHILS 1.1 %; EOSINOPHILS 0.3 %; HEMATOCRIT 36.2 % (37.0-47.0); HEMOGLOBIN 11.4 gm/dL (12.0-15.0); LYMPHOCYTES 17.7 %; MCH 27.3 pg (26.0-34.0); MCHC 31.4 g/dL (28.0-37.0); MONOCYTES 9.2 %; MPV 8.8 fl. (7.2-11.1); NUCLEATED RBCS 0 /100WBC; PLATELET COUNT* 228 thou/uL (150-400); POLYS 71.7 %; RBC 4.16 mil/uL (4.20-5.00); RDW-CV 27.6 % (10.5-14.5); WBC 7.3 thou/uL (4.0-11.0)
--- NOTE | 2020-04-05 15:19 | NUR ---
RE: CHF Medication Teaching Saw pt today at bedside for CHF Medication teaching. Covered topics include what the medications do, how/when to take, possible side effects to watch for, etc. The patient indicates they have no questions at this time. Pharmacy is available for further needs, thank you.
[2020-04-05 15:26] LABS: ALBUMIN 3.3 g/dL (3.4-5.0); CALCIUM 8.6 mg/dL (8.5-10.1); CREATININE 0.9 mg/dL (0.6-1.3); POTASSIUM 4.1 mmol/L (3.5-5.1); TOTAL PROTEIN 7.2 g/dL (6.4-8.2)
[2020-04-05 15:50] LABS: PLATELET ESTIMATE ADEQUATE
[2020-04-05 15:51] LABS: ANISOCYTOSIS 3+; POIKILOCYTOSIS 1+; POLYCHROMASIA 1+
[2020-04-05 20:00] VITALS: BP 122/61
[2020-04-06] VITALS: BP 103/57
--- NOTE | 2020-04-06 03:20 | NUR ---
PT ALERT ORIENTED. PT HAS EXPRESSIVE APHASIA. INAPPROPRIATE AT TIMES. SHYAM HEARING AIDS. TELEMTRY SHOWS SR. O2 AT 2 LITERS NC. WCTM
[2020-04-06 04:00] VITALS: BP 106/53
--- NOTE | 2020-04-06 07:50 | NUR ---
ASSUMED CARE OF PATIENT THIS MORNING FROM NIGHT NURSE. PT IS DOING WELL AND HAS NO CO OF PAIN OR NAUSEA. SHE WAS EDUCATED ON POC, DISEASE PROCESS AND USING THE CALL LIGHT FOR ASSISTANCE. WILL CONTINUE TO MONITOR.
[2020-04-06 08:00] VITALS: BP 110/60
[2020-04-06 08:10] LABS: ABSOLUTE BASOPHILS 0.1 thou/uL (0.0-0.2); ABSOLUTE EOSINOPHILS 0.1 thou/uL (0.0-0.7); ABSOLUTE LYMPHOCYTES 1.4 thou/uL (0.8-5.3); ABSOLUTE MONOCYTES 0.6 thou/uL (0.0-1.2); ABSOLUTE NEUTROPHILS 4.8 thou/uL (1.6-8.1); BASOPHILS 0.9 %; HEMATOCRIT 36.9 % (37.0-47.0); HEMOGLOBIN 11.6 gm/dL (12.0-15.0); MCH 27.5 pg (26.0-34.0); MCHC 31.4 g/dL (28.0-37.0); MCV 87.6 fL (80.0-100.0); MONOCYTES 8.4 %; MPV 8.3 fl. (7.2-11.1); NUCLEATED RBCS 0 /100WBC; PLATELET COUNT* 190 thou/uL (150-400); POLYS 69.7 %; RBC 4.21 mil/uL (4.20-5.00); RDW-CV 27.6 % (10.5-14.5); WBC 6.9 thou/uL (4.0-11.0)
[2020-04-06 08:26] LABS: ALBUMIN 3.1 g/dL (3.4-5.0); CALCIUM 8.8 mg/dL (8.5-10.1); CREATININE 0.6 mg/dL (0.6-1.3); POTASSIUM 4.8 mmol/L (3.5-5.1); TOTAL BILIRUBIN 1.2 mg/dL (<0.1-1.0); TOTAL PROTEIN 6.7 g/dL (6.4-8.2)
[2020-04-06 11:30] VITALS: BP 116/47
[2020-04-06] MEDS ORDERED: HUMALOG100 UNIT/1 SUBQ (11:59)
[2020-04-06] MEDS ORDERED: SPIRONOLACTONE25 MG PO (11:59)
[2020-04-06] MEDS ORDERED: COREG6.25 MG PO (11:59)
[2020-04-06] MEDS ORDERED: LIPITOR 40 MG T40 M1 PO (11:59)
[2020-04-06] MEDS ORDERED: CIPRO250 M2 PO (14:11)
--- NOTE | 2020-04-06 15:17 | NUR ---
PT [place] DISCHARGED WITH HER DAUGHTER IN LAW. SHE WAS GIVEN A LIST OF DISCHARGE INSTRUCITONS.
--- NOTE | 2020-04-06 16:23 | NUR ---
CM INFORMED THAT THE PT IS READY TO D/C [place] TODAY WITH HH, AN DID NOT QUALIFY FOR HOME O2 PER R.T. TESTING. CM SPOKE TO [facility] TO INFORM OF THE PT'S D/C AND FAXED HER D/C ORDERS. [facility] TO CONTACT THE PT'S SON TO ARRANGE A TIME TO VISIT. CM WILL REMAIN AVAILABLE TO ASSIST AND FOLLOW NEEDED.
== END 2020-04-06 15:00 | disposition home health service (06) | DRG 177 ==
LOC: M.ERS 19:16 → M.TBA-ER 22:23 → M.2W 22:23
PROVIDERS: Family Medicine; Internal Medicine; Internal Medicine Cardiovascular Disease; ADMIT Internal Medicine; ATTEND Internal Medicine
DX: J69.0 Pneumonitis due to inhalation of food and vomit (principal); J96.00 Acute respiratory failure, unspecified whether with hypoxia or hypercapnia; I50.43 Acute on chronic combined systolic (congestive) and diastolic (congestive) heart failure; N39.0 Urinary tract infection, site not specified; I69.351 Hemiplegia and hemiparesis following cerebral infarction affecting right dominant side; I43 Cardiomyopathy in diseases classified elsewhere; E11.65 Type 2 diabetes mellitus with hyperglycemia; I11.0 Hypertensive heart disease with heart failure; K21.9 Gastro-esophageal reflux disease without esophagitis; B96.1 Klebsiella pneumoniae [K. pneumoniae] as the cause of diseases classified elsewhere; M19.90 Unspecified osteoarthritis, unspecified site; M06.9 Rheumatoid arthritis, unspecified; I35.0 Nonrheumatic aortic (valve) stenosis; E78.5 Hyperlipidemia, unspecified; D64.9 Anemia, unspecified; J44.9 Chronic obstructive pulmonary disease, unspecified; E03.9 Hypothyroidism, unspecified; E05.90 Thyrotoxicosis, unspecified without thyrotoxic crisis or storm; Z20.828 Contact with and (suspected) exposure to other viral communicable diseases; Z90.49 Acquired absence of other specified parts of digestive tract; Z90.710 Acquired absence of both cervix and uterus; Z85.89 Personal history of malignant neoplasm of other organs and systems; I69.820 Aphasia following other cerebrovascular disease; Z79.01 Long term (current) use of anticoagulants; Z79.84 Long term (current) use of oral hypoglycemic drugs; Z79.899 Other long term (current) drug therapy; Z88.5 Allergy status to narcotic agent; Z88.0 Allergy status to penicillin; Z88.8 Allergy status to other drugs, medicaments and biological substances

== ENCOUNTER 2020-04-14 13:00 | Inpatient (IN) | payer OTHER ==
[~2020-04-14] VITALS: Ht 152.4 cm; Wt 70.3 kg
[~2020-04-14 13:00] MED LIST changes: +CALCIUM500 MG PO; +CIPRO250 M2 PO; +HUMALOG100 UNIT/1 SUBQ; +KLOR-CON M2020 MEQ PO; +LIPITOR 40 MG T40 M1 PO; +SPIRONOLACTONE25 MG PO
[2020-04-14 13:08] VITALS: BP 141/73
[2020-04-14 13:24] LABS: ABSOLUTE BASOPHILS 0.1 thou/uL (0.0-0.2); ABSOLUTE LYMPHOCYTES 1.6 thou/uL (0.8-5.3); ABSOLUTE MONOCYTES 0.7 thou/uL (0.0-1.2); ABSOLUTE NEUTROPHILS 6.9 thou/uL (1.6-8.1); BASOPHILS 0.9 %; EOSINOPHILS 0.1 %; HEMATOCRIT 34.8 % (37.0-47.0); HEMOGLOBIN 11.3 gm/dL (12.0-15.0); LYMPHOCYTES 17.3 %; MCH 28.6 pg (26.0-34.0); MCHC 32.4 g/dL (28.0-37.0); MCV 88.2 fL (80.0-100.0); MONOCYTES 7.5 %; MPV 8.7 fl. (7.2-11.1); NUCLEATED RBCS 0 /100WBC; PLATELET COUNT* 238 thou/uL (150-400); POLYS 74.2 %; RBC 3.95 mil/uL (4.20-5.00); RDW-CV 24.8 % (10.5-14.5); WBC 9.3 thou/uL (4.0-11.0)
[2020-04-14 13:25] LABS: CALCIUM 8.5 mg/dL (8.5-10.1); CREATININE 0.8 mg/dL (0.6-1.3); POTASSIUM 4.8 mmol/L (3.5-5.1)
[2020-04-14 13:36] LABS: ALBUMIN 3.3 g/dL (3.4-5.0); TOTAL BILIRUBIN 1.5 mg/dL (<0.1-1.0); TOTAL PROTEIN 6.6 g/dL (6.4-8.2)
--- NOTE | 2020-04-14 16:08 | EKG ---
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1945 Requested By: Vic Wells Order Number: [id number] MD: Jabier Combs Measurements Intervals [place] Rate: 138 P: 116 MD: 101 QRS: -36 QRSD: 95 T: -85 QT: 355 QTc: 538 Interpretive Statements Sinus tachycardia with irregular rate Left axis deviation Probable anterior infarct, age indeterminate Prolonged QT interval Baseline wander in lead(s) I,III,aVL,V3 Compared to ECG 04/01/2020 19:22:13 Left-axis deviation now present Prolonged QT interval now present Early repolarization no longer present Myocardial infarct finding still present Electronically Signed On 04-14-2020 16:08:05 CDT by Jabier Combs [email or web address] <ELECTRONICALLY SIGNED> By: Jabier Combs MD, FAC 04/14/20 1608 20 132 Jabier Combs MD, [facility] /EPI
[2020-04-14 17:02] VITALS: BP 128/98
[2020-04-14 17:45] VITALS: BP 130/87
[2020-04-14 19:45] VITALS: BP 147/77
[2020-04-15] VITALS (28 sets, daily range): BP systolic 64–172; BP diastolic 24–93
[2020-04-15 05:02] LABS: CHOLESTEROL 119 mg/dL (<200); HDL CHOLESTEROL 38 mg/dL (>40); LDL CHOLESTEROL 73 mg/dL (<100); TC:HDL 3.1 Ratio (Not establshd); TRIGLYCERIDE 44 mg/dL (<150); VLDL 9 mg/dL (<40)
[2020-04-15 05:03] LABS: SERUM ASSESSMENT CLEAR
--- NOTE | 2020-04-15 14:06 | EKG ---
[place] [address] ELECTROCARDIOGRAM REPORT Name: KIERRA SHARP Room: [address] ADM IN M.R.#: [id number] Admission: 04/14/20 Attend Phys: Hebert Rodriges Discharge: Date of : 47 Date of Service: 04/15/20 [facility] Report #: [id number] THIS REPORT FOR: //name// 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: : 1945 Requested By: Hebert Rodriges Order Number: [id number] Sonia MD: Fermin Hoover Measurements Intervals [place] Rate: 98 P: 248 [place]: 182 QRS: -32 QRSD: 120 T: 94 QT: 386 QTc: 493 Interpretive Statements Consider slow atrial flutter with 2-1 atrial ventricular conduction block Incomplete left bundle branch block Consider anterior infarct Compared to ECG 04/14/2020 13:21:59 Atrial flutter no noted Sinus tachycardia no longer present Left-axis deviation no longer present Prolonged QT interval no longer present Myocardial infarct finding still present Electronically Signed On 04-15-2020 14:06:04 CDT by Fermin Hoover [email or web address] <ELECTRONICALLY SIGNED> By: Fermin Hoover MD, [facility] 04/15/20 1406 1300 1300 Fermin Hoover MD, [facility] /EPI
[2020-04-15 17:36] LABS: CALCIUM 9.5 mg/dL (8.5-10.1); CREATININE 2.2 mg/dL (0.6-1.3)
[2020-04-15 17:39] LABS: POTASSIUM 6.7 mmol/L (3.5-5.1)
[2020-04-15 18:37] LABS: BE -18.3 mmol/L (-2 to +3); PO2 121.5 mmHg (75.0-100.0)
[2020-04-15 18:41] LABS: PCO2 < 17.0 mmHg (35.0-45.0); pH 7.278 (7.340-7.450)
[2020-04-15 20:07] LABS: CALCIUM 9.1 mg/dL (8.5-10.1); CREATININE 1.9 mg/dL (0.6-1.3)
[2020-04-15 20:08] LABS: POTASSIUM 7.1 mmol/L (3.5-5.1)
[2020-04-16] VITALS (46 sets, daily range): BP systolic 87–162; BP diastolic 34–129
[2020-04-16 00:12] LABS: CALCIUM 8.7 mg/dL (8.5-10.1); CREATININE 2.4 mg/dL (0.6-1.3)
[2020-04-16 00:13] LABS: POTASSIUM 5.2 mmol/L (3.5-5.1)
[2020-04-16 02:06] LABS: GLYCOHEMOGLOBIN (HGB A1C) 6.7 % (4.8-5.6)
[2020-04-16 05:42] LABS: HEMATOCRIT 31.3 % (37.0-47.0); HEMOGLOBIN 9.8 gm/dL (12.0-15.0); MCH 28.2 pg (26.0-34.0); MCHC 31.4 g/dL (28.0-37.0); NUCLEATED RBCS 0 /100WBC; RBC 3.48 mil/uL (4.20-5.00); RDW-CV 23.9 % (10.5-14.5)
[2020-04-16 06:05] LABS: PLATELET COUNT* 142 thou/uL (150-400); WBC 30.7 thou/uL (4.0-11.0)
[2020-04-16 06:07] LABS: ALBUMIN 2.9 g/dL (3.4-5.0); CALCIUM 7.8 mg/dL (8.5-10.1); CREATININE 2.3 mg/dL (0.6-1.3); POTASSIUM 4.9 mmol/L (3.5-5.1); TOTAL BILIRUBIN 3.4 mg/dL (<0.1-1.0); TOTAL PROTEIN 5.6 g/dL (6.4-8.2)
[2020-04-16 06:44] LABS: ABSOLUTE LYMPHOCYTES 0.9 thou/uL (0.8-5.3); ABSOLUTE MONOCYTES 0.6 thou/uL (0.0-1.2); ABSOLUTE NEUTROPHILS 29.2 thou/uL (1.6-8.1); PLATELET ESTIMATE ADEQUATE
[2020-04-16 09:37] LABS: URINE BLOOD 3+ (Negative); URINE CLARITY SL CLOUDY; URINE COLOR DARK YELLOW; URINE GLUCOSE-RANDOM 2+ (Negative); URINE KETONES NEGATIVE (Negative); URINE LEUKOCYTES-REFLEX NEGATIVE (Negative); URINE NITRITE-REFLEX NEGATIVE (Negative); URINE PROTEIN 3+ (Negative); URINE SPECIFIC GRAVITY >= 1.030 (1.005-1.030)
[2020-04-16 09:41] LABS: ICTOTEST (BILI CONFIRMATORY) Negative (Negative); URINE BILIRUBIN 1+ (Negative)
[2020-04-16 09:45] LABS: BACTERIA-REFLEX >30 Many /HPF (None Seen); CASTS None Seen /LPF (None Seen); CRYSTALS None Seen /LPF (None Seen); MUCUS 4-6 Moderate strn/LPF (None Seen); SQUAMOUS 0-3 Few /LPF (0-3); URINE RBC 3-10 Few /HPF (0-2); URINE WBC-REFLEX 6-15 Few /HPF (0-5)
[2020-04-16 14:31] LABS: POTASSIUM 5.4 mmol/L (3.5-5.1)
[2020-04-17] VITALS (35 sets, daily range): BP systolic 90–140; BP diastolic 33–83
[2020-04-17 04:05] LABS: ABSOLUTE BASOPHILS 0.1 thou/uL (0.0-0.2); ABSOLUTE LYMPHOCYTES 1.5 thou/uL (0.8-5.3); ABSOLUTE MONOCYTES 1.5 thou/uL (0.0-1.2); ABSOLUTE NEUTROPHILS 19.9 thou/uL (1.6-8.1); BASOPHILS 0.5 %; EOSINOPHILS 0.1 %; HEMATOCRIT 33.8 % (37.0-47.0); HEMOGLOBIN 10.9 gm/dL (12.0-15.0); LYMPHOCYTES 6.6 %; MCH 28.4 pg (26.0-34.0); MCHC 32.3 g/dL (28.0-37.0); MONOCYTES 6.5 %; MPV 9.6 fl. (7.2-11.1); NUCLEATED RBCS 0 /100WBC; PLATELET COUNT* 149 thou/uL (150-400); POLYS 86.3 %; RBC 3.84 mil/uL (4.20-5.00)
[2020-04-17 04:55] LABS: ALBUMIN 2.4 g/dL (3.4-5.0); CALCIUM 6.9 mg/dL (8.5-10.1); CREATININE 2.7 mg/dL (0.6-1.3); MAGNESIUM 1.8 mg/dL (1.8-2.4); PHOSPHORUS* 3.9 mg/dL (2.5-4.9); TOTAL BILIRUBIN 3.2 mg/dL (<0.1-1.0); TOTAL PROTEIN 4.6 g/dL (6.4-8.2)
[2020-04-17 05:46] LABS: POTASSIUM 4.2 mmol/L (3.5-5.1)
[2020-04-18] VITALS (13 sets, daily range): BP systolic 107–148; BP diastolic 39–76
[2020-04-18 05:41] LABS: HEMATOCRIT 33.8 % (37.0-47.0); MCH 28.4 pg (26.0-34.0); MCHC 32.4 g/dL (28.0-37.0); MCV 87.7 fL (80.0-100.0); MPV 8.8 fl. (7.2-11.1); RBC 3.86 mil/uL (4.20-5.00); RDW-CV 23.6 % (10.5-14.5); WBC 12.6 thou/uL (4.0-11.0)
[2020-04-18 05:57] LABS: ALBUMIN 2.3 g/dL (3.4-5.0); CALCIUM 7.5 mg/dL (8.5-10.1); MAGNESIUM 1.8 mg/dL (1.8-2.4); PHOSPHORUS* 2.9 mg/dL (2.5-4.9); POTASSIUM 3.5 mmol/L (3.5-5.1)
--- NOTE | 2020-04-18 09:28 | EKG ---
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: MALI : 1945 Requested By: King Morales Order Number: [id number] Reading MD: King Morales Measurements Intervals [place] Rate: 78 P: 59 [place]: 157 QRS: -13 QRSD: 110 T: 208 QT: 361 QTc: 412 Interpretive Statements Sinus rhythm nonspecific t wave changes poor r wave progression Baseline wander in lead(s) I,II,aVR Compared to ECG 04/15/2020 13:00:59 no change Electronically Signed On 04-18-2020 9:28:43 CDT by King Morales [email or web address] <ELECTRONICALLY SIGNED> By: King Morales MD, [facility] 04/18/20 0928 2 King Morales MD, [facility] /EPI
--- NOTE | 2020-04-18 10:56 | EKG ---
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: JOANN : 1945 Requested By: Hebert Rodriges Order Number: [id number] Sonia MD: King Morales Measurements Intervals [place] Rate: 92 P: [place]: QRS: -38 QRSD: 122 T: 30 QT: 424 QTc: 525 Interpretive Statements Atrial fibrillation Nonspecific IVCD with LAD Anterior infarct, old Compared to ECG 04/15/2020 13:00:59 atrial flutter no longer noted Myocardial infarct finding still present Electronically Signed On 04-18-2020 10:56:47 CDT by King Morales [email or web address] <ELECTRONICALLY SIGNED> By: King Morales MD, [facility] 04/18/20 1056 1655 1655 King Morales MD, [facility] /EPI
--- NOTE | 2020-04-18 12:36 | CON ---
[address] [address] CONSULTATION Name: KIERRA SHARP Room: [address] ADM IN M.R.#: [id number] Admission: 04/14/20 Attend Phys: Juli Argueta Discharge: Date of : 47 Report #: [id number] THIS REPORT FOR: //name// cc: Alex Lainez Ahmad W. DO ~ THIS REPORT FOR: //name// CC: Alex Rodriges CONSULTING PHYSICIAN: Hebert Rodriges DO REASON FOR CONSULTATION: Acute kidney injury. HISTORY OF PRESENT ILLNESS: The patient is a 74-year-old female who is admitted with shortness of breath and atrial fibrillation with rapid ventricular response. She has been seen by Cardiology. We were consulted to see her because of elevated creatinine and hyperkalemia with severe metabolic acidosis. Her potassium was medically managed and improved with insulin and bicarbonate drip. She is awake, alert. Has a Alexander catheter in and seems to be comfortable at present time. She does not offer any complaints. REVIEW OF SYSTEMS: Constitutional, psych, heme, eyes, ENT, respiratory, cardiac, GI, , endocrine, all negative except as documented above. PAST MEDICAL HISTORY: Diabetes, hypertension, aortic stenosis, combined systolic and diastolic heart failure, history of stroke, expressive aphasia. FAMILY HISTORY: Not pertinent in this 74-year-old female. SOCIAL HISTORY: No tobacco. CURRENT MEDICATIONS: Reviewed. PHYSICAL EXAMINATION: VITAL SIGNS: Blood pressure 93/55, pulse 86, respirations 25, temperature 35.9. GENERAL: No acute distress. EYES: Open. EARS: Externally normal. CARDIOVASCULAR: Regular rate. LUNGS: Diminished breath sounds. ABDOMEN: Soft. MUSCULOSKELETAL: Nontender. PSYCHIATRIC: Awake, alert. LABORATORY DATA: White cell count 31, hemoglobin 9.8, platelets 142. Sodium 131, potassium 4.9, chloride 97, bicarbonate 23, BUN 51, creatinine 2.3, [place] [address] CONSULTATION Name: KIERRA SHARP Room: [address] IN [facility].#: [id number] Admission: 04/14/20 Attend Phys: Juli Argueta Discharge: Date of : 47 Report #: [id number] 137, calcium 7.8, ALT 6820, AST 13,021. Albumin is 2.9. ASSESSMENT: 1. Acute kidney injury in the setting of hypotension. Also on Lasix and losartan at home in the setting of reduced ejection fraction of 20-25% with diastolic dysfunction and mild aortic stenosis. Admission creatinine 2.3, creatinine was 0.8 on 04/14/2020. 2. Hypoalbuminemia. Albumin of 2.9. 3. Elevated liver functions, suspected shock liver. 4. Metabolic acidosis with lactic acidosis. Initial bicarbonate was 6 with a pH of 7.28. 5. Hematuria, noted on urinalysis. 6. Proteinuria, noted on urinalysis. 7. Atrial fibrillation/flutter. 8. Combined systolic and diastolic heart failure with 04/01/2020 echocardiogram showing an ejection fraction of 20-25% with mild aortic stenosis, moderate mitral stenosis, moderate tricuspid regurgitation and pulmonary artery pressure of 50. 9. History of cerebrovascular accident, left MCA territory. 10. Diabetes type 2. 11. Thyrotoxicosis, on methimazole. PLAN: 1. Hyponatremia. We will monitor. 2. On bicarbonate drip. We will continue. 3. On bicarbonate drip. We will continue. 4. Check CK. 5. Recheck potassium to ensure stability. 6. She is oliguric, but we will monitor. There are no acute indications for dialysis at this time, pending review of above potassium result. 7. Check renal ultrasound. 8. Check lab again in the a.m. Case was discussed with ICU nurse. Thank you for requesting my opinion in the care and management of this patient. <ELECTRONICALLY SIGNED> By: Roxane Velez MD 04/18/20 1236 1338 1456Abeata Velez MD /nt
--- NOTE | 2020-04-18 16:00 | CON ---
[address] [address] CONSULTATION Name: KIERRA SHARP Room: [address] ADM IN M.R.#: [id number] Admission: 04/14/20 Attend Phys: Juli Argueta Discharge: Date of : 47 Report #: [id number] THIS REPORT FOR: //name// cc: Alex Lainez Ahmad W. DO ~ THIS REPORT FOR: //name// CC: Alex Schneider MD [facility] Hebert Rodriges CARDIOLOGY CONSULTATION INDICATION: Atrial flutter with rapid ventricular response rate. HISTORY OF PRESENT ILLNESS: The patient is a very pleasant 74-year-old white female with a history of paroxysmal supraventricular tachycardia. She had a recently diagnosed cardiomyopathy with an ejection fraction of 30%. She has a history of a stroke approximately 1 year ago. At that time, her ejection fraction was 60%. Her flecainide was recently discontinued due to left ventricular systolic dysfunction. She returns to the hospital with complaints of shortness of breath. She is moderately aphasic from her stroke making a full history difficult. She denies chest pain. She is without other cardiac complaint at this time. PAST MEDICAL HISTORY: 1. Recently diagnosed cardiomyopathy. 2. Combined systolic and diastolic heart failure. 3. Paroxysmal supraventricular tachycardia and now atrial flutter. 4. Hypercoagulable due to atrial arrhythmias. 5. History of stroke approximately 1 year ago with resultant aphasia. 6. Hyperthyroidism. 7. Moderate aortic stenosis. 8. Hypertension. PAST SURGICAL HISTORY: 1. Hysterectomy. 2. Tonsillectomy. 3. Carpal tunnel surgery. 4. History of melanoma, status post resection. 5. Back surgery. 6. Hyperlipidemia. 7. Type 2 diabetes mellitus. ALLERGIES: [place] [address] CONSULTATION Name: KIERRA SHARP Room: [address] IN [facility]#: [id number] Admission: 04/14/20 Attend Phys: Juli Argueta Discharge: Date of : 47 Report #: [id number] HOME MEDICATIONS: Tylenol 500 mg every 6 hours p.r.n., Eliquis 5 mg p.o. b.i.d., Lipitor 40 mg at bedtime, calcium carbonate 500 mg b.i.d., carvedilol 6.25 mg b.i.d., iron sulfate 325 mg daily, glimepiride mg daily, losartan 25 mg daily, methimazole 20 mg b.i.d., Januvia 50 mg daily, spironolactone 25 mg daily, tramadol 50 mg t.i.d. p.r.n. SOCIAL HISTORY: The patient does not drink alcohol. She is a nonsmoker. FAMILY HISTORY: Noncontributory. REVIEW OF SYSTEMS: As per HPI, otherwise, unremarkable. PHYSICAL EXAMINATION: VITAL SIGNS: Stable. Blood pressure 124/69, pulse presently 144. GENERAL: This is a thin elderly white female, in no distress. Mood and affect appropriate. HEENT: Extraocular muscles intact. Mucous membranes are moist. NECK: Shows no jugular venous distention. There are no carotid bruits. CHEST: Reveals diminished breath sounds without wheezes or rales. CARDIAC: Reveals a tachycardic rhythm that is regular, without gallop. There is a 2/6 systolic ejection murmur. ABDOMEN: Reveals normal bowel sounds. The abdomen is soft, nontender. EXTREMITIES: Shows trace ankle and tibial edema. SKIN: Dry. RADIOLOGICAL DATA: A 12-lead EKG shows tachycardia at a rate of 144. With carotid massage, underlying atrial flutter can be seen. LABORATORY DATA: Reviewed. Sodium 132, potassium 4.8, chloride 100, bicarbonate 18, BUN 26, creatinine 0.8, serum glucose 283. EGFR 70. Troponins less than 0.06. NT-proBNP 3728. TSH less than 0.007. Free T4 of 1.55. Coags are within normal limits. White blood cell count 9.3, hemoglobin 11.3, platelet count 238,000. Chest x-ray shows mild cardiomegaly with vascular congestion. IMPRESSION AND RECOMMENDATIONS: 1. Atrial flutter with rapid ventricular response rate. We will start amiodarone drip with amiodarone bolus in an attempt to restore normal sinus rhythm. Continue chronic anticoagulation with Eliquis. 2. Acute on chronic combined heart failure. Give IV Lasix for diuresis. Continue home medications as outlined above including carvedilol, losartan and spironolactone. We will adjust heart failure medications as tolerated. 3. Cardiomyopathy, etiology not clear. Obtain stress testing in a.m. 4. Hypertension. Blood pressure normal at present. We will follow. 5. History of dyslipidemia. [place] [address] CONSULTATION Name: KIERRA SHARP Room: [address] IN M.R.#: [id number] Admission: 04/14/20 Attend Phys: Juli Argueta Discharge: Date of : 47 Report #: [id number] 6. Moderate aortic stenosis by echocardiogram 10 days ago. Recommend repeat study in 6 months. 7. Diabetes per hospitalist. 8. History of cerebrovascular accident with ongoing aphasia. She is now anticoagulated. <ELECTRONICALLY SIGNED> By: Jabier Combs MD, FACC 04/18/20 1600 1645 1731Micsuresh Combs MD, FACC /nt
--- NOTE | 2020-04-18 18:07 | CARDNUC ---
[place] [address] CARDIAC NUCLEAR IMAGING REPORT Name: ARONKIERRA DAVID Room: [address] IN [facility]#: [id number] Admission: 04/14/20 Attend Phys: Hebert Rodriges Discharge: Date of : 47 Date of Service: 04/18/20 1807 Report #: [id number] THIS REPORT FOR: cc: Alex Lainez Ahmad W. DO Liston, Michael J. MD [facility] ~ APPROVED REPORT Imaging Protocol: Stress Tc-99m/Rest Tc-99m 1 day Study performed: 04/14/2020 16:45:00 Indication: Dyspnea Patient Location: In-Patient Room #: 222 Stress Tech: Brynn Canseco Stress Nurse: Grecia Resendiz RN Ht: 5 ft 5 in Wt: 156 lbs BSA: 1.78 m2 BMI: 25.95 Medical History Medical History: CAD s/p AK, CAD s/p stent, Cardiomyopathy, CHF, Hyperlipidemia, HTN, Diabetes Medications: amiodarone, furosemide, losartan, apixaban, propranolol, spironolactone, atorvastatin Allergies: penicillin, codeine, pregabalin Cardiac Risk Factors: Age, DM, HTN, Hyperlipidemia Exercise History: Sedentary Meds Held (24 hrs): propranolol Resting Data Rest SPECT myocardial perfusion imaging was performed in supine position 30 minutes following the intravenous injection of 10.8 mCi of Tc-99m Sestamibi. Time of rest injection: 08:45 The images were gated to evaluate regional wall motion and calculate left ventricular ejection fraction. Administration Route: IV Administration Site: Left Arm Pharmacologic Stress Pharmacologic stress test was performed by injecting Regadenoson 0.4 mg IV push over 10-15 seconds immediately followed by the intravenous injection of 34.3 mCi of Tc-99[place] [address] CARDIAC NUCLEAR IMAGING REPORT Name: KIERRA SHARP Room: [address]#: [id number] Admission: 04/14/20 Attend Phys: Hebert Rodriges Discharge: Date of : 47 Date of Service: 04/18/20 180 Report #: [id number] Time of stress injection: 11:00 Administration Route: IV Administration Site: Left Arm Heart Rate at time of stress injection: 124 bpm. Gated Stress SPECT was performed 40 minutes after stress injection. The images were gated to evaluate regional wall motion and calculate left ventricular ejection fraction. Stress Test Details Stress Test: Pharmacologic stress testing performed using 0.4 mg of regadenoson per 5 mL given IV over 10 seconds. Reason for pharmacologic stress test: physical limitation. 60 mg caffeine given for nausea. HR Max Heart Rate (APMHR): 147 bpm Resting HR: 101 bpm Target HR (85% APMHR): 124 bpm Max HR Achieved: 126 bpm % of APMHR: 85 Recovery HR: 99 bpm BP Resting BP: 127/68 mmHg Max BP: 113/70 mmHg Recovery BP: 115/55 mmHg ECG Resting ECG: Sinus tachycardia with nonspecific ST-T wave changes Stress ECG: Sinus tachycardia with nonspecific ST-T wave changes ST Change: None Arrhythmia: None Recovery ECG: Sinus tachycardia with nonspecific ST-T wave changes Recovery ST Change: None Recovery Arrhythmia: None Clinical Reason for Termination: Completed protocol The patient had atypical symptoms felt to be due to medication effect and not cardiac in nature. Nurse Comments pt given zofran 4 mg ivp for n/v. pt given caffeine 60 mg ivp for n/n pt unable to stand unassisted therefor [place] [address] CARDIAC NUCLEAR IMAGING REPORT Name: KIERRA SHARP Room: [address]#: [id number] Admission: 04/14/20 Attend Phys: Hebert Rodriges Discharge: Date of : 47 Date of Service: 04/18/20 1807 Report #: [id number] Stress ECG Conclusion The baseline twelve-lead EKG shows sinus tachycardia with nonspecific ST segment and T wave abnormality. EKGs obtained during and post Lexiscan infusion showed persistent sinus tachycardia with no significant ST or T wave changes when compared to the baseline. There were no significant stress-induced arrhythmias. Study Quality Study: Good Artifact: Mild Diaphragmatic artifact Study Data At rest, the left ventricular ejection fraction was 36%.. Post stress, the left ventricular ejection was 19%.. TID = 1.00. Perfusion Perfusion images obtained at rest and post Lexiscan stress showed uniform uptake of the radioisotope throughout the myocardium. Wall Motion There is global hypokinesis with dyskinesis of the septum. Nuclear Conclusion ECG Findings: non-diagnostic Clinical Findings: negative for ischemia Nuclear Findings: negative for ischemia Exercise Capacity: not assessed Left Ventricular Function: abnormal Perfusion study show no defect to suggest infarct or ischemia. Left ventricular systolic function is severely decreased on gated studies. This study is high risk based on severe LV systolic dysfunction. <Conclusion> The baseline twelve-lead EKG shows sinus tachycardia with nonspecific ST segment and T wave abnormality. EKGs obtained during and post Lexiscan infusion showed persistent sinus tachycardia with no significant ST or T wave changes when compared to the baseline. There were no significant stress-induced arrhythmias. <ELECTRONICALLY SIGNED> By: Jabier Combs MD, FACC 04/18/201806 06 06 Jabier Combs MD, FACC /INF
[2020-04-19 00:08] VITALS: BP 143/62
[2020-04-19 04:47] VITALS: BP 147/70
[2020-04-19 10:02] VITALS: BP 151/80
[2020-04-19 10:06] LABS: ABSOLUTE BASOPHILS 0.1 thou/uL (0.0-0.2); ABSOLUTE EOSINOPHILS 0.1 thou/uL (0.0-0.7); ABSOLUTE LYMPHOCYTES 0.7 thou/uL (0.8-5.3); ABSOLUTE MONOCYTES 1.1 thou/uL (0.0-1.2); BASOPHILS 0.9 %; EOSINOPHILS 1.2 %; HEMATOCRIT 36.1 % (37.0-47.0); HEMOGLOBIN 11.6 gm/dL (12.0-15.0); LYMPHOCYTES 8.1 %; MCH 28.3 pg (26.0-34.0); MCHC 32.2 g/dL (28.0-37.0); MCV 87.9 fL (80.0-100.0); MONOCYTES 12.5 %; MPV 9.3 fl. (7.2-11.1); NUCLEATED RBCS 0 /100WBC; PLATELET COUNT* 143 thou/uL (150-400); POLYS 77.3 %; RBC 4.11 mil/uL (4.20-5.00); RDW-CV 23.4 % (10.5-14.5); WBC 9.1 thou/uL (4.0-11.0)
[2020-04-19 10:24] LABS: ALBUMIN 2.4 g/dL (3.4-5.0); CALCIUM 7.6 mg/dL (8.5-10.1); CREATININE 1.5 mg/dL (0.6-1.3); POTASSIUM 3.7 mmol/L (3.5-5.1); TOTAL PROTEIN 5.2 g/dL (6.4-8.2)
[2020-04-19 10:32] LABS: ANISOCYTOSIS 2+; PLATELET ESTIMATE ADEQUATE
--- NOTE | 2020-04-19 11:40 | EKG ---
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: : 1945 Requested By: King Morales Order Number: [id number] Reading MD: Jabier Combs Measurements Intervals [place] Rate: 77 P: 22 [place]: 157 QRS: -11 QRSD: 103 T: 181 QT: 349 QTc: 395 Interpretive Statements Sinus rhythm Consider left atrial enlargement Poor R wave progression, consider anterior infarct, old Borderline repolarization abnormality Compared to ECG 04/17/2020 07:13:43 Myocardial infarct finding now present T-wave abnormality no longer present Poor R-wave progression no longer present Electronically Signed On 04-19-2020 11:40:34 CDT by Jabier Combs [email or web address] <ELECTRONICALLY SIGNED> By: Jabier Combs MD, FACC 04/19/20 1140 0848 Jabier Combs MD, FAC /EPI
[2020-04-19 12:00] VITALS: BP 120/54
[2020-04-19 16:00] VITALS: BP 127/55
[2020-04-19 20:00] VITALS: BP 137/71
[2020-04-20] VITALS (7 sets, daily range): BP systolic 104–130; BP diastolic 46–76
[2020-04-21] VITALS: BP 123/64
[2020-04-21 04:04] VITALS: BP 146/72
[2020-04-21 05:03] LABS: HEMATOCRIT 33.7 % (37.0-47.0); HEMOGLOBIN 10.9 gm/dL (12.0-15.0); MCH 28.2 pg (26.0-34.0); MCHC 32.4 g/dL (28.0-37.0); MCV 87.2 fL (80.0-100.0); MPV 8.9 fl. (7.2-11.1); RBC 3.87 mil/uL (4.20-5.00); RDW-CV 23.3 % (10.5-14.5); WBC 7.6 thou/uL (4.0-11.0)
[2020-04-21 05:30] LABS: ALBUMIN 2.2 g/dL (3.4-5.0); CREATININE 1.1 mg/dL (0.6-1.3); MAGNESIUM 1.8 mg/dL (1.8-2.4); POTASSIUM 3.5 mmol/L (3.5-5.1); TOTAL BILIRUBIN 1.2 mg/dL (<0.1-1.0); TOTAL PROTEIN 4.9 g/dL (6.4-8.2)
[2020-04-21 08:00] VITALS: BP 128/78
[2020-04-21] MEDS ORDERED: HUMALOG100 UNIT/1 SUBQ (09:28)
[2020-04-21] MEDS ORDERED: MACROBID 100 M100 MG PO (09:28)
[2020-04-21] MEDS ORDERED: ELIQUIS5 MG PO (09:28)
[2020-04-21] MEDS ORDERED: PACERONE 200 M200 M1 PO (09:28)
[2020-04-21] MEDS ORDERED: ASPIR 8181 MG PO (10:03)
== END 2020-04-21 15:34 | disposition short-term general hospital (02) | DRG 64 ==
LOC: M.ERS 13:00 → M.TBA-ER 14:04 → M.2W 14:04 → M.ICU 04-15 19:11 → M.2W 04-18 09:58
PROVIDERS: Emergency Medicine Emergency Medical Services; Internal Medicine; Internal Medicine Cardiovascular Disease; Internal Medicine Nephrology; Pathology Anatomic Pathology & Clinical Pathology; ADMIT Internal Medicine; ATTEND Internal Medicine
PROC: 02HV33Z Insertion of Infusion Device into Superior Vena Cava, Percutaneous Approach (ICD-10-PCS; principal; 2020-04-15)
DX: I63.443 Cerebral infarction due to embolism of bilateral cerebellar arteries (principal); N17.0 Acute kidney failure with tubular necrosis; I50.43 Acute on chronic combined systolic (congestive) and diastolic (congestive) heart failure; G93.41 Metabolic encephalopathy; R65.11 Systemic inflammatory response syndrome (SIRS) of non-infectious origin with acute organ dysfunction; I13.0 Hypertensive heart and chronic kidney disease with heart failure and stage 1 through stage 4 chronic kidney disease, or unspecified chronic kidney disease; N39.0 Urinary tract infection, site not specified; I48.92 Unspecified atrial flutter; D68.59 Other primary thrombophilia; E87.2 Acidosis; E46 Unspecified protein-calorie malnutrition; E87.0 Hyperosmolality and hypernatremia; J90 Pleural effusion, not elsewhere classified; E87.1 Hypo-osmolality and hyponatremia; I69.351 Hemiplegia and hemiparesis following cerebral infarction affecting right dominant side; I42.9 Cardiomyopathy, unspecified; E03.9 Hypothyroidism, unspecified; Z68.30 Body mass index [BMI] 30.0-30.9, adult; N18.9 Chronic kidney disease, unspecified; E11.22 Type 2 diabetes mellitus with diabetic chronic kidney disease; M06.9 Rheumatoid arthritis, unspecified; K21.9 Gastro-esophageal reflux disease without esophagitis; E05.90 Thyrotoxicosis, unspecified without thyrotoxic crisis or storm; I48.91 Unspecified atrial fibrillation; I35.0 Nonrheumatic aortic (valve) stenosis; M19.032 Primary osteoarthritis, left wrist; E86.0 Dehydration; D64.9 Anemia, unspecified; K72.90 Hepatic failure, unspecified without coma; B95.2 Enterococcus as the cause of diseases classified elsewhere; E83.51 Hypocalcemia; Z20.828 Contact with and (suspected) exposure to other viral communicable diseases; R47.1 Dysarthria and anarthria; E78.5 Hyperlipidemia, unspecified; Z90.710 Acquired absence of both cervix and uterus; Z90.49 Acquired absence of other specified parts of digestive tract; Z85.820 Personal history of malignant melanoma of skin; Z79.899 Other long term (current) drug therapy; Z79.01 Long term (current) use of anticoagulants; Z88.0 Allergy status to penicillin; Z88.8 Allergy status to other drugs, medicaments and biological substances; I69.320 Aphasia following cerebral infarction

== ENCOUNTER 2020-04-21 10:26 | Inpatient (IN) | payer OTHER ==
[~2020-04-21] VITALS: Ht 167.6 cm; Wt 72.4 kg
[~2020-04-21 10:26] MED LIST changes: +ASPIR 8181 MG PO; +MACROBID 100 M100 MG PO; +PACERONE 200 M200 M1 PO
[2020-04-21 19:30] VITALS: BP 118/53
[2020-04-22 04:09] LABS: HEMATOCRIT 33.8 % (37.0-47.0); HEMOGLOBIN 11.1 gm/dL (12.0-15.0); MCH 28.4 pg (26.0-34.0); MCHC 32.7 g/dL (28.0-37.0); MCV 86.9 fL (80.0-100.0); MPV 9.3 fl. (7.2-11.1); RBC 3.89 mil/uL (4.20-5.00); WBC 8.4 thou/uL (4.0-11.0)
[2020-04-22 04:27] LABS: CALCIUM 8.1 mg/dL (8.5-10.1); CREATININE 1.2 mg/dL (0.6-1.3); POTASSIUM 3.5 mmol/L (3.5-5.1)
[2020-04-22 08:00] VITALS: BP 148/77
[2020-04-22 19:50] VITALS: BP 119/54
[2020-04-23 08:00] VITALS: BP 147/69
[2020-04-23 20:23] VITALS: BP 119/56
[2020-04-24 08:00] VITALS: BP 138/72
[2020-04-24 19:00] VITALS: BP 131/84
[2020-04-25 03:24] LABS: HEMATOCRIT 31.3 % (37.0-47.0); HEMOGLOBIN 10.2 gm/dL (12.0-15.0); MCH 28.6 pg (26.0-34.0); MCHC 32.6 g/dL (28.0-37.0); MCV 87.6 fL (80.0-100.0); MPV 9.6 fl. (7.2-11.1); RBC 3.57 mil/uL (4.20-5.00); RDW-CV 22.1 % (10.5-14.5); WBC 8.9 thou/uL (4.0-11.0)
[2020-04-25 03:48] LABS: CALCIUM 8.1 mg/dL (8.5-10.1); CREATININE 1.2 mg/dL (0.6-1.3); POTASSIUM 3.9 mmol/L (3.5-5.1)
[2020-04-25 07:55] VITALS: BP 138/71
[2020-04-25 19:00] VITALS: BP 147/67
[2020-04-26 07:56] VITALS: BP 145/88
[2020-04-26 19:00] VITALS: BP 134/51
[2020-04-27 08:11] VITALS: BP 135/87
[2020-04-27 19:30] VITALS: BP 132/72
[2020-04-28 08:00] VITALS: BP 139/56
[2020-04-28 19:53] VITALS: BP 142/96
[2020-04-29 07:30] VITALS: BP 146/65
[2020-04-29 13:51] VITALS: BP 127/55
[2020-04-29 15:21] LABS: ABSOLUTE BASOPHILS 0.1 thou/uL (0.0-0.2); ABSOLUTE EOSINOPHILS 0.1 thou/uL (0.0-0.7); ABSOLUTE LYMPHOCYTES 1.6 thou/uL (0.8-5.3); ABSOLUTE MONOCYTES 0.8 thou/uL (0.0-1.2); ABSOLUTE NEUTROPHILS 6.5 thou/uL (1.6-8.1); BASOPHILS 0.9 %; EOSINOPHILS 0.8 %; HEMATOCRIT 34.6 % (37.0-47.0); HEMOGLOBIN 11.2 gm/dL (12.0-15.0); MCH 29.1 pg (26.0-34.0); MCHC 32.5 g/dL (28.0-37.0); MCV 89.5 fL (80.0-100.0); MONOCYTES 8.8 %; NUCLEATED RBCS 0 /100WBC; PLATELET COUNT* 178 thou/uL (150-400); POLYS 71.5 %; RBC 3.87 mil/uL (4.20-5.00); RDW-CV 21.1 % (10.5-14.5); WBC 9.1 thou/uL (4.0-11.0)
[2020-04-29 15:34] LABS: ALBUMIN 2.3 g/dL (3.4-5.0); POTASSIUM 4.5 mmol/L (3.5-5.1); TOTAL BILIRUBIN 0.8 mg/dL (<0.1-1.0); TOTAL PROTEIN 6.1 g/dL (6.4-8.2)
[2020-04-29 15:49] LABS: PLATELET ESTIMATE ADEQUATE
[2020-04-29 15:50] LABS: ANISOCYTOSIS 1+; MICROCYTES 1+; POIKILOCYTOSIS 1+
[2020-04-29 20:08] VITALS: BP 144/60
[2020-04-30 07:30] VITALS: BP 149/64
[2020-04-30 08:00] VITALS: BP 149/64
[2020-04-30 20:09] VITALS: BP 140/65
[2020-05-01 07:30] VITALS: BP 164/79
[2020-05-01 08:00] VITALS: BP 164/79
[2020-05-01 19:23] VITALS: BP 154/70
[2020-05-02 01:10] VITALS: BP 149/78
[2020-05-02 07:46] VITALS: BP 157/66
[2020-05-02 20:00] VITALS: BP 140/70
[2020-05-03 07:33] VITALS: BP 141/69
[2020-05-03 20:00] VITALS: BP 146/50
[2020-05-04 07:30] VITALS: BP 163/88
[2020-05-04 19:25] VITALS: BP 130/59
[2020-05-05 08:00] VITALS: BP 150/49
[2020-05-05 20:03] VITALS: BP 129/60
[2020-05-06 08:17] VITALS: BP 129/60
[2020-05-06 08:27] VITALS: BP 149/75
[2020-05-06] MEDS ORDERED: CARVEDILOL3.125 MG PO (11:01)
[2020-05-06] MEDS ORDERED: ELIQUIS5 MG PO (11:01)
[2020-05-06] MEDS ORDERED: PACERONE 200 M200 M1 PO (11:01)
[2020-05-06] MEDS ORDERED: COZAAR 25 MG TA25 M1 PO (11:07)
[2020-05-06 14:03] VITALS: BP 129/60
[2020-05-06 14:16] VITALS: BP 129/60
[2020-05-06 15:24] VITALS: BP 129/60
== END 2020-05-06 15:25 | disposition home health service (06) | DRG 56 ==
LOC: M.REH 10:26
PROVIDERS: Internal Medicine; ADMIT Physical Medicine & Rehabilitation; ATTEND Physical Medicine & Rehabilitation
DX: I69.354 Hemiplegia and hemiparesis following cerebral infarction affecting left non-dominant side (principal); I63.9 Cerebral infarction, unspecified; N17.0 Acute kidney failure with tubular necrosis; G93.41 Metabolic encephalopathy; R65.11 Systemic inflammatory response syndrome (SIRS) of non-infectious origin with acute organ dysfunction; I48.20 Chronic atrial fibrillation, unspecified; I50.42 Chronic combined systolic (congestive) and diastolic (congestive) heart failure; N39.0 Urinary tract infection, site not specified; I13.0 Hypertensive heart and chronic kidney disease with heart failure and stage 1 through stage 4 chronic kidney disease, or unspecified chronic kidney disease; D68.69 Other thrombophilia; M84.48XA Pathological fracture, other site, initial encounter for fracture; I48.92 Unspecified atrial flutter; I35.0 Nonrheumatic aortic (valve) stenosis; N18.9 Chronic kidney disease, unspecified; E11.22 Type 2 diabetes mellitus with diabetic chronic kidney disease; E78.5 Hyperlipidemia, unspecified; M06.9 Rheumatoid arthritis, unspecified; K21.9 Gastro-esophageal reflux disease without esophagitis; M19.042 Primary osteoarthritis, left hand; B96.89 Other specified bacterial agents as the cause of diseases classified elsewhere; K04.7 Periapical abscess without sinus; E86.0 Dehydration; Z88.6 Allergy status to analgesic agent; Z88.0 Allergy status to penicillin; Z88.8 Allergy status to other drugs, medicaments and biological substances; Z90.710 Acquired absence of both cervix and uterus; Z79.82 Long term (current) use of aspirin; Z79.899 Other long term (current) drug therapy; I69.322 Dysarthria following cerebral infarction

== ENCOUNTER 2021-02-21 11:40 | Emergency (ER) | payer OTHER ==
[~2021-02-21] VITALS: Ht 162.6 cm; Wt 76.0 kg
[~2021-02-21 11:40] MED LIST changes: +CARVEDILOL3.125 MG PO
[2021-02-21] MEDS ORDERED: JANUVIA100 MG PO (11:59)
[2021-02-21] MEDS ORDERED: NAMENDA 5 MG TAB5 M1 PO (11:59)
[2021-02-21 12:10] LABS: URINE BILIRUBIN NEGATIVE (Negative); URINE BLOOD NEGATIVE (Negative); URINE CLARITY CLEAR; URINE COLOR YELLOW; URINE GLUCOSE-RANDOM NEGATIVE (Negative); URINE KETONES NEGATIVE (Negative); URINE LEUKOCYTES-REFLEX NEGATIVE (Negative); URINE NITRITE-REFLEX NEGATIVE (Negative); URINE PROTEIN NEGATIVE (Negative); URINE SPECIFIC GRAVITY 1.025 (1.005-1.030); URINE UROBILINOGEN 0.2 E.U./dl (0.2-1.0)
[2021-02-21 12:24] LABS: ABSOLUTE BASOPHILS 0.1 thou/uL (0.0-0.2); ABSOLUTE EOSINOPHILS 0.1 thou/uL (0.0-0.7); ABSOLUTE LYMPHOCYTES 1.3 thou/uL (0.8-5.3); ABSOLUTE MONOCYTES 0.6 thou/uL (0.0-1.2); ABSOLUTE NEUTROPHILS 6.5 thou/uL (1.6-8.1); BASOPHILS 1.2 %; EOSINOPHILS 1.1 %; HEMATOCRIT 39.6 % (37.0-47.0); HEMOGLOBIN 13.3 gm/dL (12.0-15.0); LYMPHOCYTES 14.8 %; MCH 30.5 pg (26.0-34.0); MCHC 33.7 g/dL (28.0-37.0); MCV 90.6 fL (80.0-100.0); MONOCYTES 6.5 %; MPV 8.3 fl. (7.2-11.1); NUCLEATED RBCS 0 /100WBC; PLATELET COUNT* 228 thou/uL (150-400); POLYS 76.4 %; RBC 4.37 mil/uL (4.20-5.00); RDW-CV 14.7 % (10.5-14.5); WBC 8.5 thou/uL (4.0-11.0)
[2021-02-21 12:31] LABS: CALCIUM 8.8 mg/dL (8.5-10.1); CREATININE 0.7 mg/dL (0.6-1.3)
[2021-02-21 12:46] LABS: ALBUMIN 3.7 g/dL (3.4-5.0); CK-MB MASS 1.4 ng/mL (<0.5-3.6); TOTAL BILIRUBIN 0.4 mg/dL (<0.1-1.0); TOTAL PROTEIN 7.3 g/dL (6.4-8.2)
[2021-02-21 12:56] VITALS: BP 145/74
--- NOTE | 2021-02-21 14:47 | EKG ---
[place] [address] ELECTROCARDIOGRAM REPORT Name: KIERRA SHARP JOANN Room: [facility]#: [id number] Admission: 02/21/21 Attend Phys: Discharge: 02/21/21 Date of : 47 Date of Service: 02/21/21 1208 Report #: [id number] THIS REPORT FOR: //name// [facility] ED Test Date: 2021-02-21 Test Time: 12:08:09 Pat Name: KIERRA SHARP Department: Room: Gender: Deputy United [place] Marshal: : 1945 Requested By: Hadley Houston Order Number: [id number] MD: Jabier Combs Measurements Intervals [place] Rate: 70 P: -18 [place]: 171 QRS: -28 QRSD: 111 T: 61 QT: 435 QTc: 470 Interpretive Statements Sinus rhythm Consider left atrial enlargement Left ventricular hypertrophy Anterior infarct, old Compared to ECG 04/19/2020 08:48:20 Left ventricular hypertrophy now present Myocardial infarct finding still present Electronically Signed On 02-21-2021 14:47:12 CDT by Jabier Combs [email or web address] <ELECTRONICALLY SIGNED> By: Jabier Combs MD, FAC 02/21/21 1447 1208 1208 Jabier Combs MD, [facility] /EPI
== END 2021-02-21 12:57 | disposition home or self-care (01) ==
LOC: M.ERS 11:40
PROVIDERS: Family Medicine
DX: R41.82 Altered mental status, unspecified (principal); E11.9 Type 2 diabetes mellitus without complications; M19.90 Unspecified osteoarthritis, unspecified site; I11.0 Hypertensive heart disease with heart failure; I50.9 Heart failure, unspecified; Z88.5 Allergy status to narcotic agent; Z91.041 Radiographic dye allergy status; Z88.0 Allergy status to penicillin; Z88.8 Allergy status to other drugs, medicaments and biological substances; Z91.012 Allergy to eggs; Z86.73 Personal history of transient ischemic attack (TIA), and cerebral infarction without residual deficits